=== PATIENT | male | born 1935 | race Caucasian/White ===

== ENCOUNTER → 2018-03-22 09:49 | Outpatient (CLI) | payer MEDICARE, OTHER, SELFPAY ==
[2018-03-22 10:45] LABS: BUN Creatinine Ratio 17.1 (6-22); Blood Urea Nitrogen 12 mg/dL (9-20); Calcium 9.2 mg/dL (8.4-10.2); Carbon Dioxide 32 mmol/L (22-32); Chloride 97 mmol/L (98-107); Estimated Glomerular Filt Rate > 60.0 mL/min (>60); Glucose 99 mg/dL (80-110); HEMOLYSIS < 15 (0-50); Potassium 4.1 mmol/L (3.4-5.1); Sodium 140 mmol/L (137-145)
== END ==
PROVIDERS: PCP Internal Medicine; Visit Provider Internal Medicine
DX: I10 Essential (primary) hypertension (principal)
CPT/HCPCS: 36415; 80048

== ENCOUNTER → 2018-06-13 07:24 | Outpatient (CLI) | payer MEDICARE, OTHER, SELFPAY ==
[2018-06-13 08:37] LABS: Alanine Aminotransferase 27 IU/L (21-72); Albumin 4.3 g/dL (3.5-5.0); Albumin Globulin Ratio 1.6 (1.0-2.8); Alkaline Phosphatase 49 U/L (38-126); Aspartate Aminotransferase 26 IU/L (17-59); BUN Creatinine Ratio 17.1 (6-22); Bilirubin Total 0.8 mg/dL (0.2-1.3); Blood Urea Nitrogen 12 mg/dL (9-20); Calcium 8.9 mg/dL (8.4-10.2); Carbon Dioxide 29 mmol/L (22-32); Chloride 102 mmol/L (98-107); Estimated Glomerular Filt Rate > 60.0 mL/min (>60); Globulin 2.7 g/dL (1.7-4.1); Glucose 95 mg/dL (80-110); HEMOLYSIS < 15 (0-50); Potassium 4.1 mmol/L (3.4-5.1); Sodium 142 mmol/L (137-145)
[2018-06-16 10:39] LABS: Lipoprofile NMR SEE SEPARATE REPORTS
== END ==
PROVIDERS: Family Provider Internal Medicine; PCP Internal Medicine; Visit Provider Specialist
DX: I10 Essential (primary) hypertension (principal); E78.2 Mixed hyperlipidemia
CPT/HCPCS: 36415; 80053; 83704

== ENCOUNTER → 2019-05-24 07:59 | Outpatient (CLI) | payer MEDICARE, OTHER, SELFPAY ==
[2019-05-24 09:17] LABS: Alanine Aminotransferase 19 IU/L (21-72); Albumin 4.5 g/dL (3.5-5.0); Albumin Globulin Ratio 1.5 (1.0-2.8); Alkaline Phosphatase 47 U/L (38-126); Aspartate Aminotransferase 27 IU/L (17-59); BUN Creatinine Ratio 17.5 (6-22); Bilirubin Total 0.7 mg/dL (0.2-1.3); Blood Urea Nitrogen 14 mg/dL (9-20); Calcium 9.2 mg/dL (8.4-10.2); Carbon Dioxide 31 mmol/L (22-32); Chloride 102 mmol/L (98-107); Estimated Glomerular Filt Rate > 60.0 mL/min (>60); Globulin 3.1 g/dL (1.7-4.1); Glucose 104 mg/dL (80-110); HEMOLYSIS 17 (0-50); Magnesium 2.3 mg/dL (1.6-2.3); Sodium 140 mmol/L (137-145); Total Protein 7.6 g/dL (6.3-8.2)
[2019-05-24 09:50] LABS: Thyroid Stimulating Hormone 1.63 uIU/mL (0.47-4.68)
[2019-05-28 08:29] LABS: Lipoprofile NMR SEE SEPARATE REPORTS
== END ==
PROVIDERS: PCP Internal Medicine; Visit Provider Specialist
DX: I10 Essential (primary) hypertension (principal); E78.2 Mixed hyperlipidemia
CPT/HCPCS: 36415; 80053; 83704; 83735; 84443

== ENCOUNTER → 2019-07-11 10:43 | Outpatient (CLI) | payer MEDICARE, OTHER, SELFPAY ==
--- NOTE | 2019-07-12 18:43 | DI.NM.S_ITS ---
DATE OF SERVICE: 07/11/2019 PROCEDURE PERFORMED: Exercise treadmill stress and rest myocardial perfusion imaging study with gating to assess ejection fraction and regional wall motion. ORDERING PROVIDER: Stan Boss MD INDICATIONS: The patient is a 84-year-old male status post LAD stenting in 2012 who now presents with increased exertional dyspnea and chest tightness. EXERCISE TREADMILL TESTING: The patient was able to exercise for 7 minutes 3 seconds on a standard Juan R protocol suggesting excellent exercise capacity with an LORELEI of -43% without any chest discomfort. He had a normal hemodynamic response achieving a maximum heart rate of 152 bpm (111% of his predicted maximum). He had a normal blood pressure response with a resting blood pressure of 120/60 increasing to a maximum of 180/62. His resting ECG shows probable LVH with mild ST-segment shifts abnormalities which become slightly accentuated with stress but remains nonspecific for ischemia. He had rare PVCs in recovery but no complex ectopy. At 6 minutes of exercise, at heart rate of 142 bpm, 26.0 mCi of technetium-99 Myoview was injected and the patient was imaged 15 minutes later using a gated SPECT acquisition protocol. He returned the following day and was reinjected with an additional 26.2 mCi of technetium-99 Myoview and was imaged 30 minutes later, again using a gated SPECT acquisition protocol. FINDINGS: 1. Raw Data: There is fairly good myocardial tracer uptak although there is clearly diaphragmatic and splenic attenuation of the inferior and inferolateral wall on both stress and rest images. The lung/heart ratio is normal at 0.31 with a normal TID ratio of 0.77. 2. Quantitative Gated SPECT: Post stress ejection fraction is 73% without any focal wall motion abnormality and specifically, the inferior wall appears to have fairly normal contractility. The resting ejection fraction is 67% with a similar contraction pattern. Resting end-diastolic volume is borderline increased at 121 mL. 3. Myocardial Perfusion Imaging: Post stress supine images shows a fairly prominent perfusion defect in the majority of the inferior wall from the apex to base but this defect nearly completely resolves on the prone images with a very subtle defect in the eyd-nt-onayla inferior wall with the remaining segment showing normal perfusion. There are no other perfusion defects. The resting images show a similar perfusion pattern with a more profound defect in the inferior wall and no areas of improvement. CONCLUSION: 1. Probable normal myocardial perfusion study. 2. Moderate-sized moderate fixed perfusion defect that nearly completely resolves on the prone images with raw data evidence of significant diaphragmatic attenuation. This most likely reflects diaphragmatic attenuation artifact. While a previous inferior infarction cannot be entirely excluded, the absence of any wall motion abnormality in this area mitigates against this. There is no evidence for any significant myocardial ischemia. 3. Normal left ventricular systolic function without focal wall motion abnormality and volumes at the upper limits of normal. 4. Excellent exercise capacity without angina or ECG evidence of ischemia. There were rare PVCs in recovery. Ar Ross - TRUONG/susan/ doc#: [id number]/job#: [id number] dd: 07/12/2019 17:43:00 dt: 07/12/2019 18:18:00 DICTATING /COPIES TO: Stan Boss MD COPIES MNE: LUC
== END ==
PROVIDERS: PCP Internal Medicine; Visit Provider Specialist
DX: R07.2 Precordial pain (principal); R06.09 Other forms of dyspnea; R07.89 Other chest pain; Z95.5 Presence of coronary angioplasty implant and graft
CPT/HCPCS: 78452; 93016; 93017; 93018; A9502

== ENCOUNTER → 2020-01-12 08:03 | Outpatient (CLI) | payer MEDICARE, OTHER, SELFPAY ==
[2020-01-12 09:17] LABS: Alanine Aminotransferase 20 IU/L (<50); Albumin 4.4 g/dL (3.5-5.0); Albumin Globulin Ratio 1.4 (1.0-2.8); Alkaline Phosphatase 48 U/L (38-126); Aspartate Aminotransferase 29 IU/L (17-59); BUN Creatinine Ratio 19.7 (6-22); Bilirubin Total 0.7 mg/dL (0.2-1.3); Blood Urea Nitrogen 13 mg/dL (9-20); Calcium 8.9 mg/dL (8.4-10.2); Carbon Dioxide 28 mmol/L (22-32); Chloride 104 mmol/L (98-107); Estimated Glomerular Filt Rate > 60.0 mL/min (>60); Globulin 3.2 g/dL (1.7-4.1); Glucose 104 mg/dL (80-110); HEMOLYSIS < 15 (0-50); Magnesium 2.2 mg/dL (1.6-2.3); Potassium 3.8 mmol/L (3.4-5.1); Sodium 139 mmol/L (137-145); Total Protein 7.6 g/dL (6.3-8.2)
[2020-01-15 07:45] LABS: Cholesterol, Total 120 mg/dL (100-199); HDL-Cholesterol 51 mg/dL (>39); HDL-Particle (Total) 34.8 umol/L (>=30.5); Historical Reading Comment: (.); LDL Particle 632 nmol/L (<1000); LDL Size 20.6 nm (>20.5); LDL-Cholsterol 55 mg/dL (0-99); LP-IR Score 37 (<=45); Small LDL- Particle 240 nmol/L (<=527); Triglycerides 71 mg/dL (0-149)
== END ==
PROVIDERS: PCP Internal Medicine; Referring Provider Specialist; Visit Provider Specialist
DX: I25.10 Atherosclerotic heart disease of native coronary artery without angina pectoris (principal); I10 Essential (primary) hypertension; E78.2 Mixed hyperlipidemia; E78.1 Pure hyperglyceridemia
CPT/HCPCS: 36415; 80053; 80061; 83704; 83735

== ENCOUNTER 2020-02-18 09:10 | Emergency (ER) | payer MEDICARE, OTHER, SELFPAY ==
[2020-02-18] VITALS (11 sets, daily range): BP systolic 136–162; BP diastolic 64–78; PULSE 62–78; RESP 12–18; TEMP 36.7; O2SAT 98–99; BMI 24.6
--- NOTE | 2020-02-18 10:02 | DI.CT.S_ITS ---
PROCEDURE: CT HEAD/BRAIN WO CON INDICATIONS: frontal headache for 4 days TECHNIQUE: Noncontrast 4.5 mm thick angled axial sections acquired from the foramen magnum to the vertex, with coronal and sagittal reformats. For radiation dose reduction, the following was used: automated exposure control, adjustment of mA and/or kV according to patient size. COMPARISON: [facility], CT, SINUS SCREEN WO CONTRAST, 09/27/2017, 11:19. FINDINGS: Image quality: Excellent. CSF spaces: Basal cisterns are patent. No extra-axial fluid collections. The ventricles are symmetric in size and shape. Brain: There bilateral nearly holo-hemispheric subdural fluid collections identified. The larger is identified on the lateral with greatest transverse dimension measuring 12 millimeters compared to 8 mm on the right. There is an approximate 6 mm left to right midline shift. While portions of the subdural fluid collection are isodense, there are intermixed areas of hyperdensity particularly notable within the temporoparietal lobes bilaterally. There is cerebral volume loss for age, with resultant ventricular and sulcal prominence. There are periventricular and deep white matter chronic small vessel ischemic changes. There is intracranial internal carotid artery atherosclerosis. Skull and face: Calvarium and visualized facial bones appear intact, without suspicious lesions. Sinuses: Visualized sinuses and mastoids are clear. IMPRESSION: Blateral acute on subacute subdura hematomas with midline shift. Above was discussed with Dr. Milner on 02/18/20 at 10:32am. Dictated by: Andree Kidd M.D. on 02/18/2020 at 10:32 Approved by: Andree Kidd M.D. on 02/18/2020 at 10:41
[2020-02-18 10:10] LABS: Add Manual Diff / Slide Review NO; Basophils Absolute Auto 100 /uL (0-100); Basophils Percent Auto 0.9 % (0-2); Eosinophils Absolute Auto 200 /uL (0-450); Eosinophils Percent Auto 2.3 % (2-4); Hematocrit 40.1 % (41-53); Hemoglobin 13.7 g/dL (13.5-17.5); Lymphocytes Absolute Auto 2000 /uL (1100-4500); Lymphocytes Percent Auto 27.9 % (25-40); Mean Corpuscular HGB Conc 34.2 % (30-36); Mean Corpuscular Hemoglobin 32.2 PG (26-34); Mean Corpuscular Volume 94.1 fL (80-100); Monocytes Absolute Auto 1000 /uL (0-900); Neutrophils Absolute Auto 3800 /uL (1500-7000); Neutrophils Percent Auto 54.9 % (50-75); Platelet Count 162 X10^3/uL (150-400); Red Blood Cell Count 4.26 X10^6/uL (4.5-5.9); Red Cell Distribution Width 13.1 % (11.6-14.8)
[2020-02-18 10:17] LABS: Alanine Aminotransferase 16 IU/L (<50); Albumin 4.3 g/dL (3.5-5.0); Albumin Globulin Ratio 1.5 (1.0-2.8); Alkaline Phosphatase 41 U/L (38-126); Aspartate Aminotransferase 27 IU/L (17-59); Bilirubin Total 0.5 mg/dL (0.2-1.3); Blood Urea Nitrogen 11 mg/dL (9-20); Calcium 9.2 mg/dL (8.4-10.2); Carbon Dioxide 24 mmol/L (22-32); Chloride 106 mmol/L (98-107); Estimated Glomerular Filt Rate > 60.0 mL/min (>60); Globulin 2.8 g/dL (1.7-4.1); Glucose 104 mg/dL (80-110); HEMOLYSIS 23 (0-50); Sodium 138 mmol/L (137-145); Total Protein 7.1 g/dL (6.3-8.2)
--- NOTE | 2020-02-18 10:19 | ED.HA ---
HPI - Headache General Chief Complaint: Headache Stated Complaint: headaches Time Seen by Provider: 02/18/20 09:49 Source: patient and old records reviewed Mode of arrival: Ambulatory Limitations: no limitations History of Present Illness HPI Narrative: Patient is a 84-year-old male who presents with a headache ongoing for the last 4 days. He says it is in the frontal region worse when he leans forward or coughs. He is actually quite tender on both his temples he says. He denies any fever no numbness tingling or weakness. He says in the last 30 minutes he got a little bit nauseous but typically is not nauseous. He states that he is not sensitive to light or noise movement is what makes it worse. His he says he does not typically get headaches however our records indicate that he was seen at the pain clinic for a headache very similar to this in 2018. He was seen by ENT it was recommended that he have an MRI however the patient was not having symptoms at the time of evaluation so MRI was never done. MD Complaint: headache Onset (ago): day(s) Related Data Home Medications Medication Instructions Recorded Confirmed ASCORBIC ACID (VITAMIN C) 1,000 mg PO QDAY #0 01/10/13 09/14/18 CA PANTOTHENATE/FOLIC ACID/VIT 1 tab PO QDAY #0 01/10/13 09/14/18 (MULTIVITAMIN) Fish Oil (FISH OIL~) 1,200 mg PO BID #0 01/10/13 09/14/18 VITAMIN D (Vitamin D3) 1,000 unit PO QDAY #0 01/10/13 09/14/18 ASPIRIN (Aspir-Low) 81 mg PO QDAY #0 03/12/13 09/14/18 losartan 50 mg PO BID #0 03/12/13 09/14/18 amlodipine 10 mg tablet 10 mg PO DAILY 09/14/18 09/14/18 ascorbic acid (vitamin C) 1,000 mg 1,000 mg PO Q12H 09/14/18 09/14/18 tablet,extended release cholecalciferol (vitamin D3) unit PO ml 09/14/18 09/14/18 diphenhydramine 25 1 tab PO BEDTIME PRN 09/14/18 09/14/18 mg-acetaminophen 500 mg tablet fluticasone propionate 50 2 spray NASAL DAILY 09/14/18 09/14/18 mcg/actuation nasal spray,suspension hydrochlorothiazide 25 mg tablet 25 mg PO DAILY 09/14/18 09/14/18 ipratropium bromide 0.03 % nasal 2 spray NASAL BID-TID PRN 09/14/18 09/14/18 spray meclizine 25 mg tablet 25 mg PO BID PRN 09/14/18 09/14/18 metoprolol tartrate 25 mg tablet 25 mg PO ONCE tab 09/14/18 09/14/18 multivitamin 1 tab PO DAILY 09/14/18 09/14/18 omega 4-evv-mbi-fish oil 100 cap PO cap 09/14/18 09/14/18 mg-160 mg-1,000 mg capsule ondansetron 4 mg disintegrating 4 mg PO TID PRN 09/14/18 09/14/18 tablet Previous Rx's Medication Instructions Recorded atorvastatin [Lipitor] 40 mg PO HS #30 02/02/13 Allergies Allergy/AdvReac Type Severity Reaction Status Date / Time No Known Drug Allergies Allergy Verified 09/14/18 13:20 Review of Systems Review of Systems Narrative: GENERAL: Denies chills, fatigue, malaise, fever, sweats, travel HEENT: Denies sinus pain, ear pain, sore throat, difficulty swallowing, neck pain RESPIRATORY: Denies dyspnea, cough, wheezing, hemoptysis, sputum. CARDIOVASCULAR: Denies chest pain, palpitations, orthopnea, edema GASTROINTESTINAL: Denies nausea, vomiting, abdominal pain, diarrhea, constipation, melena. : Denies dysuria, frequency, incontinence, hematuria, urinary retention, flank pain. MUSCULOSKELETAL: Denies weakness, joint pain, or bony pain SKIN: No rash, no erythema, no pruritus NEUROLOGIC: See HPI PSYCHIATRIC: No concerning psychosocial issues. 12 point review of systems is negative except for those stated above and HPI Patient History Medical History (Updated 02/18/20 @ 11:29 by Basilia Milner DO) Hypertension (Acute) Menieres disease (Acute) Social History Smoking Status: Never smoker Smoking Status: Never smoker alcohol intake frequency: 0-2 drinks per day Substance Use Type: marijuana Exam Initial Vital Signs Initial Vital Signs: Vital Signs Blood Pressure 162/78 H 02/18/20 09:14 GENERAL: Alert well-appearing elderly gentleman HEENT: Head atraumatic, a tender on bilateral temporal EOMI, pupils reactive, face symmetric, moist mucous membranes CARDIOVASCULAR: Regular rate and rhythm without murmurs, rubs or gallops. RESPIRATORY: Breath sounds equal bilaterally, no wheezes rales or rhonchi. ABDOMEN: Soft, nontender. Normoactive bowel sounds all 4 quadrants. No guarding or rebound. EXTREMITIES: Normal range of motion, no clubbing or edema. Neurovascularly intact NEUROLOGICAL: Alert and oriented x4.Normal gait and speech. Cranial nerves II through XII grossly intact. Good oyqadi-sq-nvoj, good pokm-ys-fegt, strength equal bilaterally, no dysarthria or aphasia, sensation in tact to soft touch bilaterally, no visual changes, no facial droop SKIN: Warm, dry, no laceration, no petechiae, no rashes or lesions. Scores NIH Stroke Scale Level of Conciousness: Alert, keenly responsive Ask month/age: Answers both questions correctly. Open/close eyes, close hand: Performs both tasks correctly Best gaze horizontal: Normal Visual garcia: No visual loss Facial palsy: Normal symetrical movement Left arm drift: No drift for full 10 sec Right arm drift: No drift for full 10 sec Left leg drift: No drift for full 10 sec Right leg drift: No drift for full 10 sec Limb ataxia: Absent Sensory on face/arms/legs: Normal, no sensory loss Best language: No aphasia, normal Dysarthria: Normal Extinction or inattention: No abnormality Total NIH Stroke scale score: 0 Course Orders Ordered: ED Orders 02/18/20 09:35 Prothrombin Time INR Stat 02/18/20 09:55 C-Reactive Protein Quant Stat Complete Blood Count AUTO DIFF Stat Comprehensive Metabolic Panel Stat Erythrocyte Sedimentation Rate Stat 02/18/20 10:02 CT head/brain wo con Stat Discontinued Medications Sodium Chloride (Normal Saline 0.9%) 1,000 mls @ 150 mls/hr IV CONT MENDY Last Infusion: 02/18/20 12:08 Dose: 150 mls/hr Documented by: Admin: 02/18/20 10:25 Dose: 150 mls/hr Documented by: ANOOP Ketorolac Tromethamine (Toradol) 15 mg IV NOW ONE Stop: 02/18/20 10:03 Last Admin: 02/18/20 10:24 Dose: 15 mg Documented by: ANOOP Morphine Sulfate (Morphine) 2 mg IV NOW ONE Stop: 02/18/20 11:21 Last Admin: 02/18/20 11:29 Dose: 2 mg Documented by: ANOOP Ondansetron HCl (Zofran) 4 mg IV NOW ONE Stop: 02/18/20 10:03 Last Admin: 02/18/20 10:24 Dose: 4 mg Documented by: ANOOP Vital Signs Vital signs: Vital Signs - 8 hr 02/18/20 10:30 02/18/20 11:00 02/18/20 11:30 Pulse Rate 62 68 70 Respiratory Rate 12 17 18 Blood Pressure 136/64 151/71 H 152/69 H Pulse Oximetry 99 99 99 MDM - Headache Lab Data Attestation: I reviewed the patient's lab results. Result diagrams: 02/18/20 09:55 02/18/20 09:55 Labs: Lab Results 02/18/20 02/18/20 02/18/20 Range/Units 09:35 09:55 09:55 WBC 7.0 (4.5-11.0) X10^3/uL RBC 4.26 L (4.5-5.9) X10^6/uL Hgb 13.7 (13.5-17.5) g/dL Hct 40.1 L (41-53) % MCV 94.1 (80-100) fL MCH 32.2 (26-34) PG MCHC 34.2 (30-36) % RDW 13.1 (11.6-14.8) % Plt Count 162 (150-400) X10^3/uL Neut % (Auto) 54.9 (50-75) % Lymph % (Auto) 27.9 (25-40) % Atkinson % (Auto) 14.0 (3-14) % Eos % (Auto) 2.3 (2-4) % Baso % (Auto) 0.9 (0-2) % Neut # (Auto) 3800 (5706-0586) /uL Lymph # (Auto) 2000 (6804-1845) /uL Atkinson # (Auto) 1000 H (0-900) /uL Eos # (Auto) 200 (0-450) /uL Baso # (Auto) 100 (0-100) /uL ESR 4 (0-15) MM/HR PT 12.0 (10.1-12.7) SECONDS INR 1.0 (0.9-1.3) Sodium 138 (137-145) mmol/L Potassium 4.0 (3.4-5.1) mmol/L Chloride 106 (98-107) mmol/L Carbon Dioxide 24 (22-32) mmol/L BUN 11 (9-20) mg/dL Creatinine 0.61 L (0.66-1.25) mg/dL Estimated GFR > 60.0 (>60) mL/min BUN/Creatinine Ratio 18.0 (6-22) Glucose 104 (80-110) mg/dL Calcium 9.2 (8.4-10.2) mg/dL Total Bilirubin 0.5 (0.2-1.3) mg/dL AST 27 (17-59) IU/L ALT 16 (<50) IU/L Alkaline Phosphatase 41 (38-126) U/L C-Reactive Protein < 0.5 (<1.0) mg/dL Total Protein 7.1 (6.3-8.2) g/dL Albumin 4.3 (3.5-5.0) g/dL Globulin 2.8 (1.7-4.1) g/dL Albumin/Globulin Ratio 1.5 (1.0-2.8) Imaging Data CT scan - head: Radiologist's Impression: PROCEDURE: CT HEAD/BRAIN WO CON INDICATIONS: frontal headache for 4 days TECHNIQUE: Noncontrast 4.5 mm thick angled axial sections acquired from the foramen magnum to the vertex, with coronal and sagittal reformats. For radiation dose reduction, the following was used: automated exposure control, adjustment of mA and/or kV according to patient size. COMPARISON: [facility], CT, SINUS SCREEN WO CONTRAST, 09/27/2017, 11:19. FINDINGS: Image quality: Excellent. CSF spaces: Basal cisterns are patent. No extra-axial fluid collections. The ventricles are symmetric in size and shape. Brain: There bilateral nearly holo-hemispheric subdural fluid collections identified. The larger is identified on the lateral with greatest transverse dimension measuring 12 millimeters compared to 8 mm on the right. There is an approximate 6 mm left to right midline shift. While portions of the subdural fluid collection are isodense, there are intermixed areas of hyperdensity particularly notable within the temporoparietal lobes bilaterally. There is cerebral volume loss for age, with resultant ventricular and sulcal prominence. There are periventricular and deep white matter chronic small vessel ischemic changes. There is intracranial internal carotid artery atherosclerosis. Skull and face: Calvarium and visualized facial bones appear intact, without suspicious lesions. Sinuses: Visualized sinuses and mastoids are clear. IMPRESSION: Blateral acute on subacute subdura hematomas with midline shift. Above was discussed with Dr. Milner on 02/18/20 at 10:32am. Dictated by: Andree Kidd M.D. on 02/18/2020 at 10:32 MDM Narrative Medical decision making narrative: Radiology called with positive head CT. Unfortunately patient did get 15 mg of Toradol he also takes aspirin 81 mg daily. He remains neurologically intact. Dr. Wilkins, ED physician at [facility] have been updated on patient's symptoms test results agrees with transfer images have been pushed. Requests that patient be air lifted to [facility] with midline shift. I have discussed mode of transport with patient and spouse he agrees. Stat COVID 19 test is pending I discussed all findings with the patient and , Education has been performed regarding treatment plan, diagnosis, warning signs and symptoms and all concerns have been addressed. Verbally agree with and understood all of the above. Critical Care Time Critical Care Time Critical Care Time: Yes Total Critical Care Time: 30 Attestation: The high probability of a clinically significant, sudden or life threatening deterioration of the neurovascular system(s) required my full and direct attention, intervention and personal management. The aggregate critical care time was 30 minutes. This time is in addition to time spent performing reported procedures but includes the following: [x] Data Review and interpretation [x] Patient assessment and monitoring of vital signs [x] Documentation [x] Medication orders and management Discharge Plan Departure [facility] Impression: Subdural hematoma Discharge Date/Time: 02/18/20 12:07 Prescriptions: No Action ASCORBIC ACID (VITAMIN C) 1,000 mg PO QDAY Qty: 0 RF: 0 CA PANTOTHENATE/FOLIC ACID/VIT (MULTIVITAMIN) 1 tab PO QDAY Qty: 0 RF: 0 VITAMIN D (Vitamin D3) 1,000 unit PO QDAY Qty: 0 RF: 0 Fish Oil (FISH OIL~) 1,200 mg PO BID Qty: 0 RF: 0 atorvastatin [Lipitor] 40 MG tablet 40 mg PO HS Qty: 30 RF: 2 ASPIRIN (Aspir-Low) 81 mg PO QDAY Qty: 0 RF: 0 losartan 50 MG tablet 50 mg PO BID Qty: 0 RF: 0 metoprolol tartrate 25 mg tablet 25 mg PO ONCE RF: 0 amlodipine 10 mg tablet 10 mg PO DAILY RF: 0 hydrochlorothiazide 25 mg tablet 25 mg PO DAILY RF: 0 fluticasone propionate 50 mcg/actuation spray,suspension 2 spray NASAL DAILY RF: 0 ipratropium bromide 0.03 % spray,non-aerosol 2 spray NASAL BID-TID PRNRF: 0 meclizine 25 mg tablet 25 mg PO BID PRNRF: 0 ondansetron 4 mg tablet,disintegrating 4 mg PO TID PRNRF: 0 multivitamin tablet 1 tab PO DAILY RF: 0 cholecalciferol (vitamin D3) 1,000 unit/drop drops PO RF: 0 ascorbic acid (vitamin C) 1,000 mg tablet extended release 1,000 mg PO Q12H RF: 0 Fish Oil 100-160-1,000 mg capsule PO RF: 0 diphenhydramine-acetaminophen [Tylenol PM Extra Strength] 25-500 mg tablet 1 tab PO BEDTIME PRNRF: 0 Referrals: Titi Segal MD [Primary Care Provider] -
[2020-02-18] MEDS: KETOROLAC 60 MG/2 ML VIAL 15 MG IV (10:24)
[2020-02-18] MEDS: ONDANSETRON 4 MG/2 ML INJ IV (10:24)
[2020-02-18] MEDS: SODIUM CHLORIDE 0.9% 1,000 ML 150 ML IV (10:25)
[2020-02-18 10:29] LABS: C-Reactive Protein Quant < 0.5 mg/dL (<1.0)
[2020-02-18 10:49] LABS: Erythrocyte Sedimentation Rate 4 MM/HR (0-15)
[2020-02-18] MEDS: MORPHINE 2 MG/ML INJ IV (11:29)
[2020-02-21 11:09] LABS: COVID19 Sendout Not Detected (Not Detected)
== END 2020-02-18 12:07 | disposition short-term general hospital (02) ==
PROVIDERS: Emergency Provider Emergency Medicine; PCP Internal Medicine
DX: I62.02 Nontraumatic subacute subdural hemorrhage (principal); R11.0 Nausea; I10 Essential (primary) hypertension; Z11.59 Encounter for screening for other viral diseases
CPT/HCPCS: 36415; 70450; 80053; 85025; 85610; 85651; 86140; 87635; 96361; 96374; 96375; 99284; 99291; J1885; J2270; J2405

== ENCOUNTER → 2020-03-22 09:25 | Outpatient (CLI) | payer MEDICARE, OTHER, SELFPAY ==
[2020-03-23 21:08] LABS: COVID19 Sendout Not Detected (Not Detect)
== END ==
PROVIDERS: PCP Internal Medicine; Visit Provider Physician Assistant
DX: Z11.59 Encounter for screening for other viral diseases (principal)
CPT/HCPCS: 87635

== ENCOUNTER 2020-03-25 08:02 | Day surgery (SDC) | payer MEDICARE, OTHER, SELFPAY ==
[2020-03-25] MEDS: PROPARACAINE 0.5% OPHTH SOL 2 DROPS EYE-OP (08:42)
[2020-03-25] MEDS: CATARACT EYE COMPOUND (10 DROPS/SYRINGE) 3 DROPS EYE-OP (08:43)
[2020-03-25 08:45] VITALS: BP 113/69; PULSE 84; RESP 16; TEMP 36.1; O2SAT 98
[2020-03-25 08:48] VITALS: BMI 26.2
--- NOTE | 2020-03-25 09:36 | P.OP_ITS ---
Operative Date/Time/Diagnoses Pre-op diagnosis: Nuclear Cataract Left eye Post-op diagnosis: same Procedure & Clinicians Same procedure as scheduled: Yes Surgeon: Marciano Bower Anesthesia Type: MAC +/- and Sedation Operative Notes Procedure in detail: Patient brought to the operating suite. Tetracaine drops placed in the left eye. Patient was prepped and draped in sterile manner. Wire lid speculum was placed in the eye. Betadine drops were placed on the eye. This was irrigated. Lidocaine jelly was placed on the eye. A paracentesis port was created with a side-port blade. 0.1 mL 1% preservative free lidocaine was injected into the anterior chamber. The anterior chamber was deepened with viscoelastic. 2.6 mm keratome was used to create a temporal clear corneal incision. Cystotome and Utrata forceps were used to create continuous tear capsulorrhexis. Balanced salt solution was used to hydro dissect the nucleus. The phacoemulsification handpiece was inserted and the nucleus was removed using the stop and chop technique. The irrigation aspiration handpiece was inserted and the remaining cortex was removed. Anterior chamber was deepened with viscoe lastic. An Choi ZCB00 intraocular lens with a power of ??? was injected into the capsular bag. Irrigation aspiration handpiece was inserted and the remaining viscoelastic was removed. Incision was hydrated with balanced salt solution and found to be leak free with pressure with Weck-Gissel sponges. 0.1 mL Vigamox injected anterior chamber. 0.3 mL Kenalog 10 mg was injected subconjunctivally. Lid speculum was removed. The patient left the operating room in excellent condition. Complications: none Post-operative Condition: stable Disposition: same day surgery
--- NOTE | 2020-03-25 09:36 | PM.PREOP ---
Pre-operative Note Interval Note History & Physical reviewed/Exam performed by Physician: Yes Changes to H&P: No
--- NOTE | 2020-03-25 09:57 | SUR.OPER ---
Supine on eye stretcher, head on extension cradle secured with tape. Arms tucked at sides with blanket. Pillow under knees.
[2020-03-25] MEDS: CHONDROIDTIN/SOD HYALURONATE 1.05 ML SYRINGE INTRAOCULA (10:01)
[2020-03-25] MEDS: LIDOCAINE JELLY 2% 5 ML 1 APPLIC TOP (10:02)
[2020-03-25] MEDS: PHENYLEPHRINE/LIDOCAINE VIAL (OR) 0.2 ML EYE-OP (10:02)
[2020-03-25] MEDS: MOXIFLOXACIN INJ 5 MG/ML VIAL EYE-OP (10:02)
[2020-03-25] MEDS: TETRACAINE 0.5% OPHTH DROPS 4 ML 2 DROPS EYE-OP (10:03)
[2020-03-25] MEDS: TRIAMCINOLONE 50 MG/5 ML VIAL INJ (10:03)
[2020-03-25] MEDS: BALANCED SALT IRRIG SOLN NO.2 500 ML, EPINEPHrine 1 MG IRR (10:03)
[2020-03-25 10:12] VITALS: BP 93/63; PULSE 86; RESP 15; TEMP 36.2; O2SAT 97
[2020-03-25 11:26] VITALS: BP 102/61; PULSE 87; O2SAT 95
== END 2020-03-25 10:22 | disposition home or self-care (01) ==
PROVIDERS: PCP Internal Medicine; Referring Provider Ophthalmology; Visit Provider Ophthalmology
PROC: (CPT 66984; principal; 2020-03-25 09:45)
DX: H25.12 Age-related nuclear cataract, left eye (principal); I10 Essential (primary) hypertension; I25.2 Old myocardial infarction
CPT/HCPCS: 66984; J0171; J2250; J3301

== ENCOUNTER → 2020-03-28 11:24 | Outpatient (CLI) | payer MEDICARE, OTHER, SELFPAY ==
--- NOTE | 2020-03-28 | DI.CT.S_ITS ---
PROCEDURE: CT HEAD/BRAIN WO CON INDICATIONS: Traumatic subdural hemorrhage with loss of conscio TECHNIQUE: Noncontrast 4.5 mm thick angled axial sections acquired from the foramen magnum to the vertex, with coronal and sagittal reformats. For radiation dose reduction, the following was used: automated exposure control, adjustment of mA and/or kV according to patient size. COMPARISON: None. FINDINGS: Image quality: Excellent. CSF spaces: Basal cisterns are patent. The ventricles are symmetric in size and shape. Brain: There is a small amount of left-sided subdural hemorrhage seen, with a maximal thickness of 3 mm. This is nearly completely resolved compared to the prior examination. The previously seen right-sided subdural hemorrhage is considered to have resolved. No new hemorrhage is seen. No intracranial bleeds or masses. There is cerebral volume loss for age, with resultant ventricular and sulcal prominence. There are periventricular and deep white matter chronic small vessel ischemic changes. There is intracranial internal carotid artery atherosclerosis. Skull and face: Bilateral crystal holes can be seen. Calvarium and visualized facial bones appear intact, without suspicious lesions. Sinuses: Visualized sinuses and mastoids are clear. IMPRESSION: Interval bilateral crystal holes, with near complete resolution of the left-sided subdural hemorrhage, with no hemorrhage now seen on the right. No new areas of hemorrhage can be seen. Dictated by: Kilo Enciso M.D. on 03/28/2020 at 11:03 Approved by: Kilo Enciso M.D. on 03/28/2020 at 11:05
== END ==
PROVIDERS: PCP Internal Medicine; Referring Provider Internal Medicine; Visit Provider Internal Medicine
DX: S06.5X9D Traumatic subdural hemorrhage with loss of consciousness of unspecified duration, subsequent encounter (principal)
CPT/HCPCS: 70450

== ENCOUNTER → 2020-04-05 11:14 | Outpatient (CLI) | payer MEDICARE, OTHER, SELFPAY ==
[2020-04-06 09:33] LABS: COVID19 Sendout Not Detected (Not Detect)
== END ==
PROVIDERS: PCP Internal Medicine; Visit Provider Physician Assistant
DX: Z11.59 Encounter for screening for other viral diseases (principal)
CPT/HCPCS: 87635

== ENCOUNTER 2020-04-08 08:24 | Day surgery (SDC) | payer MEDICARE, OTHER, SELFPAY ==
[2020-04-08] MEDS: PROPARACAINE 0.5% OPHTH SOL 2 DROPS EYE-OP (09:05)
[2020-04-08 09:06] VITALS: BP 112/70; PULSE 90; RESP 16; TEMP 36.2; O2SAT 97
[2020-04-08] MEDS: CATARACT EYE COMPOUND (10 DROPS/SYRINGE) 3 DROPS EYE-OP (09:09)
[2020-04-08 09:11] VITALS: BMI 25.1
--- NOTE | 2020-04-08 09:48 | PM.PREOP ---
Pre-operative Note Interval Note History & Physical reviewed/Exam performed by Physician: Yes Changes to H&P: No
--- NOTE | 2020-04-08 09:48 | PM.OP.1 ---
Operative Date/Time/Diagnoses Pre-op diagnosis: Nuclear cataract right eye Procedure & Clinicians Procedure: Cataract Surgery Same procedure as scheduled: Yes Surgeon: Marciano Bower Anesthesia Type: MAC +/- and Sedation Operative Notes Procedure in detail: Patient brought to the operating suite. Tetracaine drops placed in the right eye. Patient was prepped and draped in sterile manner. Wire lid speculum was placed in the eye. Betadine drops were placed on the eye. This was irrigated. Lidocaine jelly was placed on the eye. A paracentesis port was created with a side-port blade. 0.1 mL 1% preservative free lidocaine was injected into the anterior chamber. The anterior chamber was deepened with viscoelastic. 2.6 mm keratome was used to create a temporal clear corneal incision. Cystotome and Utrata forceps were used to create continuous tear capsulorrhexis. Balanced salt solution was used to hydro dissect the nucleus. The phacoemulsification handpiece was inserted and the nucleus was removed using the stop and chop technique. The irrigation aspiration handpiece was inserted and the remaining cortex was removed. Anterior chamber was deepened with viscoelastic. An Choi ZCB00 intraocular lens with a power of 20.5 was injected into the capsular bag. Irrigation aspiration handpiece was inserted and the remaining viscoelastic was removed. Incision was hydrated with balanced salt solution and found to be leak free with pressure with Weck-Gissel sponges. 0.1 mL Vigamox injected anterior chamber. 0.3 mL Kenalog 10 mg was injected subconjunctivally. Lid speculum was removed. The patient left the operating room in excellent condition. Complications: none Post-operative Condition: stable Disposition: same day surgery
[2020-04-08] MEDS: LIDOCAINE JELLY 2% 5 ML 1 APPLIC TOP (10:05)
[2020-04-08] MEDS: MOXIFLOXACIN INJ 5 MG/ML VIAL EYE-OP (10:06)
[2020-04-08] MEDS: CHONDROIDTIN/SOD HYALURONATE 1.05 ML SYRINGE INTRAOCULA (10:06)
[2020-04-08] MEDS: TRIAMCINOLONE 50 MG/5 ML VIAL INJ (10:06)
[2020-04-08] MEDS: PHENYLEPHRINE/LIDOCAINE VIAL (OR) 0.2 ML EYE-OP (10:06)
[2020-04-08] MEDS: BALANCED SALT IRRIG SOLN NO.2 500 ML, EPINEPHrine 1 MG IRR (10:07)
[2020-04-08] MEDS: TETRACAINE 0.5% OPHTH DROPS 4 ML 2 DROPS EYE-OP (10:07)
[2020-04-08 10:15] VITALS: BP 107/70; PULSE 87; RESP 16; TEMP 36.1; O2SAT 100
== END 2020-04-08 10:24 | disposition home or self-care (01) ==
PROVIDERS: PCP Internal Medicine; Referring Provider Internal Medicine; Visit Provider Ophthalmology
PROC: (CPT 66984; principal; 2020-04-08 10:15)
DX: H25.11 Age-related nuclear cataract, right eye (principal)
CPT/HCPCS: 66984; J0171; J2250; J3301

== ENCOUNTER → 2020-10-10 07:33 | Outpatient (CLI) | payer MEDICARE, OTHER, SELFPAY ==
[2020-10-10 08:49] LABS: Alanine Aminotransferase 19 IU/L (<50); Albumin 4.2 g/dL (3.5-5.0); Albumin Globulin Ratio 1.4 (1.0-2.8); Alkaline Phosphatase 51 U/L (38-126); Aspartate Aminotransferase 26 IU/L (17-59); Bilirubin Total 0.4 mg/dL (0.2-1.3); Blood Urea Nitrogen 14 mg/dL (9-20); Calcium 8.7 mg/dL (8.4-10.2); Carbon Dioxide 28 mmol/L (22-32); Chloride 107 mmol/L (98-107); Estimated Glomerular Filt Rate > 60.0 mL/min (>60); Globulin 2.9 g/dL (1.7-4.1); Glucose 100 mg/dL (80-110); HEMOLYSIS 16 (0-50); Magnesium 2.3 mg/dL (1.6-2.3); Potassium 3.9 mmol/L (3.4-5.1); Sodium 138 mmol/L (137-145); Total Protein 7.1 g/dL (6.3-8.2)
[2020-10-23 13:30] LABS: LDL Particle SEE SEPARATE REPORTS
== END ==
PROVIDERS: PCP Internal Medicine; Referring Provider Specialist; Visit Provider Specialist
DX: E78.00 Pure hypercholesterolemia, unspecified (principal); I10 Essential (primary) hypertension
CPT/HCPCS: 36415; 80053; 80061; 83704; 83735

== ENCOUNTER → 2020-11-13 11:06 | Outpatient (CLI) | payer MEDICARE, OTHER, SELFPAY ==
[2020-11-13 13:08] LABS: Thyroid Stimulating Hormone 0.864 uIU/mL (0.47-4.68)
== END ==
PROVIDERS: PCP Internal Medicine; Referring Provider Specialist; Visit Provider Specialist
DX: R00.0 Tachycardia, unspecified (principal)
CPT/HCPCS: 36415; 84443

== ENCOUNTER → 2020-11-22 09:00 | Outpatient (CLI) | payer MEDICARE, OTHER, SELFPAY ==
[2020-11-22 10:54] LABS: COVID19 -Nasal RAPID Negative (Negative)
== END ==
PROVIDERS: PCP Internal Medicine; Visit Provider Physician Assistant
DX: Z20.822 Contact with and (suspected) exposure to COVID-19 (principal)
CPT/HCPCS: 87635; C9803

== ENCOUNTER → 2020-11-24 10:14 | Outpatient (CLI) | payer MEDICARE, OTHER, SELFPAY ==
--- NOTE | 2020-11-24 10:16 | DI.NM.S_ITS ---
PROCEDURE: NM BRIDGETT PERF SPECT REST & STR Rest and exercise myocardial perfusion SPECT with gated imaging and ejection fraction RADIOPHARMACEUTICAL: 10.1 mCi Tc-99m sestamibi IV at rest and 26.2 mCi Tc-99m sestamibi IV at peak exercise. A one day-protocol was performed. INDICATIONS: Atherosclerotic heart disease TECHNIQUE: Radiopharmaceutical was injected at peak stress test, and also at rest. SPECT images were obtained. SPECT myocardial perfusion images were displayed in short axis, horizontal long axis, and vertical long axis views. Gated images were reviewed using Echo it software. COMPARISON: None. CARDIAC STRESS: A standard Juan R treadmill exercise tolerance test was performed by the patient under the supervision of an attending staff. The patient exercised for 7 minutes and 30 seconds; functional aerobic impairment (LORELEI) is -42%. Hemodynamic data: There is normal blood pressure and heart rate response to exercise stress. Patient achieved 104% of maximum predicted heart rate at peak exercise. Symptoms: Patient denied chest pain during exercise. EKG: Resting ECG shows sinus rhythm with minimal ST depressions in the inferior and anterolateral leads that become mild to moderate with exercise; occasional PVCs present. FINDINGS: Raw data: There is good myocardial labeling by radiotracer. No significant motion artifacts. Sseu-wu-evqpr ratio is 0.26 (normal is less than 0.38 for sestamibi tracer, and less than 0.50 for thallium tracer). Left ventricle function: Gated images demonstrate normal left ventricle wall thickening. No segmental wall motion abnormality. No transient ischemic dilation; TID is 0.88 (normal less than 1.3). The left ventricle resting end-diastolic volume is 123 mL. Left ventricle stress ejection fraction is 72%; normal values are above 45%. Myocardial perfusion: There is a mildly to moderately intense fixed inferior wall defect that resolves with prone imaging suggesting diaphragmatic attenuation artifact. No ischemia or infarction. IMPRESSION: Low risk, normal treadmill nuclear stress test. 1) No perfusion evidence of ischemia or infarction. 2) Normal left ventricular size, wall motion, and systolic function (EF post stress 72%). 3) ECG non-diagnostic due to baseline ST depressions that worsen with exercise. 4) No angina during the study. 5) Excellent exercise capacity (10.1 METs, LORELEI -42%). Target heart rate achieved. Appropriate BP response to exercise. 6) Compared to the nuclear stress test done 07/11/2019, no significant change. Dictated by: Jonnathan Barton MD on 11/24/2020 at 16:55 Approved by: Jonnathan Barton MD on 11/24/2020 at 17:01
--- NOTE | 2020-11-24 15:20 | PM.TREADMILL ---
Cardiac Stress Test Report Referral & Results Date Patient Seen: 11/24/20 Time Patient Seen: 15:20 Requesting provider: Stan Boss Indication: Atherosclerotic heart disease Rest ECG: sinus tachycardia with nonspecific ST changes and early repolarization Procedure Note: Standard Juan R protocol, 7:30, 8.3 METS Very good exercise capacity, LORELEI -42% Normal hemodynamic response to exercise No chest pain or anginal symptoms No significant ST changes at peak exercise Occasional multifocal PVCs and bigeminy in recovery Impression: Normal exercise stress test MIBI images pending Please note: Actual ECG tracings can be found in the PACS system.
== END ==
PROVIDERS: PCP Internal Medicine; Visit Provider Specialist
DX: R07.89 Other chest pain (principal); I25.10 Atherosclerotic heart disease of native coronary artery without angina pectoris
CPT/HCPCS: 78452; 93017; A9502

== ENCOUNTER → 2021-03-23 07:42 | Outpatient (CLI) | payer MEDICARE, OTHER, SELFPAY ==
[2021-03-23 09:00] LABS: Thyroid Stimulating Hormone 0.699 uIU/mL (0.47-4.68)
[2021-03-23 09:02] LABS: Alanine Aminotransferase 18 IU/L (<50); Albumin Globulin Ratio 1.3 (1.0-2.8); Alkaline Phosphatase 48 U/L (38-126); Aspartate Aminotransferase 28 IU/L (17-59); BUN Creatinine Ratio 18.6 (6-22); Bilirubin Total 0.6 mg/dL (0.2-1.3); Blood Urea Nitrogen 11 mg/dL (9-20); Calcium 8.9 mg/dL (8.4-10.2); Carbon Dioxide 23 mmol/L (22-32); Chloride 108 mmol/L (98-107); Cholesterol 100 mg/dL (140-199); Estimated Glomerular Filt Rate > 60.0 mL/min (>60); Glucose 103 mg/dL (80-110); HDL Cholesterol 39 mg/dL (40-60); HEMOLYSIS 22 (0-50); LDL Cholesterol Calculated 47 mg/dL (<100); Potassium 4.1 mmol/L (3.4-5.1); Sodium 139 mmol/L (137-145); Triglycerides 71 mg/dL (35-150)
== END ==
PROVIDERS: PCP Internal Medicine; Referring Provider Specialist; Visit Provider Specialist
DX: E78.00 Pure hypercholesterolemia, unspecified (principal)
CPT/HCPCS: 36415; 80053; 80061; 84443

== ENCOUNTER → 2021-04-10 09:12 | Outpatient (CLI) | payer MEDICARE, OTHER, SELFPAY ==
--- NOTE | 2021-04-10 | DI.CT.S_ITS ---
PROCEDURE: CT HEAD/BRAIN WO CON INDICATIONS: Headache, unspecified TECHNIQUE: Noncontrast 4.5 mm thick angled axial sections acquired from the foramen magnum to the vertex, with coronal and sagittal reformats. For radiation dose reduction, the following was used: automated exposure control, adjustment of mA and/or kV according to patient size. COMPARISON: [facility], CT, CT HEAD/BRAIN WO CON, 02/18/2020, 10:08. [facility], CT, CT HEAD/BRAIN WO CON, 03/28/2020, 11:39. FINDINGS: Image quality: Excellent. CSF spaces: Basal cisterns are patent. No extra-axial fluid collections. The ventricles are symmetric in size and shape. Brain: No intracranial bleeds or masses. There is cerebral volume loss for age, with resultant ventricular and sulcal prominence. There are periventricular and deep white matter chronic small vessel ischemic changes. There is intracranial internal carotid artery atherosclerosis. Skull and face: Bilateral crystal holes can be seen. Calvarium and visualized facial bones appear intact, without suspicious lesions. Sinuses: Visualized sinuses and mastoids are clear. IMPRESSION: No acute intracranial hemorrhage is seen. No acute intracranial process is seen. 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 Dictated by: Kilo Enciso M.D. on 04/10/2021 at 8:35 Approved by: Kilo Enciso M.D. on 04/10/2021 at 8:36
== END ==
PROVIDERS: PCP Internal Medicine; Referring Provider Internal Medicine; Visit Provider Internal Medicine
DX: R51.9 Headache, unspecified (principal); I65.29 Occlusion and stenosis of unspecified carotid artery
CPT/HCPCS: 70450

== ENCOUNTER → 2021-11-03 07:52 | Outpatient (CLI) | payer MEDICARE, OTHER, SELFPAY ==
--- NOTE | 2021-11-03 | DI.ECHO.S_ITS ---
[facility]---------+ [facility] +---------+ : : [address] : : : : [id number] : : : : Phone: [phone]+ Echocardiogram Report + + :Name: DARIAN LERNER Study Date: 11/03/2021 Height: 74 in : :[facility] ReadingLocation: Weight: 208 lb : : Gender: Male BSA: 2.2 m2 : :: 1935 Age: 86 yrs BP: 130/80 mmHg: :Reason For Study: SYNCOPE AND COLLAPSE : :Ordering Physician: ANKITA, : :MILAGROS Performed By: Savana Valenzuela : :Referring: MILAGROS LUCIANO : + + Interpretation Summary Left ventricular systolic function appears normal with an estimated ejection fraction of 55 to 60% although with possible mild hypokinesis in the proximal and mid posterior wall, extending into the proximal inferior wall, although this finding is nonspecific because of the subtlety. There are no other focal wall motion abnormalities. Left ventricular size is normal with borderline concentric LVH. Diastolic function is somewhat challenging to assess because of summation of the E and A waves but there is no evidence for any significant diastolic dysfunction or elevated filling pressures. The right ventricle appears normal in size and systolic function. Right ventricular systolic pressure cannot be estimated but the CVP is likely around 3 mmHg. The left atrium is mildly enlarged while right atrial size is normal. The cardiac valves appear anatomically normal without any significant functional valvular abnormality. Procedure: A two-dimensional transthoracic echocardiogram with color flow and Doppler was performed. The study quality was technically adequate. There is no prior echocardiogram noted for this patient. The heart rate ranged between 68-86 bpm during the study. Left Ventricle: The left ventricle is normal in size. There is borderline concentric left ventricular hypertrophy. There is mild proximal septal thickening noted. Overall left ventricular systolic function is preserved. The ejection fraction is estimated to be 55-60%. There is possible mild hypokinesis in the proximal and mid posterior wall, extending into the proximal inferior wall but this finding is somewhat nonspecific given the subtly. There are no other focal wall motion abnormalities. Diastolic parameters suggest probable normal left ventricular diastolic function and normal filling pressures. Right Ventricle: The right ventricle is normal in size and function. Atria: The left atrium is mildly dilated. Right atrial size is normal. The interatrial septum grossly appears intact with no obvious evidence for an atrial septal defect. There is no Doppler evidence for an interatrial shunt. Mitral Valve: The mitral valve is normal in structure and function. There is no mitral regurgitation noted. Aortic Valve: The aortic valve is trileaflet. The aortic valve opens well. There is no aortic valve stenosis. No aortic regurgitation is present. Tricuspid Valve: The tricuspid valve is normal in structure and function. There is trace tricuspid regurgitation. Pulmonary artery pressures cannot be estimated because of the lack of a measurable TR jet velocity but the IVC suggests a CVP of around 3 mmHg. Pulmonic Valve: The pulmonic valve leaflets are thin and pliable; valve motion is normal. There is trace pulmonic regurgitation. There is no significant valvular heart disease. Great Vessels: The aortic root is normal size. The ascending aorta is normal in size. The IVC is of normal diameter and collapses greater than 50% with a sniff. This suggests a low right atrial pressure of 3 mm Hg. Pericardium/ Pleura There is no pericardial effusion. There is no pleural effusion. MMode/2D Measurements & Calculations LVIDd: 4.7 cm LVOT diam: 2.2 cm LVIDs: 3.5 cm Ao root diam: 3.2 cm FS: 25.5 % asc Aorta Diam: 3.4 cm IVSd: 1.0 cm Ao Arch Diam (Prox Trans): 2.8 cm LVPWd: 1.1 cm LV tamayo. diameter/BSA (cm/m^2): 2.1 LV sys. diameter/BSA (cm/m^2): 1.6 LA A2 area: 23.7 cm2 RA long axis: 5.7 cm LA A4 area: 18.4 cm2 RA area: 17.2 cm2 LA length (vol): 4.7 cm RA vol: 44.2 ml LA vol: 78.1 ml RA : 20.0 ml/m2 LA vol index: 35.4 ml/m2 IVC diam: 1.3 cm RVD1 (basal): 3.3 cm RVD2 (mid): 3.0 cm TAPSE: 2.5 cm Doppler Measurements & Calculations Ao V2 max: 132.3 cm/sec LVOT Max Joey: 75.6 cm/sec Ao V2 mean: 94.8 cm/sec LV V1 max P.3 mmHg Ao max P.0 mmHg LV V1 VTI: 14.3 cm Ao mean P.0 mmHg OSCAR(I,D): 2.0 cm2 Ao V2 VTI: 26.9 cm OSCAR(V,D): 2.2 cm2 sev ratio: 0.53 OSCAR indexed to BSA (cm^2/m^2): 0.91 MV E max joey: 92.0 cm/sec TR max joey: 224.8 cm/sec Med Peak E' Joey: 13.3 cm/sec TR max P.2 mmHg E/E' med: 6.9 PA V2 max: 126.3 cm/sec Lat Peak E' Joey: 11.8 cm/sec PA V2 mean: 83.0 cm/sec E/E' lat: 7.8 PA mean P.2 mmHg E/e' average: 7.4 PA pr(Accel): 41.3 mmHg MV dec time: 0.09 sec SV(LVOT): 54.0 ml Reading Physician:09:47 AM
[2021-11-03 10:14] LABS: Alanine Aminotransferase 20 IU/L (<50); Albumin 4.2 g/dL (3.5-5.0); Albumin Globulin Ratio 1.4 (1.0-2.8); Alkaline Phosphatase 52 U/L (38-126); Aspartate Aminotransferase 27 IU/L (17-59); BUN Creatinine Ratio 19.4 (6-22); Bilirubin Total 0.4 mg/dL (0.2-1.3); Blood Urea Nitrogen 14 mg/dL (9-20); Calcium 8.6 mg/dL (8.4-10.2); Carbon Dioxide 26 mmol/L (22-32); Chloride 105 mmol/L (98-107); Estimated Glomerular Filt Rate > 60.0 mL/min (>60); Globulin 2.9 g/dL (1.7-4.1); Glucose 94 mg/dL (80-110); HEMOLYSIS < 15 (0-50); Potassium 4.2 mmol/L (3.4-5.1); Sodium 139 mmol/L (137-145); Total Protein 7.1 g/dL (6.3-8.2)
[2021-11-05 07:19] LABS: Cholesterol, Total 119 mg/dL (100-199); HDL-Cholesterol 44 mg/dL (>39); HDL-Particle (Total) 34.2 umol/L (>=30.5); LDL Particle 501 nmol/L (<1000); LDL Size 20.3 nm (>20.5); LDL-Cholsterol 57 mg/dL (0-99); LP-IR Score 44 (<=45); Small LDL- Particle 302 nmol/L (<=527); Triglycerides 95 mg/dL (0-149)
== END ==
PROVIDERS: PCP Internal Medicine; Referring Provider Physician Assistant Medical; Visit Provider Physician Assistant Medical
DX: I25.10 Atherosclerotic heart disease of native coronary artery without angina pectoris (principal); R07.89 Other chest pain; R53.82 Chronic fatigue, unspecified; R55 Syncope and collapse; R42 Dizziness and giddiness; E78.00 Pure hypercholesterolemia, unspecified
CPT/HCPCS: 36415; 80053; 80061; 83704; 93306

== ENCOUNTER → 2021-12-02 12:50 | Outpatient (CLI) | payer MEDICARE, OTHER, SELFPAY ==
[2021-12-02 13:53] LABS: Hematocrit 43.6 % (41-53); Hemoglobin 14.6 g/dL (13.5-17.5); Mean Corpuscular HGB Conc 33.6 % (30-36); Mean Corpuscular Hemoglobin 31.1 PG (26-34); Mean Corpuscular Volume 92.7 fL (80-100); Platelet Count 149 X10^3/uL (150-400); White Blood Cell Count 6.1 X10^3/uL (4.5-11.0)
[2021-12-02 14:52] LABS: TSH w/ Reflex to FT4 0.64 uIU/mL (0.47-4.68)
[2021-12-02 15:09] LABS: Vitamin B12 900 pg/mL (239-931)
[2021-12-04 12:07] LABS: Albumin 4.3 g/dL (2.9-4.4); Alpha-1-Globulin 0.3 g/dL (0.0-0.4); Alpha-2-Globulin 0.7 g/dL (0.4-1.0); Gamma Globulin 1.2 g/dL (0.4-1.8); Globulin Total 3.2 g/dL (2.2-3.9); Protein, Total 7.5 g/dL (6.0-8.5)
== END ==
PROVIDERS: PCP Internal Medicine; Referring Provider Internal Medicine; Visit Provider Internal Medicine
DX: E78.2 Mixed hyperlipidemia (principal); G60.9 Hereditary and idiopathic neuropathy, unspecified; G89.29 Other chronic pain; I10 Essential (primary) hypertension; I73.9 Peripheral vascular disease, unspecified; R51.9 Headache, unspecified; E53.8 Deficiency of other specified B group vitamins; R79.1 Abnormal coagulation profile; R94.6 Abnormal results of thyroid function studies
CPT/HCPCS: 36415; 82607; 84155; 84165; 84443; 85027

== ENCOUNTER 2022-01-07 10:35 | Outpatient (CLI) | payer MEDICARE, OTHER, SELFPAY ==
--- NOTE | 2022-01-07 10:38 | DI.RAD.S_ITS ---
PROCEDURE: XR LUMBAR SPINE MIN 4V INDICATIONS: BACK AND FEET PAIN TECHNIQUE: Five views of the lumbar spine were obtained COMPARISON: None. FINDINGS: Bones: 5 nonrib-bearing vertebrae are present. There is normal bony alignment. No vertebral body compression fractures. No suspicious bony lesions. Disc space narrowing and hypertrophic facet joints noted throughout the exam, particularly in the lower lumbar spine. Oblique images unremarkable. Soft tissues: Overlying bowel gas pattern is normal. Aortic atherosclerotic calcification noted. Moderate fecal debris in the right colon. IMPRESSION: Multilevel degenerative disc disease and arthropathy, particularly in the lower lumbar spine. Moderate fecal debris in the right colon. Approved by: Candido Cam M.D. on 01/07/2022 at 14:09
[2022-02-02] VITALS (8 sets, daily range): BP systolic 133–169; BP diastolic 64–85; PULSE 77–81; RESP 15–18; TEMP 35.6; O2SAT 97–100
== END 2022-02-02 15:20 | disposition home or self-care (01) ==
LOC: RAD 10:37
PROVIDERS: PCP Internal Medicine; Referring Provider Physical Medicine & Rehabilitation; Visit Provider Physical Medicine & Rehabilitation
DX: M51.36 Other intervertebral disc degeneration, lumbar region (principal); M47.816 Spondylosis without myelopathy or radiculopathy, lumbar region; M54.9 Dorsalgia, unspecified; M79.671 Pain in right foot; M79.672 Pain in left foot
CPT/HCPCS: 72110

== ENCOUNTER → 2022-01-18 09:01 | Outpatient (CLI) | payer MEDICARE, OTHER, SELFPAY ==
--- NOTE | 2022-01-18 09:04 | DI.MRI.S_ITS ---
PROCEDURE: MR LUMBAR SPINE WO CON INDICATIONS: Low back pain left greater than right lower extremity sympto TECHNIQUE: Noncontrast sagittal T1 spin echo and T2 fast echo, sagittal STIR, and T2 fast spin echo through the lumbar spine. In cases with scoliosis, additional coronal T2 fast spin echo may be performed. COMPARISON: [facility], , L-SPINE WITHOUT CONTRAST, 04/24/2010, 17:19. FINDINGS: Image quality: Excellent. Alignment and Curvature: There is 1-2 mm retrolisthesis of L2 on L3, L3 on L4, L5 on S1, 2 mm retrolisthesis of L4 on L5. Bone Marrow: Marrow is of normal overall signal. Mild reactive endplate changes are present at L1-2, L2-3, L3-4, L4-5 and L5-S1. Schmorl's nodes are noted along the inferior endplate of L1. No acute vertebral body compression fractures. Spinal Cord: Conus medullaris terminates at the L1 level. Visualized cord demonstrates normal signal and size. Paraspinous Soft Tissues: No paravertebral masses. Partially visualized T2 hyperintensity is noted in the inferior pole the left kidney likely cyst and unchanged. Discs: Lvbx-ev-qnrjipqg desiccation is present throughout the lumbar spine, moderate to severe at L4-5. L1-L2: Minimal disc bulge without spinal stenosis or foraminal narrowing. Facet and ligamentum flavum hypertrophy are present. Minimal interval progression. L2-L3: Mild disc bulge with mild spinal stenosis. No foraminal narrowing. Facet and ligamentum flavum hypertrophy are present, slightly progressive compared to prior exam. L3-L4: Mild disc bulge with moderate to severe spinal stenosis, progressive compared to prior exam. Epidural lipomatosis is present. Tnrk-vi-wwqgxgoh bilateral foraminal narrowing, slightly progressive. L4-L5: Right L4 hemilaminectomy. No disc bulge. No spinal stenosis. Jlax-jv-afvuldrq bilateral foraminal narrowing, stable compared to prior exam. Facet hypertrophy is present. L5-S1: Mild disc bulge including a right lateral/foraminal component. Posterior central protrusion is present, overall unchanged. Severe bilateral foraminal narrowing with flattening of the exiting nerve roots most notable on the right relatively unchanged. Facet hypertrophy is present. IMPRESSION: Multilevel degenerative changes with areas of interval progression as above. Spinal stenosis is most severe at L3-4 secondary to disc bulge with contributing effect of facet/ligamentum flavum arthropathy as well as epidural lipomatosis. Multilevel foraminal narrowing most severe at L5-S1 with slight compression of the exiting L5 nerve roots most notably on the right. Dictated by: Andree Kidd M.D. on 01/18/2022 at 14:16 Approved by: Andree Kidd M.D. on 01/18/2022 at 15:02
== END ==
PROVIDERS: PCP Internal Medicine; Referring Provider Physical Medicine & Rehabilitation; Visit Provider Physical Medicine & Rehabilitation
DX: M48.061 Spinal stenosis, lumbar region without neurogenic claudication (principal); M48.07 Spinal stenosis, lumbosacral region; M47.816 Spondylosis without myelopathy or radiculopathy, lumbar region; M47.817 Spondylosis without myelopathy or radiculopathy, lumbosacral region; M51.26 Other intervertebral disc displacement, lumbar region; Z98.890 Other specified postprocedural states
CPT/HCPCS: 72148

== ENCOUNTER → 2022-02-01 10:40 | Outpatient (CLI) | payer MEDICARE, OTHER, SELFPAY ==
[2022-02-01 13:51] LABS: COVID19 -Nasal RAPID Negative (Negative)
== END ==
PROVIDERS: PCP Internal Medicine; Visit Provider Physical Medicine & Rehabilitation
DX: Z20.822 Contact with and (suspected) exposure to COVID-19 (principal)
CPT/HCPCS: 87635; C9803

== ENCOUNTER 2022-02-02 13:00 | Outpatient (CLI) | payer MEDICARE, OTHER, SELFPAY ==
[2022-02-02] VITALS (9 sets, daily range): BP systolic 133–169; BP diastolic 64–88; PULSE 77–82; RESP 14–18; TEMP 35.6; O2SAT 96–100
--- NOTE | 2022-02-02 13:01 | DI.RAD.S_ITS ---
PROCEDURE: PAIN L/S TRANSFORAMINAL INJECT INDICATIONS: SPONDYLOSIS COMPARISON: None. FINDINGS: Fluoroscopic spot filming was performed to verify placement of spinal needles at the left L5-S1 neural foramen level(s), as labeled on the films. Appropriate location(s) of the needle tip(s) was confirmed by injection of iodinated contrast. IMPRESSION: Access needle at the left L5-S1 neural foramen for transforaminal epidural steroid injection. Dictated by: Nkechi Frey MD, PhD on 02/02/2022 at 16:35 Approved by: Nkechi Frey MD, PhD on 02/02/2022 at 16:36
[2022-02-02] MEDS: MIDAZOLAM 2 MG/2 ML VIAL IV (14:26)
[2022-02-02] MEDS: BETAMETHASONE 30 MG/5 ML MDV 6 MG INJ (14:30)
[2022-02-02] MEDS: IOPAMIDOL 15 ML VIAL 3 ML INJ (14:30)
[2022-02-02] MEDS: DEXAMETHASONE 10 MG/ML VIAL 20 MG INJ (14:30)
[2022-02-02] MEDS: BUPIVACAINE 0.25% (PF) VIAL 2 ML INJ (14:30)
--- NOTE | 2022-02-02 14:57 | P.PCN_ITS ---
Date/Time/Diagnoses Date of procedure: 02/02/22 Time of procedure: 14:57 Pre-procedure diagnosis: 1. FORAMINAL STENOSIS WITH LE SYMPTOMS Post-procedure diagnosis: same Procedure Notes Procedure: 1. FLUOROSCOPICALLY GUIDED CONTRAST CONTROLLED TRANSFORAMINAL EPIDURAL STEROID INJECTION - Left L5/S1 Indications: Ar is referred by Dr. Segal for treatment of Foraminal Stenosis with Left LE Symptoms Physician: Stan Renteria Total Fluoroscopy time (seconds): 21 Total sedation minutes: 21 Complications: none Procedure in detail & Post-procedure care: FINDINGS Foraminal Nerve Root Compression secondary to disc disease and facet hypertrophy DESCRIPTION OF PROCEDURE Following review of allergy and review of potential side effects and complications, including, but not necessarily limited to, infection, allergic reaction, local tissue breakdown, stroke, temporary or permanent nerve injury, paralysis, and possible , the patient indicated that the patient understood and agreed to proceed. An informed consent document was signed by the patient, witnessed by a nurse, and placed in the patient's chart. Additionally, other treatment options including medications, modalities, and physical therapy were reviewed with the patient. After review of previous anaesthesic history and IV conscious sedation the patient was deemed safe to proceed with today?s procedure with IV conscious sedation as ASA class II designation. Safety time-out was performed to confirm patient ID, procedure to be performed and site of procedure. IV sedation was accomplished with a combination of 2mg of Versed was administered by the RN after DO order, titrated to patient comfort during the course of the procedure while the patient remained responsive to all verbal commands In the prone position following sterile prep and drape of the lumbar region, the Left L5/S1 posterior neuroforamen was identified fluoroscopically. The skin was anesthetized via a 25-gauge 1.5-inch needle with 1% lidocaine solution. At this point, a 25-gauge 3.5-inch spinal needle was atraumatically introduced and advanced under fluoroscopic guidance through the posterior Left L5/S1 neuroforamen to approximately the anterior aspect of the canal. Depth was confirmed on lateral view. Following negative aspiration, injection of approximately 1.5 cc of Isovue 200 under live fluoroscopy in the AP view confirmed excellent flow along the nerve root, into the epidural space without vascular or intrathecal uptake observed Radiological data, including multiple fluoroscopic views of the lumbosacral spine, reveal a spinal needle at the Left L5/S1 posterior neuroforamen. Subsequent views show flow of contrast material flowing superiorly and inferiorly along the nerve root confirming epidural flow. Subsequently, a test dose of 1.5 cc of 1% lidocaine solution was administered and patient was observed for two minutes for signs or symptoms of complications, including abdominal pain, shortness of breath, bilateral upper or lower extremity weakness, nausea and vomiting, prior to steroid injection. At this point, a total of 3cc or 20mg of dexamethasone and 6mg of betamethasone was injected without incident. The procedure tolerated the procedure well without signs or symptoms of complications prior to transfer to the recovery area continued monitoring without incident. The patient was then transferred to the recovery area where they were observed for an appropriate time after the injection. The patient reported a VAS score of 7 prior to the procedure and a post-procedure VAS of 0. POST OP INSTRUCTIONS The patient was provided a Pain Log to continue to record their response to the target-specific procedure prior to follow-up visit with their referring physici an. Additionally, specific post-injection care instructions and a contact number to our office were provided if concerns arise regarding possible complications associated with the procedure are suspected.
== END 2022-02-02 15:06 | disposition home or self-care (01) ==
LOC: RAD 13:00
PROVIDERS: PCP Internal Medicine; Referring Provider Physical Medicine & Rehabilitation; Visit Provider Physical Medicine & Rehabilitation
DX: M48.07 Spinal stenosis, lumbosacral region (principal); M51.17 Intervertebral disc disorders with radiculopathy, lumbosacral region
CPT/HCPCS: 64483; 99152; J0702; J1100; J2250

== ENCOUNTER → 2022-05-04 08:13 | Outpatient (CLI) | payer MEDICARE, OTHER, SELFPAY ==
[2022-05-04 09:48] LABS: Alanine Aminotransferase 17 IU/L (<50); Albumin 4.2 g/dL (3.5-5.0); Albumin Globulin Ratio 1.4 (1.0-2.8); Alkaline Phosphatase 53 U/L (38-126); Aspartate Aminotransferase 25 IU/L (17-59); BUN Creatinine Ratio 14.1 (6-22); Bilirubin Total 0.7 mg/dL (0.2-1.3); Blood Urea Nitrogen 10 mg/dL (9-20); Calcium 8.6 mg/dL (8.4-10.2); Carbon Dioxide 30 mmol/L (22-32); Chloride 103 mmol/L (98-107); Cholesterol 113 mg/dL (140-199); Estimated Glomerular Filt Rate > 60 mL/min (>60); Glucose 95 mg/dL (80-110); HDL Cholesterol 37 mg/dL (40-60); HEMOLYSIS < 15 (0-50); LDL Cholesterol Calculated 56 mg/dL (<100); Sodium 140 mmol/L (137-145); Total Protein 7.2 g/dL (6.3-8.2); Triglycerides 99 mg/dL (35-150)
== END ==
PROVIDERS: PCP Internal Medicine; Referring Provider Specialist; Visit Provider Specialist
DX: E78.2 Mixed hyperlipidemia (principal)
CPT/HCPCS: 36415; 80053; 80061

== ENCOUNTER → 2022-07-05 15:32 | Outpatient (CLI) | payer MEDICARE, OTHER, SELFPAY ==
[2022-07-05 15:57] LABS: Appearance Urine UA CLEAR; Bilirubin Urine UA NEGATIVE (NEGATIVE); Color Urine UA YELLOW; Glucose Urine UA NEGATIVE (Negative); Ketones Urine UA NEGATIVE (NEGATIVE); Leukocyte Esterase Urine UA NEGATIVE (NEGATIVE); Nitrite Urine UA NEGATIVE (Negative); Occult Blood Urine UA NEGATIVE (Negative); Protein Urine UA NEGATIVE (Negative); Urobilinogen Urine UA 0.2 E.U./dL (0.2)
[2022-07-05 16:13] LABS: Bacteria Urine None Seen; Culture Indicated Urine Cult Not Indicated; RBC Urine 0-1/HPF (0-5/HPF); Squamous Epithelial Cell Urine 0-1 /HPF (0-5/HPF); WBC Urine 0-1/HPF (0-5/HPF)
== END ==
PROVIDERS: PCP Internal Medicine; Referring Provider Internal Medicine; Visit Provider Internal Medicine
DX: R30.0 Dysuria (principal)
CPT/HCPCS: 81001

== ENCOUNTER 2022-07-26 13:37 | Observation (INO) | payer MEDICARE, OTHER, SELFPAY ==
[2022-07-26] VITALS (54 sets, daily range): BP systolic 98–171; BP diastolic 54–114; PULSE 105–139; RESP 16–45; TEMP 37.8; O2SAT 94–99; BMI 26.3
--- NOTE | 2022-07-26 13:53 | DI.RAD.S_ITS ---
PROCEDURE: XR CHEST 1V INDICATIONS: suspected sepsis TECHNIQUE: One view of the chest was acquired. COMPARISON: [facility], , CHEST 1 VIEW, 01/02/2013, 12:53. FINDINGS: Surgical changes and devices: None. Lungs and pleura: Lungs are mildly hyperexpanded and clear. No pleural effusions or pneumothorax. Calcified granuloma is seen in the left lung. Mediastinum: Mediastinal contours appear normal. Heart size is normal. Calcified mediastinal and left hilar lymph nodes are noted, which appear stable and are most likely related to prior granulomatous disease. Bones and chest wall: No suspicious bony lesions. Overlying soft tissues appear unremarkable. IMPRESSION: No acute cardiopulmonary abnormality. Approved by: Zac Rice M.D. on 07/26/2022 at 14:49
[2022-07-26 14:41] LABS: INR 1.2 (0.9-1.3); Prothrombin Time 14.2 SECONDS (10.1-12.7)
[2022-07-26 14:42] LABS: Lactate (Lactic Acid) 2.4 mmol/L (0.7-2.1)
[2022-07-26 14:43] LABS: Alanine Aminotransferase 26 IU/L (<50); Albumin 4.3 g/dL (3.5-5.0); Albumin Globulin Ratio 1.2 (1.0-2.8); Alkaline Phosphatase 69 U/L (38-126); Aspartate Aminotransferase 43 IU/L (17-59); BUN Creatinine Ratio 13.7 (6-22); Bilirubin Total 0.8 mg/dL (0.2-1.3); Blood Urea Nitrogen 13 mg/dL (9-20); Calcium 8.1 mg/dL (8.4-10.2); Carbon Dioxide 22 mmol/L (22-32); Chloride 98 mmol/L (98-107); Estimated Glomerular Filt Rate > 60 mL/min (>60); Globulin 3.6 g/dL (1.7-4.1); Glucose 122 mg/dL (80-110); HEMOLYSIS < 15 (0-50); Lipase 104 U/L (23-300); PTT Partial Thromboplastin Tim 30 SECONDS (26-36); Potassium 3.5 mmol/L (3.4-5.1); Sodium 134 mmol/L (137-145); Total Protein 7.9 g/dL (6.3-8.2)
[2022-07-26 14:45] LABS: Add Manual Diff / Slide Review NO; Basophils Absolute Auto 0 /uL (0-100); Basophils Percent Auto 0.6 % (0-2); Eosinophils Absolute Auto 0 /uL (0-450); Eosinophils Percent Auto 0.1 % (2-4); Hematocrit 41.9 % (41-53); Hemoglobin 13.9 g/dL (13.5-17.5); Lymphocytes Absolute Auto 600 /uL (1100-4500); Lymphocytes Percent Auto 14.6 % (25-40); Mean Corpuscular HGB Conc 33.2 % (30-36); Mean Corpuscular Volume 93.2 fL (80-100); Monocytes Absolute Auto 800 /uL (0-900); Monocytes Percent Auto 19.8 % (3-14); Neutrophils Absolute Auto 2700 /uL (1500-7000); Neutrophils Percent Auto 64.9 % (50-75); Platelet Count 113 X10^3/uL (150-400); Red Blood Cell Count 4.49 X10^6/uL (4.5-5.9); Red Cell Distribution Width 12.8 % (11.6-14.8); White Blood Cell Count 4.2 X10^3/uL (4.5-11.0)
[2022-07-26 14:50] LABS: COVID-19 CEPHEID 4-PLEX PCR Negative (Negative); Influenza A - CEPHEID Flu A POSITIVE (NEGATIVE); Influenza B - CEPHEID Flu B NEGATIVE (NEGATIVE); Respiratory Syncytial Virus Negative (Negative)
[2022-07-26 14:59] LABS: Procalcitonin 0.15 ng/mL (<0.5)
--- NOTE | 2022-07-26 15:43 | ED.ARRPALP ---
HPI - Arrhythmia/Palpitations General Chief Complaint: Arrhythmia/Palpitations Stated Complaint: SOB, Weak legs Time Seen by Provider: 07/26/22 14:09 Source: patient Mode of arrival: Ambulatory History of Present Illness HPI narrative: Patient is an 87-year-old male with history of coronary artery disease, hypertension, subdural hematoma, who presents here with his ,. Both of them have been ill he is low-grade temperature now. He actually started not feeling well his heart rate jumped into the 140s looked to be atrial fibrillation. He has no prior history of atrial fibrillation. He says he generally does not feel well body aches fever chills cough denies any really chest pain.Minimal headache. Related Data Home Medications Medication Instructions Recorded Confirmed ascorbic acid (vitamin C) 1,000 mg 1,000 mg PO DAILY ##0 01/10/13 07/05/22 tablet (Vitamin C) multivitamin 1 tab PO DAILY ##0 01/10/13 07/05/22 omega 0-iyi-yha-fish oil 1,200 mg 1 cap PO BID ##0 01/10/13 07/05/22 (144 mg-216 mg) capsule (Fish Oil) aspirin 81 mg tablet,delayed 81 mg PO DAILY ##0 03/12/13 07/05/22 release losartan 50 mg tablet 50 mg PO BID ##0 03/12/13 07/05/22 diphenhydramine 25 1 tab PO BEDTIME 09/14/18 07/05/22 mg-acetaminophen 500 mg tablet (Tylenol PM Extra Strength) ipratropium bromide 21 mcg (0.03 2 spray intranasal BID-TID PRN 09/14/18 07/05/22 %) nasal spray seasonal allergies cholecalciferol (vitamin D3) 25 25 mcg PO DAILY 03/25/20 07/05/22 mcg (1,000 unit) tablet (Vitamin D3) metoprolol tartrate 50 mg tablet 50 mg PO DAILY 12/02/21 07/05/22 alpha lipoic acid 300 mg capsule 600 mg PO DAILY 06/16/22 07/05/22 Previous Rx's Medication Instructions Recorded atorvastatin 40 mg tablet (Lipitor) 40 mg PO HS ##30 02/02/13 fluticasone propionate 50 2 spray intranasal DAILY PRN 01/12/22 mcg/actuation nasal Seasonal Allergies #16 grams spray,suspension nortriptyline 25 mg capsule 25 mg PO DAILY #90 caps 03/05/22 duloxetine 20 mg capsule,delayed 60 mg PO DAILY #270 caps 06/16/22 release sulfamethoxazole 800 1 tab PO BID #20 tabs 07/05/22 mg-trimethoprim 160 mg tablet Allergies Allergy/AdvReac Type Severity Reaction Status Date / Time No Known Drug Allergies Allergy Verified 07/26/22 13:43 Review of Systems Review of Systems Narrative: GENERAL: Denies chills, fatigue, malaise, fever, sweats, travel HEENT: Denies sinus pain, ear pain, sore throat, difficulty swallowing, neck pain RESPIRATORY: Denies dyspnea, cough, wheezing, hemoptysis, sputum. CARDIOVASCULAR: See HPI GASTROINTESTINAL: Denies nausea, vomiting, abdominal pain, diarrhea, constipation, melena. : Denies dysuria, frequency, incontinence, hematuria, urinary retention, flank pain. MUSCULOSKELETAL: Denies weakness, joint pain, or bony pain SKIN: No rash, no erythema, no pruritus NEUROLOGIC: Denies weakness, dizziness, headache, numbness, change in speech, confusion PSYCHIATRIC: No concerning psychosocial issues. 12 point review of systems is negative except for those stated above and HPI Patient History Medical History (Updated 07/26/22 @ 19:23 by Basilia Milner DO) Arthritis Chronic headache Coronary artery disease Do not resuscitate Essential hypertension Facet arthropathy, lumbar History of heart attack Idiopathic polyneuropathy Lumbar stenosis Medicare annual wellness visit, initial Menieres disease Mixed hyperlipidemia Subdural hematoma, acute (~02/19/20) Surgical History History of lumbar laminectomy Stented coronary artery (~2012) Family History Father Cancer Brother Cancer Hypertension Social History household members: spouse Smoking Status: Never smoker alcohol intake: former Smoking Status: Never smoker alcohol intake frequency: 0-2 drinks per day Substance Use Type: marijuana Exam Initial Vital Signs Initial Vital Signs: Vital Signs Temperature 100.1 F H 07/26/22 13:43 Pulse Rate 139 H 07/26/22 13:43 Respiratory Rate 19 07/26/22 13:43 Blood Pressure 111/63 07/26/22 13:43 Pulse Oximetry 98 07/26/22 13:43 Oxygen Delivery Method 07/26/22 13:43 GENERAL: Alert pleasant week 87-year-old HEENT: Head atraumatic,EOMI, pupils reactive, face symmetric, moist mucous membranes CARDIOVASCULAR: Irregularly irregular tachycardic no murmur RESPIRATORY: Breath sounds equal bilaterally, no wheezes rales or rhonchi. ABDOMEN: Soft, nontender. Normoactive bowel sounds all 4 quadrants. No guarding or rebound. EXTREMITIES: Normal range of motion, no clubbing or edema. Neurovascularly intact NEUROLOGICAL: Alert and oriented x4. 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 Course Orders Ordered: ED Orders 07/26/22 13:53 XR chest 1V Stat EKG-12 Lead Stat RT Consult Eval and Treat NOW 07/26/22 13:57 Covid-19 + FLU A/B + RSV - PCR Stat 07/26/22 14:10 Complete Blood Count AUTO DIFF Stat Comprehensive Metabolic Panel Stat Lactate (Lactic Acid) Stat Lipase Stat Partial Thromboplastin Time Stat Procalcitonin Stat Prothrombin Time INR Stat Troponin & CK Cardiac Panel Stat 07/26/22 14:39 Blood Culture Stat 07/26/22 17:05 Troponin & CK Cardiac Panel Stat Sodium Chloride (Normal Saline 0.9%) 1,000 mls @ 150 mls/hr IV CONT MENDY Last Admin: 07/26/22 17:17 Dose: 150 mls/hr Documented By: PREETI Discontinued Medications Diltiazem HCl (Diltiazem 5 Mg/Ml Sdv) 10 mg IV NOW ONE Stop: 07/26/22 15:45 Last Admin: 07/26/22 16:04 Dose: 10 mg Documented By: AT Sodium Chloride (Normal Saline 0.9%) 1,000 mls @ 1,000 mls/hr IV BOLUS ONE Stop: 07/26/22 16:26 Last Infusion: 07/26/22 17:06 Dose: 0 mls/hr Documented By: Admin: 07/26/22 16:04 Dose: 1,000 mls/hr Documented By: AT Metoprolol Tartrate (Metoprolol Tartrate 5 Mg/5 Ml Inj) 5 mg IV NOW ONE Stop: 07/26/22 17:01 Last Admin: 07/26/22 17:17 Dose: 5 mg Documented By: PREETI Metoprolol Tartrate (Metoprolol Ir 25 Mg Tablet) 25 mg PO NOW ONE Stop: 07/26/22 17:21 Last Admin: 07/26/22 17:44 Dose: 25 mg Documented By: AT Vital Signs Vital signs: Vital Signs - 8 hr 07/26/22 13:43 07/26/22 14:21 07/26/22 14:21 Temperature 100.1 F H Pulse Rate 139 H 134 H Respiratory Rate 19 20 Blood Pressure 111/63 121/58 L Pulse Oximetry 98 96 Oxygen Delivery Method Room Air Room Air 07/26/22 14:30 07/26/22 14:30 07/26/22 14:45 Temperature Pulse Rate 137 H Respiratory Rate 16 Blood Pressure 98/54 L 132/60 Pulse Oximetry 95 Oxygen Delivery Method Room Air 07/26/22 14:45 07/26/22 15:00 07/26/22 15:00 Temperature Pulse Rate 129 H 129 H Respiratory Rate 30 H 29 H Blood Pressure 135/62 Pulse Oximetry 95 95 Oxygen Delivery Method 07/26/22 15:15 07/26/22 15:15 07/26/22 15:30 Temperature Pulse Rate 132 H Respiratory Rate 20 Blood Pressure 124/62 114/63 Pulse Oximetry 95 Oxygen Delivery Method Room Air 07/26/22 15:30 07/26/22 15:45 07/26/22 15:45 Temperature Pulse Rate 132 H 129 H Respiratory Rate 26 H 25 H Blood Pressure 132/62 Pulse Oximetry 96 95 Oxygen Delivery Method Room Air Room Air 07/26/22 16:04 07/26/22 16:00 07/26/22 16:00 Temperature Pulse Rate 125 H 127 H Respiratory Rate 26 H Blood Pressure 121/65 121/65 Pulse Oximetry 98 Oxygen Delivery Method 07/26/22 16:10 07/26/22 16:10 07/26/22 16:15 Temperature Pulse Rate 124 H Respiratory Rate 28 H Blood Pressure 135/64 145/67 H Pulse Oximetry 97 Oxygen Delivery Method 07/26/22 16:15 07/26/22 16:20 07/26/22 16:20 Temperature Pulse Rate 123 H 122 H Respiratory Rate 28 H 26 H Blood Pressure 145/70 H Pulse Oximetry 98 97 Oxygen Delivery Method 07/26/22 16:25 07/26/22 16:25 07/26/22 16:30 Temperature Pulse Rate 119 H Respiratory Rate 24 Blood Pressure 141/67 H 141/65 H Pulse Oximetry 96 Oxygen Delivery Method 07/26/22 16:30 07/26/22 16:35 07/26/22 16:35 Temperature Pulse Rate 122 H 123 H Respiratory Rate 30 H 28 H Blood Pressure 127/67 Pulse Oximetry 97 97 Oxygen Delivery Method 07/26/22 16:40 07/26/22 16:40 07/26/22 16:45 Temperature Pulse Rate 124 H Respiratory Rate 24 Blood Pressure 139/63 145/67 H Pulse Oximetry 96 Oxygen Delivery Method 07/26/22 16:45 07/26/22 16:50 07/26/22 16:50 Temperature Pulse Rate 124 H 124 H Respiratory Rate 28 H 30 H Blood Pressure 146/63 H Pulse Oximetry 98 97 Oxygen Delivery Method 07/26/22 16:55 07/26/22 16:55 07/26/22 17:00 Temperature Pulse Rate 127 H Respiratory Rate 24 Blood Pressure 155/74 H 144/68 H Pulse Oximetry 99 Oxygen Delivery Method 07/26/22 17:00 07/26/22 17:05 07/26/22 17:05 Temperature Pulse Rate 126 H 126 H Respiratory Rate 31 H 23 Blood Pressure 145/63 H Pulse Oximetry 98 98 Oxygen Delivery Method 07/26/22 17:10 07/26/22 17:10 07/26/22 17:15 Temperature Pulse Rate 127 H Respiratory Rate 30 H Blood Pressure 154/65 H 142/58 H Pulse Oximetry 97 Oxygen Delivery Method 07/26/22 17:15 07/26/22 17:20 07/26/22 17:20 Temperature Pulse Rate 126 H 124 H Respiratory Rate 28 H 22 Blood Pressure 147/65 H Pulse Oximetry 99 97 Oxygen Delivery Method Room Air Room Air 07/26/22 17:25 07/26/22 17:25 07/26/22 17:30 Temperature Pulse Rate 119 H Respiratory Rate 24 Blood Pressure 136/62 144/69 H Pulse Oximetry 96 Oxygen Delivery Method Room Air 07/26/22 17:30 07/26/22 17:36 07/26/22 17:36 Temperature Pulse Rate 115 H 118 H Respiratory Rate 20 22 Blood Pressure 141/93 H Pulse Oximetry 98 98 Oxygen Delivery Method Room Air Room Air 07/26/22 17:40 07/26/22 17:40 07/26/22 17:45 Temperature Pulse Rate 118 H Respiratory Rate 20 Blood Pressure 140/74 114/62 Pulse Oximetry 95 Oxygen Delivery Method Room Air 07/26/22 17:45 Temperature Pulse Rate 118 H Respiratory Rate 20 Blood Pressure Pulse Oximetry 98 Oxygen Delivery Method Room Air MDM - Arrhythmia/Palpitations Lab Data Result diagrams: 07/26/22 14:10 07/26/22 14:10 Labs: Lab Results 07/26/22 07/26/22 07/26/22 Range/Units 13:57 14:10 14:10 WBC 4.2 L (4.5-11.0) X10^3/uL RBC 4.49 L (4.5-5.9) X10^6/uL Hgb 13.9 (13.5-17.5) g/dL Hct 41.9 (41-53) % MCV 93.2 (80-100) fL MCH 31.0 (26-34) PG MCHC 33.2 (30-36) % RDW 12.8 (11.6-14.8) % Plt Count 113 L (150-400) X10^3/uL Neut % (Auto) 64.9 (50-75) % Lymph % (Auto) 14.6 L (25-40) % Zapata % (Auto) 19.8 H (3-14) % Eos % (Auto) 0.1 L (2-4) % Baso % (Auto) 0.6 (0-2) % Neut # (Auto) 2700 (2914-9074) /uL Lymph # (Auto) 600 L (6219-4332) /uL [place] # (Auto) 800 (0-900) /uL Eos # (Auto) 0 (0-450) /uL Baso # (Auto) 0 (0-100) /uL PT 14.2 H (10.1-12.7) SECONDS INR 1.2 (0.9-1.3) APTT 30 (26-36) SECONDS Sodium (137-145) mmol/L Potassium (3.4-5.1) mmol/L Chloride (98-107) mmol/L Carbon Dioxide (22-32) mmol/L BUN (9-20) mg/dL Creatinine (0.66-1.25) mg/dL Estimated GFR (>60) mL/min BUN/Creatinine Ratio (6-22) Glucose (80-110) mg/dL Lactate (0.7-2.1) mmol/L Calcium (8.4-10.2) mg/dL Total Bilirubin (0.2-1.3) mg/dL AST (17-59) IU/L ALT (<50) IU/L Alkaline Phosphatase (38-126) U/L Total Creatine Kinase (55-170) U/L CK-MB (CK-2) (<2.37) ng/mL CK-MB (CK-2) Rel Index (1.5-5.0) % Troponin I (0.01-0.034) ng/mL Total Protein (6.3-8.2) g/dL Albumin (3.5-5.0) g/dL Globulin (1.7-4.1) g/dL Albumin/Globulin Ratio (1.0-2.8) Lipase (23-300) U/L Procalcitonin (<0.5) ng/mL SARS-CoV-2 (PCR) Negative (Negative) Influenza A (RT-PCR) Flu a positive H (NEGATIVE) Influenza B (RT-PCR) Flu b negative (NEGATIVE) RSV (PCR) Negative (Negative) 07/26/22 07/26/22 07/26/22 Range/Units 14:10 14:10 14:10 WBC (4.5-11.0) X10^3/uL RBC (4.5-5.9) X10^6/uL Hgb (13.5-17.5) g/dL Hct (41-53) % MCV (80-100) fL MCH (26-34) PG MCHC (30-36) % RDW (11.6-14.8) % Plt Count (150-400) X10^3/uL Neut % (Auto) (50-75) % Lymph % (Auto) (25-40) % Zapata % (Auto) (3-14) % Eos % (Auto) (2-4) % Baso % (Auto) (0-2) % Neut # (Auto) (6746-1990) /uL Lymph # (Auto) (1147-2850) /uL Zapata # (Auto) (0-900) /uL Eos # (Auto) (0-450) /uL Baso # (Auto) (0-100) /uL PT (10.1-12.7) SECONDS INR (0.9-1.3) APTT (26-36) SECONDS Sodium 134 L (137-145) mmol/L Potassium 3.5 (3.4-5.1) mmol/L Chloride 98 (98-107) mmol/L Carbon Dioxide 22 (22-32) mmol/L BUN 13 (9-20) mg/dL Creatinine 0.95 (0.66-1.25) mg/dL Estimated GFR > 60 (>60) mL/min BUN/Creatinine Ratio 13.7 (6-22) Glucose 122 H (80-110) mg/dL Lactate 2.4 H (0.7-2.1) mmol/L Calcium 8.1 L (8.4-10.2) mg/dL Total Bilirubin 0.8 (0.2-1.3) mg/dL AST 43 (17-59) IU/L ALT 26 (<50) IU/L Alkaline Phosphatase 69 (38-126) U/L Total Creatine Kinase 287 H (55-170) U/L CK-MB (CK-2) 3.44 H (<2.37) ng/mL CK-MB (CK-2) Rel Index 1.2 L (1.5-5.0) % Troponin I 0.058 H (0.01-0.034) ng/mL Total Protein 7.9 (6.3-8.2) g/dL Albumin 4.3 (3.5-5.0) g/dL Globulin 3.6 (1.7-4.1) g/dL Albumin/Globulin Ratio 1.2 (1.0-2.8) Lipase 104 (23-300) U/L Procalcitonin 0.15 (<0.5) ng/mL SARS-CoV-2 (PCR) (Negative) Influenza A (RT-PCR) (NEGATIVE) Influenza B (RT-PCR) (NEGATIVE) RSV (PCR) (Negative) 07/26/22 07/26/22 Range/Units 17:05 17:05 WBC (4.5-11.0) X10^3/uL RBC (4.5-5.9) X10^6/uL Hgb (13.5-17.5) g/dL Hct (41-53) % MCV (80-100) fL MCH (26-34) PG MCHC (30-36) % RDW (11.6-14.8) % Plt Count (150-400) X10^3/uL Neut % (Auto) (50-75) % Lymph % (Auto) (25-40) % [place] % (Auto) (3-14) % Eos % (Auto) (2-4) % Baso % (Auto) (0-2) % Neut # (Auto) (4971-5437) /uL Lymph # (Auto) (5893-6844) /uL [place] # (Auto) (0-900) /uL Eos # (Auto) (0-450) /uL Baso # (Auto) (0-100) /uL PT (10.1-12.7) SECONDS INR (0.9-1.3) APTT (26-36) SECONDS Sodium (137-145) mmol/L Potassium (3.4-5.1) mmol/L Chloride (98-107) mmol/L Carbon Dioxide (22-32) mmol/L BUN (9-20) mg/dL Creatinine (0.66-1.25) mg/dL Estimated GFR (>60) mL/min BUN/Creatinine Ratio (6-22) Glucose (80-110) mg/dL Lactate 1.0 (0.7-2.1) mmol/L Calcium (8.4-10.2) mg/dL Total Bilirubin (0.2-1.3) mg/dL AST (17-59) IU/L ALT (<50) IU/L Alkaline Phosphatase (38-126) U/L Total Creatine Kinase 266 H (55-170) U/L CK-MB (CK-2) 3.39 H (<2.37) ng/mL CK-MB (CK-2) Rel Index 1.3 L (1.5-5.0) % Troponin I 0.063 H (0.01-0.034) ng/mL Total Protein (6.3-8.2) g/dL Albumin (3.5-5.0) g/dL Globulin (1.7-4.1) g/dL Albumin/Globulin Ratio (1.0-2.8) Lipase (23-300) U/L Procalcitonin (<0.5) ng/mL SARS-CoV-2 (PCR) (Negative) Influenza A (RT-PCR) (NEGATIVE) Influenza B (RT-PCR) (NEGATIVE) RSV (PCR) (Negative) Imaging Data Chest x-ray: Radiologist's Impresson: t: Ar Ross MR#: [id number] : 1935 Acct:[id number] Age/Sex: 87 / M Date of Service: 07/26/22 Loc: ED Accession Number: [id number] ?? Procedure: XR chest 1V Ordering Provider: Basilia Milner D.O. PROCEDURE:? XR CHEST 1V ? INDICATIONS:? suspected sepsis ? TECHNIQUE:? One view of the chest was acquired.? ? COMPARISON:[facility], CHEST 1 VIEW, 01/02/2013, 12:53. ? FINDINGS:? ? Surgical changes and devices:? None.? ? Lungs and pleura:? Lungs are mildly hyperexpanded and clear.? No pleural effusions or pneumothorax.? Calcified granuloma is seen in the left lung. ? Mediastinum:? Mediastinal contours appear normal.? Heart size is normal.? Calcified mediastinal and left hilar lymph nodes are noted, which appear stable and are most likely related to prior granulomatous disease. ? Bones and chest wall:? No suspicious bony lesions.? Overlying soft tissues appear unremarkable.? ? IMPRESSION:? No acute cardiopulmonary abnormality. ? ? ? Approved by: Zac Rice M.D. on 07/26/20 ECG Data Interpretation: Atrial fibrillation rate [address] changes new from previous EKG in 2012 Probable atrial flutter with one-to-one heart rate 128 MDM Narrative Medical decision making narrative: Patient does have some infectious symptoms positive for influenza a low-grade fever mild elevated lactate of 2.4. He is not hypotensive. He has new onset AFib with RVR. He was given a dose of diltiazem 10 mg x 1 which did slow his heart rate down into the 120s. It is pretty consistently 122 her 123 suggestive of atrial flutter 1-1 block. But heart rate is significantly improved. This is new. He is not on any anticoagulation but does take metoprolol. He is not currently hypoxic from his influenza. Troponins are mildly indeterminate [phone] probably secondary to tachycardia. No significant ST changes unlikely to NM. Dr. Lopez, updated patient's symptoms test results agrees with pills for rate control and observation. Discharge Plan Departure Patient Disposition: Admitted as Observation Clinical Impression: Influenza A, Atrial fibrillation with rapid ventricular response Prescriptions: No Action multivitamin Tablet 1 tab PO DAILY Qty: 0 ascorbic acid (vitamin C) [Vitamin C] 1,000 mg Tablet 1,000 mg PO DAILY Qty: 0 omega 1-jiv-hjw-fish oil [Fish Oil] 1,200 (144-216) mg Capsule 1 cap PO BID Qty: 0 atorvastatin [Lipitor] 40 MG tablet 40 mg PO HS Qty: 30 2RF losartan 50 MG tablet 50 mg PO BID Qty: 0 aspirin 81 mg Tablet,Delayed Release (Dr/Ec) 81 mg PO DAILY Qty: 0 fluticasone propionate 50 mcg/actuation spray,suspension 2 spray NASAL DAILY PRN (Reason: Seasonal Allergies) Qty: 16 3RF nortriptyline 25 mg capsule 25 mg PO DAILY Qty: 90 1RF metoprolol tartrate 50 mg tablet 50 mg PO DAILY alpha lipoic acid 300 mg capsule 600 mg PO DAILY duloxetine 20 mg capsule,delayed release(DR/EC) 60 mg PO DAILY Qty: 270 3RF sulfamethoxazole-trimethoprim 800-160 mg tablet 1 tab PO BID Qty: 20 1RF cholecalciferol (vitamin D3) [Vitamin D3] 25 mcg (1,000 unit) Tablet 25 mcg PO DAILY ipratropium bromide 0.03 % spray,non-aerosol 2 spray NASAL BID-TID PRN (Reason: seasonal allergies) diphenhydramine-acetaminophen [Tylenol PM Extra Strength] 25-500 mg tablet 1 tab PO BEDTIME Referrals: Titi Segal MD [Primary Care Provider] -
[2022-07-26 15:47] LABS: Creatine Kinase 287 U/L (55-170)
[2022-07-26 16:00] LABS: Troponin I 0.058 ng/mL (0.01-0.034)
[2022-07-26 16:02] LABS: CKMB % Relative Index 1.2 % (1.5-5.0); Creatine Kinase MB 3.44 ng/mL (<2.37)
[2022-07-26] MEDS: dilTIAZem 5 MG/ML SDV 10 MG IV (16:04)
[2022-07-26] MEDS: SODIUM CHLORIDE 0.9% 1,000 ML 1000 ML IV (16:04)
[2022-07-26 16:25] LABS: Reflexed Lactate in 2 Hours Y
[2022-07-26] MEDS: SODIUM CHLORIDE 0.9% 1,000 ML 150 ML IV (17:17)
[2022-07-26] MEDS: METOPROLOL TARTRATE 5 MG/5 ML INJ IV (17:17)
[2022-07-26 17:43] LABS: Creatine Kinase 266 U/L (55-170)
[2022-07-26] MEDS: METOPROLOL IR 25 MG TABLET PO (17:44)
[2022-07-26 17:56] LABS: Troponin I 0.063 ng/mL (0.01-0.034)
[2022-07-26 18:44] LABS: CKMB % Relative Index 1.3 % (1.5-5.0); Creatine Kinase MB 3.39 ng/mL (<2.37)
[2022-07-26 20:39] LABS: Ethanol (ETOH) < 10 mg/dL; Magnesium 2.1 mg/dL (1.6-2.3)
[2022-07-26 20:48] LABS: NT-proBNP (BNP-Adult 18+) 197 pg/mL (<450)
[2022-07-26] MEDS: APIXABAN 5 MG TABLET PO (20:54)
[2022-07-26] MEDS: SENNOSIDES 8.6 MG TABLET 17.2 MG PO (20:54)
[2022-07-26 23:12] LABS: Troponin I 0.045 ng/mL (0.01-0.034)
[2022-07-27] VITALS (19 sets, daily range): BP systolic 127–161; BP diastolic 70–89; PULSE 75–120; RESP 17–29; TEMP 35.7–36.3; O2SAT 96–99; BMI 26.3
[2022-07-27] MEDS: SODIUM CHLORIDE 0.9% 1,000 ML 150 ML IV (00:03)
--- NOTE | 2022-07-27 00:16 | PM.HP.1 ---
History of Present Illness History of Present Illness Date Patient Seen: 07/26/22 Time Patient Seen: 20:11 Chief complaint: SOB, Weak legs Narrative: Ar Ross is a [place] 87 year old male with a past medical history of NV with 1 stent placement, CAD, essential hypertension, hyperlipidemia, chronic headache, major depressive disorder, peripheral neuropathy, chronic low back pain, and subdural hematoma who presented today via EMS -both he and his presented as patient's to the ED and have both been admitted. Patient states that for the past several days he has been running a low-grade fever, elevated heart rate up into the 140s, body aches, chills, fever. Cough, shortness of breath, headache, congestion, sore throat and progressive fatigue and weakness. 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 While in the ED patient patient found to be in AFib with RVR HR 120 to 140s, tachypneic RR 20-30, with low-grade fever 100.1 saturated well 98% on room air. Patient was given 10 mg of oral diltiazem, and oral metoprolol for rate control. Patient denies abdominal pain nausea, vomiting, diarrhea, constipation hematemesis, hematuria, melena, recent illness, injury, trauma, infections, changes to medication, weakness, numbness, tingling, recent falls. At the time of admit temp continues 100.1, tachycardic HR 139, BP 111/63, RR 19, O2 saturation 98% on room air. At the time of exam patient is no longer in AFib is resting comfortably but is frequently coughing unable to complete more than 3 or 4 words without shortness of breath slightly labored breathing audible congestion, and appears quite fatigued. WBC 4.2, platelets 113, sodium 134, glucose 122 patient is negative for RSV COVID and influenza B. patient is positive for influenza A. Patient's lactate 2.4, repeat is 1.0, T CK 287, CK-2: 3.44, initial troponin 0.058, repeat 0.063, patient's EKG atrial fibrillation with a rate of [address] or T-wave changes I personally reviewed and is unchanged since EKG in 2013. Patient's checks x-ray is negative for any acute cardiopulmonary process. Patient admitted for atrial fibrillation with RVR new onset, and influenza a. Patient was able to be cardioverted and rate stabilization with oral medication at this time in the ED. Patient History Medical History Arthritis Chronic headache Coronary artery disease Do not resuscitate Essential hypertension Facet arthropathy, lumbar History of heart attack Idiopathic polyneuropathy Lumbar stenosis Medicare annual wellness visit, initial Menieres disease Mixed hyperlipidemia Subdural hematoma, acute (~02/19/20) Surgical History History of lumbar laminectomy Stented coronary artery (~2012) Family & Social History Family History Father Cancer Brother Cancer Hypertension Social History: household members spouse Safety & Behavioral: Feels Safe in Current Yes Environment Tobacco & Substance use: Smoking Status Never smoker alcohol intake former alcohol intake frequency 0-2 drinks per day Substance Use Type marijuana Meds Home Medications and Allergies Home Medications Medication Instructions Recorded Confirmed Type ascorbic acid (vitamin C) 1,000 mg 1,000 mg PO DAILY ##0 01/10/13 07/26/22 History tablet (Vitamin C) multivitamin 1 tab PO DAILY ##0 01/10/13 07/26/22 History omega [id number]-jhb-fish oil 1,200 mg 1 cap PO BID ##0 01/10/13 07/26/22 History (144 mg-216 mg) capsule (Fish Oil) atorvastatin 40 mg tablet (Lipitor) 40 mg PO HS ##30 02/02/13 07/26/22 Rx aspirin 81 mg tablet,delayed 81 mg PO DAILY ##0 03/12/13 07/26/22 History release losartan 50 mg tablet 50 mg PO BID ##0 03/12/13 07/26/22 History diphenhydramine 25 1 tab PO BEDTIME 09/14/18 07/26/22 History mg-acetaminophen 500 mg tablet (Tylenol PM Extra Strength) ipratropium bromide 21 mcg (0.03 2 spray intranasal BID-TID PRN 09/14/18 07/26/22 History %) nasal spray seasonal allergies cholecalciferol (vitamin D3) 25 25 mcg PO DAILY 03/25/20 07/26/22 History mcg (1,000 unit) tablet (Vitamin D3) metoprolol tartrate 50 mg tablet 50 mg PO DAILY 12/02/21 07/26/22 History fluticasone propionate 50 2 spray intranasal DAILY PRN 01/12/22 07/26/22 Rx mcg/actuation nasal Seasonal Allergies #16 grams spray,suspension nortriptyline 25 mg capsule 25 mg PO DAILY #90 caps 03/05/22 07/26/22 Rx alpha lipoic acid 300 mg capsule 600 mg PO DAILY 06/16/22 07/26/22 History duloxetine 20 mg capsule,delayed 60 mg PO DAILY #270 caps 06/16/22 07/26/22 Rx release Allergies Allergy/AdvReac Type Severity Reaction Status Date / Time No Known Drug Allergies Allergy Verified 07/26/22 13:43 Review of Systems Review of Systems Narrative: All 12 point systems reviewed with the patient and are negative except otherwise documented. Exam Vital Signs (past 8 hours): - 07/26/22 16:20 07/26/22 16:20 07/26/22 16:25 Pulse Rate 122 H Respiratory Rate 26 H Blood Pressure 145/70 H 141/67 H Pulse Oximetry 97 Oxygen Delivery Method 07/26/22 16:25 07/26/22 16:30 07/26/22 16:30 Pulse Rate 119 H 122 H Respiratory Rate 24 30 H Blood Pressure 141/65 H Pulse Oximetry 96 97 Oxygen Delivery Method 07/26/22 16:35 07/26/22 16:35 07/26/22 16:40 Pulse Rate 123 H 124 H Respiratory Rate 28 H 24 Blood Pressure 127/67 Pulse Oximetry 97 96 Oxygen Delivery Method 07/26/22 16:40 07/26/22 16:45 07/26/22 16:45 Pulse Rate 124 H Respiratory Rate 28 H Blood Pressure 139/63 145/67 H Pulse Oximetry 98 Oxygen Delivery Method 07/26/22 16:50 07/26/22 16:50 07/26/22 16:55 Pulse Rate 124 H Respiratory Rate 30 H Blood Pressure 146/63 H 155/74 H Pulse Oximetry 97 Oxygen Delivery Method 07/26/22 16:55 07/26/22 17:00 07/26/22 17:00 Pulse Rate 127 H 126 H Respiratory Rate 24 31 H Blood Pressure 144/68 H Pulse Oximetry 99 98 Oxygen Delivery Method 07/26/22 17:05 07/26/22 17:05 07/26/22 17:10 Pulse Rate 126 H Respiratory Rate 23 Blood Pressure 145/63 H 154/65 H Pulse Oximetry 98 Oxygen Delivery Method 07/26/22 17:10 07/26/22 17:15 07/26/22 17:15 Pulse Rate 127 H 126 H Respiratory Rate 30 H 28 H Blood Pressure 142/58 H Pulse Oximetry 97 99 Oxygen Delivery Method Room Air 07/26/22 17:20 07/26/22 17:20 07/26/22 17:25 Pulse Rate 124 H 119 H Respiratory Rate 22 24 Blood Pressure 147/65 H Pulse Oximetry 97 96 Oxygen Delivery Method Room Air Room Air 07/26/22 17:25 07/26/22 17:30 07/26/22 17:30 Pulse Rate 115 H Respiratory Rate 20 Blood Pressure 136/62 144/69 H Pulse Oximetry 98 Oxygen Delivery Method Room Air 07/26/22 17:36 07/26/22 17:36 07/26/22 17:40 Pulse Rate 118 H Respiratory Rate 22 Blood Pressure 141/93 H 140/74 Pulse Oximetry 98 Oxygen Delivery Method Room Air 07/26/22 17:40 07/26/22 17:45 07/26/22 17:45 Pulse Rate 118 H 118 H Respiratory Rate 20 20 Blood Pressure 114/62 Pulse Oximetry 95 98 Oxygen Delivery Method Room Air Room Air 07/26/22 18:00 07/26/22 18:00 07/26/22 18:15 Pulse Rate 118 H Respiratory Rate 31 H Blood Pressure 151/114 H 147/70 H Pulse Oximetry 97 Oxygen Delivery Method 07/26/22 18:15 07/26/22 18:30 07/26/22 18:30 Pulse Rate 118 H 119 H Respiratory Rate 31 H 33 H Blood Pressure 134/60 Pulse Oximetry 95 96 Oxygen Delivery Method 07/26/22 18:45 07/26/22 18:45 07/26/22 19:00 Pulse Rate 116 H Respiratory Rate 29 H Blood Pressure 139/84 161/73 H Pulse Oximetry 97 Oxygen Delivery Method 07/26/22 19:00 07/26/22 19:15 07/26/22 19:15 Pulse Rate 114 H 109 H Respiratory Rate 29 H 30 H Blood Pressure 139/61 Pulse Oximetry 96 Oxygen Delivery Method Room Air 07/26/22 19:30 07/26/22 19:30 07/26/22 19:45 Pulse Rate 109 H Respiratory Rate 20 Blood Pressure 134/65 149/68 H Pulse Oximetry 94 Oxygen Delivery Method Room Air 07/26/22 19:45 07/26/22 20:00 07/26/22 20:00 Pulse Rate 110 H 110 H Respiratory Rate 22 20 Blood Pressure 146/81 H Pulse Oximetry 95 96 Oxygen Delivery Method Room Air Room Air 07/26/22 20:15 07/26/22 20:15 07/26/22 20:30 Pulse Rate 111 H Respiratory Rate 28 H Blood Pressure 151/83 H 134/75 Pulse Oximetry 95 Oxygen Delivery Method 07/26/22 20:30 07/26/22 20:45 07/26/22 20:45 Pulse Rate 113 H 112 H Respiratory Rate 29 H 28 H Blood Pressure 171/82 H Pulse Oximetry 97 Oxygen Delivery Method 07/26/22 21:00 07/26/22 21:00 07/26/22 21:15 Pulse Rate 110 H Respiratory Rate 30 H Blood Pressure 160/76 H 150/67 H Pulse Oximetry 97 Oxygen Delivery Method 07/26/22 21:15 07/26/22 21:30 07/26/22 21:45 Pulse Rate 110 H 113 H 112 H Respiratory Rate 33 H 22 23 Blood Pressure Pulse Oximetry 98 Oxygen Delivery Method Room Air Room Air 07/26/22 22:00 07/26/22 22:15 07/26/22 22:30 Pulse Rate 113 H 113 H 113 H Respiratory Rate 24 27 H 30 H Blood Pressure Pulse Oximetry Oxygen Delivery Method Room Air 07/26/22 22:45 07/26/22 23:00 Pulse Rate 110 H 109 H Respiratory Rate 27 H Blood Pressure Pulse Oximetry Oxygen Delivery Method Oxygen Delivery Method Room Air Narrative Exam Narrative: General: Patient is a well-developed, well-nourished mildly ill-appearing, though fit 87-year-old male in no distress at this time. HEENT: Normocephalic, atraumatic, extraocular muscles intact, oral pharynx is clear and mucous membranes are moist. Neck is supple and symmetric, trachea is midline, no adenopathy, no thyroid enlargement, nontender, no masses palpated. Negative for JVD, Upper respiratory congestion. Chest: Normal AP diameter and contour without kyphoscoliosis, no nasal flaring, retractions, positive tachypneic labored breathing. Lungs: Auscultation of all lung garcia are clear without adventitious sounds, wheezes, rhonchi, or rales. Cardio: Irregular rate and rhythm without murmur, rubs, or gallops, no carotid bruit, no cardiac pulsations present. Abdomen: Soft nontender, negative for organomegaly, or masses. Bowel sounds are present in all 4 quadrants without guarding or rebound, no CVA tenderness. Musculoskeletal: Muscle strength and tone are equal within normal limits, no deformity, crepitus, effusions, cyanosis, clubbing or edema present. Full range of motion intact radial and pedal pulses are normal. Skin: Warm dry and intact without rashes, ulcerations or petechiae. Neuro: Alert and orientated x3, strength is +5/5 in all extremities, sensation to touch intact, no gross deficits noted of cranial nerves. Psych: Patient has a well-kept appearance, appropriate affect, mental status attitude thought context and judgment are appropriate for age. Objective Labs Result Diagrams: 07/26/22 14:10 07/26/22 14:10 Labs: Laboratory Results - last 24 hr 07/26/22 07/26/22 07/26/22 13:57 14:10 14:10 WBC 4.2 L RBC 4.49 L Hgb 13.9 Hct 41.9 MCV 93.2 MCH 31.0 MCHC 33.2 RDW 12.8 Plt Count 113 L Neut % (Auto) 64.9 Lymph % (Auto) 14.6 L Sargent % (Auto) 19.8 H Eos % (Auto) 0.1 L Baso % (Auto) 0.6 Neut # (Auto) 2700 Lymph # (Auto) 600 L Sargent # (Auto) 800 Eos # (Auto) 0 Baso # (Auto) 0 PT 14.2 H INR 1.2 APTT 30 Sodium Potassium Chloride Carbon Dioxide BUN Creatinine Estimated GFR BUN/Creatinine Ratio Glucose Lactate Calcium Magnesium Total Bilirubin AST ALT Alkaline Phosphatase Total Creatine Kinase CK-MB (CK-2) CK-MB (CK-2) Rel Index Troponin I NT-Pro-B Natriuret Pep Total Protein Albumin Globulin Albumin/Globulin Ratio Lipase Procalcitonin Ethyl Alcohol SARS-CoV-2 (PCR) Negative Influenza A (RT-PCR) Flu a positive H Influenza B (RT-PCR) Flu b negative RSV (PCR) Negative 07/26/22 07/26/22 07/26/22 14:10 14:10 14:10 WBC RBC Hgb Hct MCV MCH MCHC RDW Plt Count Neut % (Auto) Lymph % (Auto) Sargent % (Auto) Eos % (Auto) Baso % (Auto) Neut # (Auto) Lymph # (Auto) Sargent # (Auto) Eos # (Auto) Baso # (Auto) PT INR APTT Sodium 134 L Potassium 3.5 Chloride 98 Carbon Dioxide 22 BUN 13 Creatinine 0.95 Estimated GFR > 60 BUN/Creatinine Ratio 13.7 Glucose 122 H Lactate 2.4 H Calcium 8.1 L Magnesium Total Bilirubin 0.8 AST 43 ALT 26 Alkaline Phosphatase 69 Total Creatine Kinase 287 H CK-MB (CK-2) 3.44 H CK-MB (CK-2) Rel Index 1.2 L Troponin I 0.058 H NT-Pro-B Natriuret Pep Total Protein 7.9 Albumin 4.3 Globulin 3.6 Albumin/Globulin Ratio 1.2 Lipase 104 Procalcitonin 0.15 Ethyl Alcohol SARS-CoV-2 (PCR) Influenza A (RT-PCR) Influenza B (RT-PCR) RSV (PCR) 07/26/22 07/26/22 07/26/22 17:05 17:05 17:05 WBC RBC Hgb Hct MCV MCH MCHC RDW Plt Count Neut % (Auto) Lymph % (Auto) Sargent % (Auto) Eos % (Auto) Baso % (Auto) Neut # (Auto) Lymph # (Auto) Sargent # (Auto) Eos # (Auto) Baso # (Auto) PT INR APTT Sodium Potassium Chloride Carbon Dioxide BUN Creatinine Estimated GFR BUN/Creatinine Ratio Glucose Lactate 1.0 Calcium Magnesium 2.1 Total Bilirubin AST ALT Alkaline Phosphatase Total Creatine Kinase 266 H CK-MB (CK-2) 3.39 H CK-MB (CK-2) Rel Index 1.3 L Troponin I 0.063 H NT-Pro-B Natriuret Pep Total Protein Albumin Globulin Albumin/Globulin Ratio Lipase Procalcitonin Ethyl Alcohol < 10 SARS-CoV-2 (PCR) Influenza A (RT-PCR) Influenza B (RT-PCR) RSV (PCR) 07/26/22 07/26/22 17:05 22:42 WBC RBC Hgb Hct MCV MCH MCHC RDW Plt Count Neut % (Auto) Lymph % (Auto) Sargent % (Auto) Eos % (Auto) Baso % (Auto) Neut # (Auto) Lymph # (Auto) Sargent # (Auto) Eos # (Auto) Baso # (Auto) PT INR APTT Sodium Potassium Chloride Carbon Dioxide BUN Creatinine Estimated GFR BUN/Creatinine Ratio Glucose Lactate Calcium Magnesium Total Bilirubin AST ALT Alkaline Phosphatase Total Creatine Kinase CK-MB (CK-2) CK-MB (CK-2) Rel Index Troponin I 0.045 H NT-Pro-B Natriuret Pep 197 Total Protein Albumin Globulin Albumin/Globulin Ratio Lipase Procalcitonin Ethyl Alcohol SARS-CoV-2 (PCR) Influenza A (RT-PCR) Influenza B (RT-PCR) RSV (PCR) Assessment & Plan Assessment & Plan narrative: Ar Ross is a [place] 87 year old male with a past medical history of NV with 1 stent placement, CAD, essential hypertension, hyperlipidemia, chronic headache, major depressive disorder, peripheral neuropathy, chronic low back pain, and subdural hematoma who presented today via EMS with his both patient's for increased weakness shortness of breath fever body aches chills and elevated heart rate. Patient found to be in new onset AFib with RVR, and positive for influenza A. 1. Atrial fibrillation with RVR, acute, new onset, present on admission -HR 120 to 140s, tachypneic RR 20-30, with low-grade fever 100.1 saturated well 98% on room air. -In ED:given 10 mg of oral diltiazem, and oral metoprolol for rate control.Patient was able to be cardioverted and rate stabilization with oral medication -at the time of admit patient had converted to normal sinus rhythm continued to have variable rate between 108-115 but predominantly controlled below 110. -last echo 11/03/2021 predominantly normal with an EF 55-60%, last NM stress 2020 considered low risk -ordered echocardiogram for tomorrow, will defer ordering nuclear med stress test until patient's influenza has resolved. -metoprolol 5 mg IV pushes as needed for one of the following SBP> 180, or DBP> 100, or HR> 110-for greater than 30 minutes-max of 3 doses/15 mL. -patient was previously taking metoprolol IR 50 mg once daily changed him to metoprolol ER 75 mg q.day to start in Am -Eliquis 5 mg b.i.d. -Ordered TSH/T4/mag/BNP/etoh 2. Influenza a, acute, present on admission -patient is symptomatic-with continued low-grade fever, tachycardia, tachypneic but not requiring oxygen at this time. -frequently coughing unable to complete more than 3 or 4 words without shortness of breath slightly labored breathing audible congestion, and appears quite fatigued. -negative for RSV COVID and influenza B. patient is positive for influenza A. -checks x-ray is negative -WBC 4.2, platelets 113 (leukopenia, thrombocytopenia) -respiratory consult as needed, DuoNebs q.4 hours while awake, incentive spirometry -sputum and blood cultures pending - lactate 2.4, repeat is 1.0 -ordered CRP, procalc, u/a 3. Myocardial injury, acute, likely secondary to demand ischemia from atrial fibrillation and influenza a, present on admission -CK-2:3.44, initial troponin 0.058, repeat 0.063, -will continue to trend, patient on telemedicine -EKG atrial fibrillation with a rate of [address] or T-wave changes I personally reviewed and is unchanged since EKG in 2013. 4. Hypertension essential, acute on chronic, present on admission -changing patient's metoprolol 50 mg q.day to extended-release metoprolol 75 mg q.day -continue losartan 5. Coronary artery disease with history of NV stent placement, mixed hyperlipidemia, chronic, present on admission -continue losartan metoprolol Lipitor asa 6. Chronic headaches, present on admission -continue nortriptyline 7. Major depressive disorder, chronic, present on admission -continue Wellbutrin Code status:DNR Surrogate decision maker: Marbella Ross COVID PCR:Negative DVT/VTE prophylaxis: Eliquis and SCDs Disposition: Patient admitted for observation to achieve cardioversion and rate control of atrial fibrillation as well symptom management of influenza A, expected length of stay less than 2 midnights. I have utilized all available immediate resources to obtain, update, or review the patient's current medications. I confirmed that the patient's advanced care plan is present, Code status is documented and/or surrogate decision maker is listed in the patient's medical record. I have personally reviewed patient's chart notes from PCP, specialists, diagnostic imaging, and laboratory, Time Spent With Patient Critical Care time: I spent a total of [] minutes of critical care time on this patient's care today; this time is exclusive of procedural time.
[2022-07-27 00:31] LABS: Appearance Urine UA CLEAR; Bilirubin Urine UA NEGATIVE (NEGATIVE); Color Urine UA YELLOW; Glucose Urine UA NEGATIVE (Negative); Ketones Urine UA 1+ (NEGATIVE); Leukocyte Esterase Urine UA NEGATIVE (NEGATIVE); Nitrite Urine UA NEGATIVE (Negative); Occult Blood Urine UA 2+ (Negative); Protein Urine UA TRACE (Negative); Urobilinogen Urine UA 0.2 E.U./dL (0.2); pH Urine UA 6.5 (4.5-8.0)
--- NOTE | 2022-07-27 00:43 | DI.ECHO.S_ITS ---
[facility] +---------+ : : [address] : : : : [id number] : : : : Phone: [phone]+ Echocardiogram Report + + :Name: DARIAN LERNER Study Date: 07/27/2022 Height: 74 in : :[facility] ReadingLocation: Weight: 205 lb : : Gender: Male BSA: 2.2 m2 : :: 1935 Age: 87 yrs BP: 127/83 mmHg: :Reason For Study: NEW AFIB RVR : : Performed By: Elver Gordon : :Referring: IBRAHIMA MERINO : + + Interpretation Summary 1) Normal left ventricular thickness, size, and systolic function (EF 60-65%). 2) Mid inferolateral wall appears hypokinetic. 3) Normal right ventricular size and function. 4) No significant valvular abnormalities. 5) No prior Echo available for comparison. Procedure: A two-dimensional transthoracic echocardiogram with color flow and Doppler was performed. The study quality was technically adequate. Comparison is made with the echocardiogram of 11/03/21. The patient was in normal sinus rhythm during the exam. The patient became tachycardic near the end of the exam with a heart rate averaging 115 bpm. Left Ventricle: The left ventricle is normal in size. There is normal left ventricular wall thickness. The ejection fraction is estimated to be 60-65%. Mid inferolateral wall appears hypokinetic. Diastolic parameters suggest a relaxation abnormality of the left ventricle, consistent with probable normal filling pressures. Right Ventricle: The right ventricle is normal in size and function. Atria: The left atrium is moderately dilated. Right atrial size is normal. There is no Doppler evidence for an atrial septal defect. Mitral Valve: The mitral valve is normal in structure and function. There is no mitral regurgitation noted. Aortic Valve: The aortic valve is not well visualized. The aortic valve opens well. There is no aortic valve stenosis. No aortic regurgitation is present. Tricuspid Valve: The tricuspid valve is normal in structure and function. There is mild tricuspid regurgitation. The right ventricular systolic pressure is estimated to be at least 22 mmHg based on an estimated right atrial pressure of 3 mm Hg. Pulmonic Valve: The pulmonic valve is not well seen, but is grossly normal. There is no pulmonic valvular regurgitation. Great Vessels: The aortic root is normal size. The dimensions of the ascending aorta are normal. The pulmonary artery is normal size. The IVC is of normal diameter and collapses greater than 50% with a sniff. This suggests a low right atrial pressure of 3 mm Hg. Pericardium/ Pleura There is no pericardial effusion. There is no pleural effusion. MMode/2D Measurements & Calculations LVIDd: 4.2 cm LVOT diam: 2.3 cm LVIDs: 2.9 cm Ao root diam: 3.5 cm FS: 31.8 % asc Aorta Diam: 3.2 cm EPSS: 0.53 cm IVSd: 0.89 cm LVPWd: 0.88 cm LV tamayo. diameter/BSA (cm/m^2): 1.9 LV sys. diameter/BSA (cm/m^2): 1.3 LA A2 area: 28.7 cm2 RA long axis: 5.1 cm LA A4 area: 23.5 cm2 RA area: 18.8 cm2 LA length (vol): 6.2 cm RA vol: 58.9 ml LA vol: 92.5 ml RA : 26.8 ml/m2 LA vol index: 42.1 ml/m2 IVC diam: 1.5 cm TAPSE: 2.3 cm Doppler Measurements & Calculations Ao V2 max: 145.9 cm/sec LVOT Max Joey: 94.5 cm/sec Ao V2 mean: 110.5 cm/sec LV V1 max P.6 mmHg Ao max P.5 mmHg LV V1 VTI: 22.3 cm Ao mean P.3 mmHg OSCAR(I,D): 3.1 cm2 Ao V2 VTI: 29.0 cm OSCAR(V,D): 2.6 cm2 sev ratio: 0.77 OSCAR indexed to BSA (cm^2/m^2): 1.4 MV E max joey: 62.9 cm/sec TR max joey: 218.5 cm/sec MV A max joey: 87.3 cm/sec TR max P.1 mmHg MV E/A: 0.72 PA V2 max: 98.8 cm/sec Med Peak E' Joey: 4.2 cm/sec PA V2 mean: 81.9 cm/sec E/E' med: 14.9 PA mean P.8 mmHg Lat Peak E' Joey: 7.8 cm/sec PA pr(Accel): 56.7 mmHg E/E' lat: 8.1 E/e' average: 11.5 MV dec time: 0.22 sec SV(LVOT): 90.2 ml Reading Physician:12:35 PM
[2022-07-27 00:53] LABS: Bacteria Urine None Seen; Culture Indicated Urine Cult Not Indicated; Granular Casts Urine 0-1/LPF; RBC Urine 5-10/HPF (0-5/HPF); WBC Urine 0-1/HPF (0-5/HPF)
[2022-07-27 06:00] LABS: Add Manual Diff / Slide Review NO; Basophils Absolute Auto 0 /uL (0-100); Basophils Percent Auto 0.5 % (0-2); Eosinophils Absolute Auto 0 /uL (0-450); Eosinophils Percent Auto 1.2 % (2-4); Hematocrit 36.2 % (41-53); Hemoglobin 12.2 g/dL (13.5-17.5); Lymphocytes Absolute Auto 800 /uL (1100-4500); Lymphocytes Percent Auto 34.2 % (25-40); Mean Corpuscular HGB Conc 33.7 % (30-36); Mean Corpuscular Hemoglobin 31.2 PG (26-34); Mean Corpuscular Volume 92.5 fL (80-100); Monocytes Absolute Auto 500 /uL (0-900); Monocytes Percent Auto 23.9 % (3-14); Neutrophils Absolute Auto 900 /uL (1500-7000); Neutrophils Percent Auto 40.2 % (50-75); Platelet Count 89 X10^3/uL (150-400); Red Blood Cell Count 3.92 X10^6/uL (4.5-5.9); Red Cell Distribution Width 12.8 % (11.6-14.8); White Blood Cell Count 2.3 X10^3/uL (4.5-11.0)
[2022-07-27 06:04] LABS: INR 1.3 (0.9-1.3); Prothrombin Time 15.4 SECONDS (10.1-12.7)
[2022-07-27 06:29] LABS: BUN Creatinine Ratio 15.5 (6-22); Blood Urea Nitrogen 9 mg/dL (9-20); Calcium 7.2 mg/dL (8.4-10.2); Carbon Dioxide 24 mmol/L (22-32); Chloride 104 mmol/L (98-107); Cholesterol 89 mg/dL (140-199); Estimated Glomerular Filt Rate > 60 mL/min (>60); Glucose 97 mg/dL (80-110); HDL Cholesterol 32 mg/dL (40-60); HEMOLYSIS < 15 (0-50); LDL Cholesterol Calculated 45 mg/dL (<100); Potassium 3.2 mmol/L (3.4-5.1); Sodium 137 mmol/L (137-145); Triglycerides 59 mg/dL (35-150)
[2022-07-27 06:35] LABS: Troponin I 0.031 ng/mL (0.01-0.034)
[2022-07-27 06:41] LABS: Free T4, Direct Thyroxine 1.54 ng/dL (0.78-2.19)
[2022-07-27 06:55] LABS: Thyroid Stimulating Hormone 1.51 uIU/mL (0.47-4.68)
[2022-07-27] MEDS: ALBUTEROL/IPRATROPIUM 3 ML AMPUL INH (08:48)
[2022-07-27] MEDS: METOPROLOL ER 25 MG TABLET 75 MG PO (08:53)
[2022-07-27] MEDS: POTASSIUM CHLORIDE 20 MEQ TAB 40 MEQ PO ×2 (08:53→13:37)
[2022-07-27] MEDS: APIXABAN 5 MG TABLET PO (08:54)
--- NOTE | 2022-07-27 10:30 | PT.IIE ---
Surgical History (Last Reviewed 07/27/22 @ 00:30 by ALEK Lei) History of lumbar laminectomy Stented coronary artery (~2012) Medical History (Last Reviewed 07/27/22 @ 00:30 by ALEK Lei) Arthritis Chronic headache Coronary artery disease Do not resuscitate Essential hypertension Facet arthropathy, lumbar History of heart attack Idiopathic polyneuropathy Lumbar stenosis Medicare annual wellness visit, initial Menieres disease Mixed hyperlipidemia Subdural hematoma, acute (~02/19/20) Physical Therapy Inpatient Evaluation/Re-Eval M1 PT/OT-IP Prior Functional Status Start: 07/27/22 12:40 Freq: NEEDED Status: Active Protocol: Document 07/27/22 10:30 AB (Rec: 07/27/22 12:50 AB [id number]) Medical Review Prior Functional Status Medical History Reviewed Yes Communication able to make needs known Mobility and Gait pt stated that he is independent with all mobilities and ambulation without AD Social History Household Members spouse Living Arrangements House Number of Floors (Floors) 3 or More Floors Number of Stairs To Enter/Railing? 2 steps R rail ascending +5 steps L rail ascending to enter the house 14 steps with 1 rail to get to main level of the house Home Environment High Toilet,Walk in Shower,Tub /Shower Home Equipment Straight Cane,Hand Held Shower M2 PT-IP Current Condition Start: 07/27/22 12:40 Freq: NEEDED Status: Active Protocol: Document 07/27/22 10:30 AB (Rec: 07/27/22 12:50 AB [id number]) Physical Therapy Current Condition Current Condition Evaluation Date 07/27/22 Treatment Diagnosis SOB; Influenza A; generalized weakness Onset Date 07/26/22 M3 PT-IP Subjective Start: 07/27/22 12:40 Freq: NEEDED Status: Active Protocol: Document 07/27/22 10:30 AB (Rec: 07/27/22 12:50 AB [email or web address]) Subjective Physical Therapy Visit Type Type Initial Evaluation Visit Start Time 10:30 Visit Stop Time 10:50 Total Visit Minutes 20 Number of [employer] Visits 0 Physical Therapy Visit Comments Patient Comments agreeable to do PT Therapy Pain Assessment Pain Present Pain Present Denied Pain M4 PT-IP Mobility and Gait Start: 07/27/22 12:40 Freq: NEEDED Status: Active Protocol: Document 07/27/22 10:30 AB (Rec: 07/27/22 12:50 AB [email or web address]) PT-Bed Mobility Assessment Supine to Sit Supine to Sit Independent PT-Transfer Assessment Sit to and From Stand Sit to and from Stand Standby Assistance Equipment Transfer Assistive Device None Orthotic/Prosthetic Devices or Brace: No Transfers Transfer Destination Chair Transfer Technique ambulated Transfer Ability Level of Assist Standby Assistance Comments Mobility Comments completed supine to sit independent. able to sit on EOB SBA. O2 sat 94-96% during PT session. completed sit to stand sBA and ambulated in room without AD SBA. completed up/down step stool using 1 rail SBA. pt with no LOB but with slow paced gait. informed pt that he is stable with mobility and no PT needs at this time and pt agreed. educated pt to mobilize by himself or ask nurse if needed for assistance. Pt agreed. Gait Assessment Gait Gait Assistance Required: Standby Assistance Distance (Feet) 50 Able to Maintain Weight Bearing Status Yes During Gait Assistive Devices Assistive Device None Orthotic/Prosthetic Devices or Brace: No Factors Limiting Gait Function Factors Limiting Gait Function Decreased Activity Tolerance, Decreased Strength Stair Climbing Assessment Evaluation Level of Assist On Stairs Standby Assistance Devices Stair Climbing Assistive Devices Left Railing,Right Railing PT-Balance Assessment Sitting Balance and Reactions Static Sitting Balance Ability Normal Dynamic Sitting Balance Ability Normal Standing Balance and Reactions Static Standing Balance Ability Good Dynamic Standing Balance Ability Good Device Used no AD M5 PT-IP Objective Assessments Start: 07/27/22 12:40 Freq: NEEDED Status: Active Protocol: Document 07/27/22 10:30 AB (Rec: 07/27/22 12:50 AB [id number]) Orientation Orientation/Cognition Level of Alertness Alert Orientation Name,Place,Situation Language Function Ability No Deficits Noted Safety Awareness Understands Safety Issues Memory Description No Deficits Noted Gross Range of Motion Lower Extremity ROM Assessment Within Functional Limits Strength Lower Extremity Strength Assessment Within Functional Limits Sensation Assessment Sensation Gross Sensation WNL Muscle Tone Muscle Tone WNL Yes M6 PT-IP Treatment Start: 07/27/22 12:40 Freq: NEEDED Status: Active Protocol: Document 07/27/22 10:30 AB (Rec: 07/27/22 12:50 AB [id number]) Physical Therapy Treatment Education Education Provided Safety M7 PT-IP Assessment and Plan Start: 07/27/22 12:40 Freq: NEEDED Status: Active Protocol: Document 07/27/22 10:30 AB (Rec: 07/27/22 12:50 AB [email or web address]) PT Summary Assessment and Plan Potential Rehabilitation Potential Good Status of Condition at Evaluation Stable Summary Impairments Activity Tolerance Assessment Summary PT eval completed. No further PT needs indicated at this time SBA provided for safety only. informed nurse regarding pt's mobility. Frequency of Treatment Frequency Of Treatment Discharge Recommendations To Nursing Amount of Assist Needed Standby Assistance Discharge Recommendations PT Discharge Recommendations Home Transportation Needs at Discharge Private Vehicle
[2022-07-27] MEDS: CODEINE/GUAIFENESIN LIQUID 5ML UDC 5 ML PO (13:37)
--- NOTE | 2022-07-27 14:17 | PM.DS.1 ---
History of Present Illness History of Present Illness Date Patient Seen: 07/27/22 Chief complaint: SOB, Weak legs Narrative: Per admitting provider, Ar Ross is a [place] 87 year old male with a past medical history of [place] with 1 stent placement, CAD, essential hypertension, hyperlipidemia, chronic headache, major depressive disorder, peripheral neuropathy, chronic low back pain, and subdural hematoma who presented today via EMS -both he and his presented as patient's to the ED and have both been admitted. Patient states that for the past several days he has been running a low-grade fever, elevated heart rate up into the 140s, body aches, chills, fever. Cough, shortness of breath, headache, congestion, sore throat and progressive fatigue and weakness. Patient lives with his in a two-story home and notes that for the past 6 months he is noted an elevated heart rate especially exacerbated whenever going up flights of stairs mat gauger is Dr. Boss and reports that he has had an unremarkable cardiac workup within the past year. While in the ED patient patient found to be in AFib with RVR HR 120 to 140s, tachypneic RR 20-30, with low-grade fever 100.1 saturated well 98% on room air. Patient was given 10 mg of oral diltiazem, and oral metoprolol for rate control. Patient denies abdominal pain nausea, vomiting, diarrhea, constipation hematemesis, hematuria, melena, recent illness, injury, trauma, infections, changes to medication, weakness, numbness, tingling, recent falls. At the time of admit temp continues 100.1, tachycardic HR 139, BP 111/63, RR 19, O2 saturation 98% on room air. At the time of exam patient is no longer in AFib is resting comfortably but is frequently coughing unable to complete more than 3 or 4 words without shortness of breath slightly labored breathing audible congestion, and appears quite fatigued. WBC 4.2, platelets 113, sodium 134, glucose 122 patient is negative for RSV COVID and influenza B. patient is positive for influenza A. Patient's lactate 2.4, repeat is 1.0, T CK 287, CK-2: 3.44, initial troponin 0.058, repeat 0.063, patient's EKG atrial fibrillation with a rate of [address] or T-wave changes I personally reviewed and is unchanged since EKG in 2013. Patient's checks x-ray is negative for any acute cardiopulmonary process. Patient admitted for atrial fibrillation with RVR new onset, and influenza a. Patient was able to be cardioverted and rate stabilization with oral medication at this time in the ED. Discharge Providers Provider Date of admission: 07/26/22 19:24 Discharge Date: 07/27/22 Primary care physician: Titi Segal MD Consults: 07/26/22 20:10 Consult to Occupational Therapy Evaluate & Treat Comment: weakness Physician Instructions: Evaluate and treat Consult to Physical Therapy Evaluate & Treat Comment: weakness Physician Instructions: Evaluate and Treat 07/27/22 11:40 Consult to Home Health Routine Comment: Reason For Exam: Home health upon discharge Discharge provider: David Lopez DO Summary Hospital Course Discharge Diagnosis: 1. Atrial fibrillation with RVR, acute, new onset, present on admission 2. Influenza a, acute, present on admission 3. Myocardial injury, acute, likely secondary to demand ischemia from atrial fibrillation and influenza a, present on admission 4. Hypertension essential, acute on chronic, present on admission 5. Coronary artery disease with history of [place] stent placement, mixed hyperlipidemia, chronic, present on admission 6. Chronic headaches, present on admission 7. Major depressive disorder, chronic, present on admission Hospital Course: This is an 87-year-old male admitted with a new diagnosis of atrial fibrillation, with rapid ventricular response and influenza a infection. He had a mildly elevated troponin on initial laboratory evaluation which subsequently downtrended and is thought to be due in the setting of in the infection and his RVR. He quickly to sinus rhythm both diltiazem and metoprolol. He maintained adequate rate control continuing on metoprolol 50 mg twice a day, which is double his prior dose which he was taking for hypertension. Echocardiogram was unremarkable and he had a low risk stress test in 2020. Given this is the 1st time he developed atrial fibrillation in the setting of an influenza infection, shared decision making was performed with the patient regarding anticoagulation, with the ultimate decision to discharge on a baby aspirin at this time. There discussion with his primary care provider is recommended depending on if there are future recurrences of his atrial fibrillation. He was noted to be mildly hypertensive during the course of his stay, though this slightly improved with the increase in the beta-hansa. Further adjustments with his primary care provider recommended depending on his blood pressure values at home. For his influenza, the patient presented within 5 days of symptom onset, and again shared decision-making was performed and Tamiflu was sent after discussion of risks and benefits for him to complete at home. No other medication changes are recommended at the time of discharge. I do recommend follow-up with his primary care provider in the next couple of weeks. Exam Vital Signs (past 8 hours): - 07/27/22 08:53 07/27/22 07:30 07/27/22 09:10 Temperature 97.1 F L Pulse Rate 93 H 81 Respiratory Rate 18 Blood Pressure 161/89 H 161/89 H Pulse Oximetry 96 96 Oxygen Delivery Method Room Air Oxygen Flow Rate 0 0 07/27/22 11:00 07/27/22 13:00 Temperature 96.3 F L Pulse Rate 91 H Respiratory Rate 24 Blood Pressure 157/82 H Pulse Oximetry 99 97 Oxygen Delivery Method Room Air Oxygen Flow Rate 0 0 Oxygen Delivery Method Room Air Oxygen Flow Rate 0 Narrative Exam Narrative: General: Patient is a well-developed, well-nourished mildly ill-appearing, though fit 87-year-old male in no distress at this time. HEENT: Normocephalic, atraumatic, extraocular muscles intact, oral pharynx is clear and mucous membranes are moist. Neck is supple and symmetric, trachea is midline, no adenopathy, no thyroid enlargement, nontender, no masses palpated. Negative for JVD, Upper respiratory congestion. Chest: Normal AP diameter and contour without kyphoscoliosis, no nasal flaring, retractions, positive tachypneic labored breathing. Lungs: Auscultation of all lung garcia are clear without adventitious sounds, wheezes, rhonchi, or rales. Cardio: Irregular rate and rhythm without murmur, rubs, or gallops, no carotid bruit, no cardiac pulsations present. Abdomen: Soft nontender, negative for organomegaly, or masses. Bowel sounds are present in all 4 quadrants without guarding or rebound, no CVA tenderness. Musculoskeletal: Muscle strength and tone are equal within normal limits, no deformity, crepitus, effusions, cyanosis, clubbing or edema present. Full range of motion intact radial and pedal pulses are normal. Skin: Warm dry and intact without rashes, ulcerations or petechiae. Neuro: Alert and orientated x3, strength is +5/5 in all extremities, sensation to touch intact, no gross deficits noted of cranial nerves. Psych: Patient has a well-kept appearance, appropriate affect, mental status attitude thought context and judgment are appropriate for age. Objective Labs Result Diagrams: 07/27/22 05:37 07/27/22 05:37 Labs: Laboratory Results - last 24 hr 07/26/22 07/26/22 07/26/22 13:57 14:10 14:10 WBC 4.2 L RBC 4.49 L Hgb 13.9 Hct 41.9 MCV 93.2 MCH 31.0 MCHC 33.2 RDW 12.8 Plt Count 113 L Neut % (Auto) 64.9 Lymph % (Auto) 14.6 L Dewitt % (Auto) 19.8 H Eos % (Auto) 0.1 L Baso % (Auto) 0.6 Neut # (Auto) 2700 Lymph # (Auto) 600 L Dewitt # (Auto) 800 Eos # (Auto) 0 Baso # (Auto) 0 PT 14.2 H INR 1.2 APTT 30 Sodium Potassium Chloride Carbon Dioxide BUN Creatinine Estimated GFR BUN/Creatinine Ratio Glucose Lactate Calcium Magnesium Total Bilirubin AST ALT Alkaline Phosphatase Total Creatine Kinase CK-MB (CK-2) CK-MB (CK-2) Rel Index Troponin I C-Reactive Protein NT-Pro-B Natriuret Pep Total Protein Albumin Globulin Albumin/Globulin Ratio Triglycerides Cholesterol LDL Cholesterol, Calc HDL Cholesterol Lipase Procalcitonin TSH Free T4 Urine Color Urine Appearance Urine pH Ur Specific [place] Urine Protein Urine Glucose (UA) Urine Ketones Urine Occult Blood Urine Nitrate Urine Bilirubin Urine Urobilinogen Ur Leukocyte Esterase Urine RBC Urine WBC Urine Bacteria Granular Casts Ur Culture Indicated? Ethyl Alcohol SARS-CoV-2 (PCR) Negative Influenza A (RT-PCR) Flu a positive H Influenza B (RT-PCR) Flu b negative RSV (PCR) Negative 07/26/22 07/26/22 07/26/22 14:10 14:10 14:10 WBC RBC Hgb Hct MCV MCH MCHC RDW Plt Count Neut % (Auto) Lymph % (Auto) Dewitt % (Auto) Eos % (Auto) Baso % (Auto) Neut # (Auto) Lymph # (Auto) Dewitt # (Auto) Eos # (Auto) Baso # (Auto) PT INR APTT Sodium 134 L Potassium 3.5 Chloride 98 Carbon Dioxide 22 BUN 13 Creatinine 0.95 Estimated GFR > 60 BUN/Creatinine Ratio 13.7 Glucose 122 H Lactate 2.4 H Calcium 8.1 L Magnesium Total Bilirubin 0.8 AST 43 ALT 26 Alkaline Phosphatase 69 Total Creatine Kinase 287 H CK-MB (CK-2) 3.44 H CK-MB (CK-2) Rel Index 1.2 L Troponin I 0.058 H C-Reactive Protein NT-Pro-B Natriuret Pep Total Protein 7.9 Albumin 4.3 Globulin 3.6 Albumin/Globulin Ratio 1.2 Triglycerides Cholesterol LDL Cholesterol, Calc HDL Cholesterol Lipase 104 Procalcitonin 0.15 TSH Free T4 Urine Color Urine Appearance Urine pH Ur Specific [place] Urine Protein Urine Glucose (UA) Urine Ketones Urine Occult Blood Urine Nitrate Urine Bilirubin Urine Urobilinogen Ur Leukocyte Esterase Urine RBC Urine WBC Urine Bacteria Granular Casts Ur Culture Indicated? Ethyl Alcohol SARS-CoV-2 (PCR) Influenza A (RT-PCR) Influenza B (RT-PCR) RSV (PCR) 07/26/22 07/26/22 07/26/22 17:05 17:05 17:05 WBC RBC Hgb Hct MCV MCH MCHC RDW Plt Count Neut % (Auto) Lymph % (Auto) Dewitt % (Auto) Eos % (Auto) Baso % (Auto) Neut # (Auto) Lymph # (Auto) Dewitt # (Auto) Eos # (Auto) Baso # (Auto) PT INR APTT Sodium Potassium Chloride Carbon Dioxide BUN Creatinine Estimated GFR BUN/Creatinine Ratio Glucose Lactate 1.0 Calcium Magnesium 2.1 Total Bilirubin AST ALT Alkaline Phosphatase Total Creatine Kinase 266 H CK-MB (CK-2) 3.39 H CK-MB (CK-2) Rel Index 1.3 L Troponin I 0.063 H C-Reactive Protein NT-Pro-B Natriuret Pep Total Protein Albumin Globulin Albumin/Globulin Ratio Triglycerides Cholesterol LDL Cholesterol, Calc HDL Cholesterol Lipase Procalcitonin TSH Free T4 Urine Color Urine Appearance Urine pH Ur Specific [place] Urine Protein Urine Glucose (UA) Urine Ketones Urine Occult Blood Urine Nitrate Urine Bilirubin Urine Urobilinogen Ur Leukocyte Esterase Urine RBC Urine WBC Urine Bacteria Granular Casts Ur Culture Indicated? Ethyl Alcohol < 10 SARS-CoV-2 (PCR) Influenza A (RT-PCR) Influenza B (RT-PCR) RSV (PCR) 07/26/22 07/26/2207/27/22 17:05 22:42 00:03 WBC RBC Hgb Hct MCV MCH MCHC RDW Plt Count Neut % (Auto) Lymph % (Auto) Dewitt % (Auto) Eos % (Auto) Baso % (Auto) Neut # (Auto) Lymph # (Auto) Dewitt # (Auto) Eos # (Auto) Baso # (Auto) PT INR APTT Sodium Potassium Chloride Carbon Dioxide BUN Creatinine Estimated GFR BUN/Creatinine Ratio Glucose Lactate Calcium Magnesium Total Bilirubin AST ALT Alkaline Phosphatase Total Creatine Kinase CK-MB (CK-2) CK-MB (CK-2) Rel Index Troponin I 0.045 H C-Reactive Protein NT-Pro-B Natriuret Pep 197 Total Protein Albumin Globulin Albumin/Globulin Ratio Triglycerides Cholesterol LDL Cholesterol, Calc HDL Cholesterol Lipase Procalcitonin TSH Free T4 Urine Color Yellow Urine Appearance Clear Urine pH 6.5 Ur Specific [place] 1.010 Urine Protein Trace H Urine Glucose (UA) Negative Urine Ketones 1+ H Urine Occult Blood 2+ H Urine Nitrate Negative Urine Bilirubin Negative Urine Urobilinogen 0.2 Ur Leukocyte Esterase Negative Urine RBC 5-10/hpf H Urine WBC 0-1/hpf Urine Bacteria None seen Granular Casts 0-1/lpf Ur Culture Indicated? Cult not indicated Ethyl Alcohol SARS-CoV-2 (PCR) Influenza A (RT-PCR) Influenza B (RT-PCR) RSV (PCR) 07/27/22 07/27/22 07/27/22 05:37 05:37 05:37 WBC 2.3 L RBC 3.92 L Hgb 12.2 L Hct 36.2 L MCV 92.5 MCH 31.2 MCHC 33.7 RDW 12.8 Plt Count 89 L Neut % (Auto) 40.2 L D Lymph % (Auto) 34.2 Dewitt % (Auto) 23.9 H Eos % (Auto) 1.2 L Baso % (Auto) 0.5 Neut # (Auto) 900 L Lymph # (Auto) 800 L Dewitt # (Auto) 500 Eos # (Auto) 0 Baso # (Auto) 0 PT 15.4 H INR 1.3 APTT Sodium 137 Potassium 3.2 L Chloride 104 Carbon Dioxide 24 BUN 9 Creatinine 0.58 L Estimated GFR > 60 BUN/Creatinine Ratio 15.5 Glucose 97 Lactate Calcium 7.2 L Magnesium Total Bilirubin AST ALT Alkaline Phosphatase Total Creatine Kinase CK-MB (CK-2) CK-MB (CK-2) Rel Index Troponin I C-Reactive Protein NT-Pro-B Natriuret Pep Total Protein Albumin Globulin Albumin/Globulin Ratio Triglycerides 59 Cholesterol 89 L LDL Cholesterol, Calc 45 HDL Cholesterol 32 L Lipase Procalcitonin TSH Free T4 Urine Color Urine Appearance Urine pH Ur Specific [place] Urine Protein Urine Glucose (UA) Urine Ketones Urine Occult Blood Urine Nitrate Urine Bilirubin Urine Urobilinogen Ur Leukocyte Esterase Urine RBC Urine WBC Urine Bacteria Granular Casts Ur Culture Indicated? Ethyl Alcohol SARS-CoV-2 (PCR) Influenza A (RT-PCR) Influenza B (RT-PCR) RSV (PCR) 07/27/22 07/27/22 07/27/22 05:37 05:37 05:37 WBC RBC Hgb Hct MCV MCH MCHC RDW Plt Count Neut % (Auto) Lymph % (Auto) Dewitt % (Auto) Eos % (Auto) Baso % (Auto) Neut # (Auto) Lymph # (Auto) Dewitt # (Auto) Eos # (Auto) Baso # (Auto) PT INR APTT Sodium Potassium Chloride Carbon Dioxide BUN Creatinine Estimated GFR BUN/Creatinine Ratio Glucose Lactate Calcium Magnesium Total Bilirubin AST ALT Alkaline Phosphatase Total Creatine Kinase CK-MB (CK-2) CK-MB (CK-2) Rel Index Troponin I 0.031 C-Reactive Protein 5.0 H NT-Pro-B Natriuret Pep Total Protein Albumin Globulin Albumin/Globulin Ratio Triglycerides Cholesterol LDL Cholesterol, Calc HDL Cholesterol Lipase Procalcitonin TSH 1.51 Free T4 1.54 Urine Color Urine Appearance Urine pH Ur Specific [place] Urine Protein Urine Glucose (UA) Urine Ketones Urine Occult Blood Urine Nitrate Urine Bilirubin Urine Urobilinogen Ur Leukocyte Esterase Urine RBC Urine WBC Urine Bacteria Granular Casts Ur Culture Indicated? Ethyl Alcohol SARS-CoV-2 (PCR) Influenza A (RT-PCR) Influenza B (RT-PCR) RSV (PCR) [facility] Medical History Arthritis Chronic headache Coronary artery disease Do not resuscitate Essential hypertension Facet arthropathy, lumbar History of heart attack Idiopathic polyneuropathy Lumbar stenosis Medicare annual wellness visit, initial Menieres disease Mixed hyperlipidemia Subdural hematoma, acute (~02/19/20) Surgical History History of lumbar laminectomy Stented coronary artery (~2012) Family History Father Cancer Brother Cancer Hypertension Social History household members: spouse Smoking Status: Never smoker alcohol intake: former Discharge Plan Discharge Plan Patient Disposition: Home Provider Discharge Comment: You were admitted to the hospital with flu and new diagnosis of atrial fibrillation. Echocardiogram was normal appearing. Continue aspirin for now, discuss possibly starting Apixaban in the near future with your PCP. Discharge orders & Medications Prescriptions: New benzonatate 100 mg Capsule 100 mg PO TID PRN (Reason: Cough) 5 Days Qty: 15 0RF metoprolol succinate 50 mg tablet extended release 24 hr 50 mg PO BID 30 Days Qty: 60 0RF oseltamivir 75 mg capsule 75 mg PO BID 5 Days Qty: 10 0RF Continued multivitamin Tablet 1 tab PO DAILY Qty: 0 ascorbic acid (vitamin C) [Vitamin C] 1,000 mg Tablet 1,000 mg PO DAILY Qty: 0 omega 2-rfq-tog-fish oil [Fish Oil] 1,200 (144-216) mg Capsule 1 cap PO BID Qty: 0 atorvastatin [Lipitor] 40 MG tablet 40 mg PO HS Qty: 30 2RF losartan 50 MG tablet 50 mg PO BID Qty: 0 aspirin 81 mg Tablet,Delayed Release (Dr/Ec) 81 mg PO DAILY Qty: 0 fluticasone propionate 50 mcg/actuation spray,suspension 2 spray NASAL DAILY PRN (Reason: Seasonal Allergies) Qty: 16 3RF nortriptyline 25 mg capsule 25 mg PO DAILY Qty: 90 1RF alpha lipoic acid 300 mg capsule 600 mg PO DAILY duloxetine 20 mg capsule,delayed release(DR/EC) 60 mg PO DAILY Qty: 270 3RF cholecalciferol (vitamin D3) [Vitamin D3] 25 mcg (1,000 unit) Tablet 25 mcg PO DAILY ipratropium bromide 0.03 % spray,non-aerosol 2 spray NASAL BID-TID PRN (Reason: seasonal allergies) diphenhydramine-acetaminophen [Tylenol PM Extra Strength] 25-500 mg tablet 1 tab PO BEDTIME Discontinued metoprolol tartrate 50 mg tablet 50 mg PO DAILY Follow up/Referrals: Titi Segal MD [Primary Care Provider] - Diet/Activity/Treatments Diet: Diet as Tolerated Activity: As tolerated Visit Report/Discharge Packet Instructions: DI for Atrial Fibrillation Discharge Data Primary Care Provider: Titi Segal V Attending Provider: David Lopez
--- NOTE | 2022-07-27 15:54 | CM.DANOTE ---
Initial DCP Assessment Note Pt is an 87 yo male, resident [facility], arrives Flu+ with SOB and weakness. PCP: Titi Segal Payer: [employer] Reviewed chart, pt discussed in multidisciplinary rounds this morning. Patient discharged home today, PT has cleared for return home. Patient ambulating and eager to return home, plans to drive himself home No barriers identified at this time to patient's safe discharge home w/family to assist; close outpatient f/u recommended. VERONICA Medina Discharge Planning/Care Management Advanced directive, confirm from FAMILY Start: 07/27/22 03:20 Freq: Q24H Status: Active Protocol: Document 07/27/22 09:10 BT (Rec: 07/27/22 09:12 BT [id number]) Advance Directive, confirm on record Time 09:10 Person contacted pt Copy received No CM Discharge Assessment Start: 07/27/22 15:49 Freq: Status: Active Protocol: Document 07/27/22 15:49 [email or web address] (Rec: 07/27/22 15:54 [id number]) Discharge Planning Assessment Assigned Armored Truck Driver VERONICA Hagen DPOA/Assigned Designee Name Marbella Ross, spouse Contact Information [phone] Advance Directives? Yes Advance Directives on File Yes: at Dr office History Provided By Patient Prior Living Arrangements House Household Members spouse Type of transporation used prior to Drives own vehicle admit Independent with ADL's Yes Is patient alert and oriented? Yes Barriers to Discharge No Comment Home w/spouse to recover, both are Flu+. PT= SBA, cleared for home, no hx of HH no need for HH Discharge Plan Home Transportation Arrangement patient plans to drive himself Referrals Initiated None needed
--- NOTE | 2022-07-27 16:11 | OT.IPNOTE ---
Pt being discharged and already dressed to go home. No OT needed.
== END 2022-07-27 16:10 | disposition home or self-care (01) ==
LOC: ED 19:23 → AC 19:24
PROVIDERS: Nurse Practitioner Family; Admitting Provider Internal Medicine; Emergency Provider Emergency Medicine; PCP Internal Medicine; Visit Provider Internal Medicine
DX: I48.91 Unspecified atrial fibrillation (principal); I5A Non-ischemic myocardial injury (non-traumatic); J10.1 Influenza due to other identified influenza virus with other respiratory manifestations; I10 Essential (primary) hypertension; E78.2 Mixed hyperlipidemia; F32.A Depression, unspecified; R51.9 Headache, unspecified; I25.10 Atherosclerotic heart disease of native coronary artery without angina pectoris; Z95.818 Presence of other cardiac implants and grafts; I25.2 Old myocardial infarction; Z20.822 Contact with and (suspected) exposure to COVID-19
CPT/HCPCS: 0241U; 36415; 71045; 80048; 80053; 80061; 80320; 81001; 82550; 82553; 83605; 83690; 83735; 83880; 84145; 84439; 84443; 84484; 85025; 85610; 85730; 86140; 87040; 93005; 93306; 96361; 96374; 96375; 97161; 99284; G0378

== ENCOUNTER → 2022-08-19 17:33 | Outpatient (CLI) | payer MEDICARE, OTHER, SELFPAY ==
[2022-07-27 03:13] VITALS: BMI 26.3
[2022-08-19 18:00] LABS: Appearance Urine UA CLEAR; Bilirubin Urine UA NEGATIVE (NEGATIVE); Color Urine UA YELLOW; Glucose Urine UA NEGATIVE (Negative); Ketones Urine UA NEGATIVE (NEGATIVE); Leukocyte Esterase Urine UA NEGATIVE (NEGATIVE); Nitrite Urine UA NEGATIVE (Negative); Occult Blood Urine UA TRACE-INTACT (Negative); Protein Urine UA NEGATIVE (Negative); Specific Gravity Urine UA 1.015 (1.000-1.035); Urobilinogen Urine UA 0.2 E.U./dL (0.2); pH Urine UA 6.5 (4.5-8.0)
[2022-08-19 18:15] LABS: Bacteria Urine None Seen; Culture Indicated Urine Cult Not Indicated; RBC Urine 1-5/HPF (0-5/HPF); WBC Urine None Seen (0-5/HPF)
== END ==
PROVIDERS: PCP Internal Medicine; Referring Provider Internal Medicine; Visit Provider Internal Medicine
DX: N39.0 Urinary tract infection, site not specified (principal)
CPT/HCPCS: 81001

== ENCOUNTER → 2022-11-11 08:14 | Outpatient (CLI) | payer MEDICARE, OTHER, SELFPAY ==
[2022-10-28 12:50] VITALS: BMI 26.3
[2022-11-11 10:23] LABS: Alanine Aminotransferase 18 IU/L (<50); Albumin 3.8 g/dL (3.5-5.0); Albumin Globulin Ratio 1.3 (1.0-2.8); Alkaline Phosphatase 46 U/L (38-126); Aspartate Aminotransferase 24 IU/L (17-59); BUN Creatinine Ratio 15.7 (6-22); Bilirubin Total 0.4 mg/dL (0.2-1.3); Blood Urea Nitrogen 11 mg/dL (9-20); Calcium 8.5 mg/dL (8.4-10.2); Carbon Dioxide 29 mmol/L (22-32); Chloride 103 mmol/L (98-107); Estimated Glomerular Filt Rate > 60 mL/min (>60); Glucose 93 mg/dL (80-110); HEMOLYSIS < 15 (0-50); Potassium 3.8 mmol/L (3.4-5.1); Sodium 139 mmol/L (137-145); Total Protein 6.8 g/dL (6.3-8.2)
[2022-11-13 10:19] LABS: Cholesterol, Total 117 mg/dL (100-199); HDL-Cholesterol 48 mg/dL (>39); HDL-Particle (Total) 33.9 umol/L (>=30.5); LDL Particle 534 nmol/L (<1000); LDL Size 19.9 nm (>20.5); LDL-Cholsterol 54 mg/dL (0-99); LP-IR Score 45 (<=45); Small LDL- Particle 283 nmol/L (<=527); Triglycerides 70 mg/dL (0-149)
== END ==
PROVIDERS: PCP Internal Medicine; Referring Provider Specialist; Visit Provider Specialist
DX: E78.2 Mixed hyperlipidemia (principal)
CPT/HCPCS: 36415; 80053; 80061; 83704

== ENCOUNTER → 2023-03-03 11:01 | Outpatient (CLI) | payer MEDICARE, OTHER, SELFPAY ==
[2022-10-28 12:50] VITALS: BMI 26.3
== END ==
PROVIDERS: Family Provider Internal Medicine; PCP Internal Medicine; Referring Provider Physical Medicine & Rehabilitation; Visit Provider Physical Medicine & Rehabilitation
DX: G60.9 Hereditary and idiopathic neuropathy, unspecified (principal); Z98.890 Other specified postprocedural states
CPT/HCPCS: 95886; 95910

== ENCOUNTER → 2023-03-04 08:12 | Outpatient (CLI) | payer MEDICARE, OTHER, SELFPAY ==
[2022-10-28 12:50] VITALS: BMI 26.3
[2023-03-04 08:54] LABS: Alanine Aminotransferase 19 IU/L (<50); Albumin 3.8 g/dL (3.5-5.0); Albumin Globulin Ratio 1.4 (1.0-2.8); Alkaline Phosphatase 48 U/L (38-126); Aspartate Aminotransferase 28 IU/L (17-59); BUN Creatinine Ratio 16.7 (6-22); Bilirubin Total 0.5 mg/dL (0.2-1.3); Blood Urea Nitrogen 13 mg/dL (9-20); Calcium 8.4 mg/dL (8.4-10.2); Carbon Dioxide 29 mmol/L (22-32); Chloride 102 mmol/L (98-107); Estimated Glomerular Filt Rate > 60 mL/min (>60); Globulin 2.7 g/dL (1.7-4.1); Glucose 94 mg/dL (80-110); HEMOLYSIS < 15 (0-50); Magnesium 2.1 mg/dL (1.6-2.3); Sodium 137 mmol/L (137-145); Total Protein 6.5 g/dL (6.3-8.2)
[2023-03-04 09:27] LABS: Thyroid Stimulating Hormone 0.225 uIU/mL (0.47-4.68)
== END ==
PROVIDERS: Family Provider Internal Medicine; PCP Internal Medicine; Referring Provider Specialist; Visit Provider Specialist
DX: I47.1 Supraventricular tachycardia (principal); I44.1 Atrioventricular block, second degree; I44.0 Atrioventricular block, first degree; I10 Essential (primary) hypertension; E78.2 Mixed hyperlipidemia
CPT/HCPCS: 36415; 80053; 83735; 84443

== ENCOUNTER 2023-05-17 14:30 | Outpatient (CLI) | payer MEDICARE, OTHER, SELFPAY ==
[2023-03-08 10:43] VITALS: BMI 26.3
[2023-05-17] VITALS (9 sets, daily range): BP systolic 139–175; BP diastolic 67–84; PULSE 60–170; RESP 14–21; TEMP 36; O2SAT 95–98
--- NOTE | 2023-05-17 14:31 | DI.RAD.S_ITS ---
PROCEDURE: PAIN L/S TRANSFORAM INJECT ALVERTO COMPARISON: [facility], XA, PAIN L/S TRANSFORAMINAL INJECT, 02/02/2022, 14:33. [facility], MR, MR LUMBAR SPINE WO CON, 01/18/2022, 9:14. INDICATIONS: SPONDYLOSIS Fluoroscopic spot filming was performed to verify placement of spinal needles on both sides at the L5-S1 level, as labeled on the films. Appropriate location of the needle tips was confirmed by injection of iodinated contrast. IMPRESSION: Intraprocedural examination demonstrating appropriate positions of the needles. Dictated by: Kilo Enciso M.D. on 05/17/2023 at 18:55 Approved by: Kilo Enciso M.D. on 05/17/2023 at 18:56
[2023-05-17] MEDS: MIDAZOLAM 2 MG/2 ML VIAL IV (15:39)
[2023-05-17] MEDS: BUPIVACAINE 0.25% (PF) VIAL 2 ML INJ (15:46)
[2023-05-17] MEDS: BETAMETHASONE 30 MG/5 ML MDV 12 MG INJ (15:47)
[2023-05-17] MEDS: iopamidoL 15 ML VIAL 3 ML INJ (15:47)
[2023-05-17] MEDS: DEXAMETHASONE 10 MG/ML VIAL 20 MG INJ (15:47)
--- NOTE | 2023-05-17 16:05 | PM.PROC.IR.1 ---
Date/Time/Diagnoses Date of procedure: 05/17/23 Time of procedure: 16:06 Pre-procedure diagnosis: 1. FORAMINAL STENOSIS WITH LE SYMPTOMS Post-procedure diagnosis: same Procedure Notes Procedure: 1. FLUOROSCOPICALLY GUIDED CONTRAST CONTROLLED TRANSFORAMINAL EPIDURAL STEROID INJECTION - BILATERAL L5/S1 TFESI Indications: Ar is referred by Dr. Segal for treatment of Foraminal Stenosis with bilateral LE Symptoms Physician: Stan Renteria Total Fluoroscopy time (seconds): 26 Total sedation minutes: 20 Complications: none Procedure in detail & Post-procedure care: FINDINGS Foraminal Nerve Root Compression secondary to disc disease and facet hypertrophy DESCRIPTION OF PROCEDURE Following review of allergy and review of potential side effects and complications, including, but not necessarily limited to, infection, allergic reaction, local tissue breakdown, stroke, temporary or permanent nerve injury, paralysis, and possible , the patient indicated that the patient understood and agreed to proceed. An informed consent document was signed by the patient, witnessed by a nurse, and placed in the patient's chart. Additionally, other treatment options including medications, modalities, and physical therapy were reviewed with the patient. After review of previous anaesthesic history and IV conscious sedation the patient was deemed safe to proceed with today?s procedure with IV conscious sedation as ASA class II designation. Safety time-out was performed to confirm patient ID, procedure to be performed and site of procedure. IV sedation was accomplished with a combination of 2mg of Versed was administered by the RN after DO order, titrated to patient comfort during the course of the procedure while the patient remained responsive to all verbal commands In the prone position following sterile prep and drape of the lumbar region, the right L5/S1 posterior neuroforamen was identified fluoroscopically. The skin was anesthetized via a 25-gauge 1.5-inch needle with 1% lidocaine solution. At this point, a 25-gauge 3.5-inch spinal needle was atraumatically introduced and advanced under fluoroscopic guidance through the posterior right L5/S1 neuroforamen to approximately the anterior aspect of the canal. Depth was confirmed on lateral view. Following negative aspiration, injection of approximately 1.5cc of Isovue 200 under live fluoroscopy in the AP view confirmed excellent flow along the nerve root, into the epidural space without vascular or intrathecal uptake observed Radiological data, including multiple fluoroscopic views of the lumbosacral spine, reveal a spinal needle at the right L5/S1 posterior neuroforamen. Subsequent views show flow of contrast material flowing superiorly and inferiorly along the nerve root confirming epidural flow. Subsequently, a test dose of 1.5cc of 1% lidocaine solution was administered and patient was observed for two minutes for signs or symptoms of complications, including abdominal pain, shortness of breath, bilateral upper or lower extremity weakness, nausea and vomiting, prior to steroid injection. At this point, a total of 2cc or 10mg of dexamethasone and 6mg betamethasone was injected without incident. Attention was then refocused to the left L5/S1 level where the identical procedure was replicated. The procedure tolerated the procedure well without signs or symptoms of complications prior to transfer to the recovery area continued monitoring without incident. The patient was then transferred to the recovery area where they were observed for an appropriate time after the injection. The patient reported a VAS score of 7 prior to the procedure and a post-procedure VAS of 1. POST OP INSTRUCTIONS The patient was provided a Pain Log to continue to record their response to the target-specific procedure prior to follow-up visit with their referring physician. Additionally, specific post-injection care instructions and a contact number to our office were provided if concerns arise regarding possible complications associated with the procedure are suspected.
== END 2023-05-17 16:19 | disposition home or self-care (01) ==
PROVIDERS: Family Provider Internal Medicine; PCP Internal Medicine; Referring Provider Physical Medicine & Rehabilitation; Visit Provider Physical Medicine & Rehabilitation
DX: M48.07 Spinal stenosis, lumbosacral region; M51.17 Intervertebral disc disorders with radiculopathy, lumbosacral region; M47.27 Other spondylosis with radiculopathy, lumbosacral region
CPT/HCPCS: 64483; 64494; 99152; J0702; J1100; J2250; J3490

== ENCOUNTER → 2023-09-14 08:13 | Outpatient (CLI) | payer MEDICARE, OTHER, SELFPAY ==
[2023-03-08 10:43] VITALS: BMI 26.3
[2023-09-14 10:18] LABS: Alanine Aminotransferase 15 IU/L (<50); Albumin 3.8 g/dL (3.5-5.0); Albumin Globulin Ratio 1.3 (1.0-2.8); Alkaline Phosphatase 45 U/L (38-126); Aspartate Aminotransferase 23 IU/L (17-59); BUN Creatinine Ratio 12.5 (6-22); Bilirubin Total 0.6 mg/dL (0.2-1.3); Blood Urea Nitrogen 10 mg/dL (9-20); Calcium 8.9 mg/dL (8.4-10.2); Carbon Dioxide 28 mmol/L (22-32); Chloride 103 mmol/L (98-107); Estimated Glomerular Filt Rate > 60 mL/min (>60); Globulin 2.9 g/dL (1.7-4.1); Glucose 97 mg/dL (80-110); HEMOLYSIS < 15 (0-50); Sodium 139 mmol/L (137-145); Total Protein 6.7 g/dL (6.3-8.2)
[2023-09-18 06:08] LABS: Cholesterol, Total 114 mg/dL (100-199); HDL-Cholesterol 43 mg/dL (>39); HDL-Particle (Total) 27.4 umol/L (>=30.5); Historical Reading Comment: (.); LDL Particle 554 nmol/L (<1000); LDL Size 20.6 nm (>20.5); LDL-Cholsterol 54 mg/dL (0-99); LP-IR Score 43 (<=45); Small LDL- Particle 199 nmol/L (<=527); Triglycerides 86 mg/dL (0-149)
== END ==
LOC: LAB 08:14
PROVIDERS: Family Provider Internal Medicine; PCP Internal Medicine; Referring Provider Specialist; Visit Provider Specialist
DX: E78.2 Mixed hyperlipidemia (principal); I10 Essential (primary) hypertension
CPT/HCPCS: 36415; 80053; 80061; 83704; 83735

== ENCOUNTER → 2023-12-16 11:13 | Outpatient (CLI) | payer MEDICARE, OTHER, SELFPAY ==
[2023-03-08 10:43] VITALS: BMI 26.3
[2023-12-16 12:23] LABS: Hematocrit 28.6 % (41-53); Hemoglobin 8.9 g/dL (13.5-17.5); Mean Corpuscular HGB Conc 31.1 % (30-36); Mean Corpuscular Hemoglobin 22.9 PG (26-34); Mean Corpuscular Volume 73.7 fL (80-100); Platelet Count 124 X10^3/uL (150-400); Red Blood Cell Count 3.88 X10^6/uL (4.5-5.9); Red Cell Distribution Width 16.1 % (11.6-14.8); White Blood Cell Count 5.8 X10^3/uL (4.5-11.0)
[2023-12-16 13:06] LABS: Alanine Aminotransferase 14 IU/L (<50); Albumin Globulin Ratio 1.7 (1.0-2.8); Alkaline Phosphatase 49 U/L (38-126); Aspartate Aminotransferase 21 IU/L (17-59); BUN Creatinine Ratio 14.5 (6-22); Bilirubin Total 0.5 mg/dL (0.2-1.3); Blood Urea Nitrogen 11 mg/dL (9-20); Calcium 8.5 mg/dL (8.4-10.2); Carbon Dioxide 28 mmol/L (22-32); Chloride 106 mmol/L (98-107); Estimated Glomerular Filt Rate > 60 mL/min (>60); Globulin 2.3 g/dL (1.7-4.1); Glucose 102 mg/dL (80-110); HEMOLYSIS < 15 (0-50); Potassium 4.3 mmol/L (3.4-5.1); Sodium 138 mmol/L (137-145); Total Protein 6.3 g/dL (6.3-8.2)
[2023-12-16 13:31] LABS: TSH w/ Reflex to FT4 0.19 uIU/mL (0.47-4.68)
[2023-12-16 14:42] LABS: Free T4, Direct Thyroxine 0.96 ng/dL (0.78-2.19)
== END ==
PROVIDERS: Family Provider Internal Medicine; PCP Internal Medicine; Referring Provider Internal Medicine; Visit Provider Internal Medicine
DX: I48.0 Paroxysmal atrial fibrillation (principal)
CPT/HCPCS: 36415; 80053; 84439; 84443; 85027

== ENCOUNTER → 2024-01-04 07:41 | Outpatient (CLI) | payer MEDICARE, OTHER, SELFPAY ==
[2023-03-08 10:43] VITALS: BMI 26.3
[2024-01-04 09:25] LABS: Alanine Aminotransferase 15 IU/L (<50); Albumin Globulin Ratio 1.7 (1.0-2.8); Alkaline Phosphatase 49 U/L (38-126); Aspartate Aminotransferase 24 IU/L (17-59); BUN Creatinine Ratio 15.8 (6-22); Bilirubin Total 0.5 mg/dL (0.2-1.3); Blood Urea Nitrogen 12 mg/dL (9-20); Calcium 7.9 mg/dL (8.4-10.2); Carbon Dioxide 28 mmol/L (22-32); Chloride 106 mmol/L (98-107); Estimated Glomerular Filt Rate > 60 mL/min (>60); Globulin 2.3 g/dL (1.7-4.1); Glucose 97 mg/dL (80-110); HEMOLYSIS < 15 (0-50); Magnesium 2.3 mg/dL (1.6-2.3); Potassium 4.1 mmol/L (3.4-5.1); Sodium 141 mmol/L (137-145); Total Protein 6.3 g/dL (6.3-8.2)
[2024-01-04 10:00] LABS: Thyroid Stimulating Hormone 1.71 uIU/mL (0.47-4.68)
== END ==
PROVIDERS: Family Provider Internal Medicine; PCP Internal Medicine; Referring Provider Specialist; Visit Provider Specialist
DX: I48.0 Paroxysmal atrial fibrillation (principal); R42 Dizziness and giddiness; R55 Syncope and collapse; I10 Essential (primary) hypertension
CPT/HCPCS: 36415; 80053; 83735; 84443

== ENCOUNTER → 2024-01-19 06:44 | Outpatient (CLI) | payer MEDICARE, OTHER, SELFPAY ==
[2023-03-08 10:43] VITALS: BMI 26.3
--- NOTE | 2024-01-19 06:45 | DI.ECHO.S_ITS ---
[facility] : : [address] : : [place] : : [id number] : : Phone: [phone] Echocardiogram Report + + :Name: DARIAN LERNER Study Date: 01/19/2024 Height: 74 in : :[facility] ReadingLocation: Weight: 220 lb : : Gender: Male BSA: 2.3 m2 : :: 1935 Age: 88 yrs BP: 135/76 mmHg: :Reason For Study: DYSPNEA : :Ordering Physician: ANKITA, : :MILAGROS Performed By: Savana Valenzuela : :Referring: MILAGROS LUCIANO : + + Interpretation Summary Left ventricular systolic function remains normal with an estimated ejection fraction of 55 to 60% without any focal wall motion abnormality and appears slightly less dynamic compared to the previous study but otherwise unchanged. Diastolic function is likely normal with normal filling pressures that are also likely unchanged. The right ventricle is at the upper limits of normal in size with normal systolic function and appears slightly larger and slightly less dynamic compared to the previous study. Right ventricular systolic pressure is likely around 29 mmHg with a CVP of 3 mmHg, and is possibly slightly higher compared to the previous exam. Both atria are normal in size and slightly smaller compared to the previous study. There is mild tricuspid regurgitation that remains unchanged but no other significant valvular abnormality. The patient was in sinus rhythm at 59 to 67 bpm which is slower compared to the previous exam when he was in the 80-90 bpm range, occasionally up to 115 bpm. Procedure: A two-dimensional transthoracic echocardiogram with color flow and Doppler was performed. The study quality was technically adequate. Comparison is made with the echocardiogram of 07/27/2022. The patient was in sinus rhythm with heart rates between 59-67 bpm during the exam. Left Ventricle: The left ventricle appears normal in size, wall thickness, and systolic function without any focal wall motion abnormalities. The estimated left ventricular end diastolic volume is 85 ml. The ejection fraction is estimated to be 55-60%. This is slightly less dynamic compared to the previous study. Diastolic parameters suggest probable normal left ventricular diastolic function and normal filling pressures. This is unchanged compared to the previous study. Right Ventricle: The right ventricle is at the upper limits of normal in size. The right ventricular systolic function is normal. This is slightly larger and slightly less dynamic compared to the previous study. Atria: Both atria are normal in size. Both atria have mildly decreased in size since the prior echo exam. The interatrial septum grossly appears intact with no obvious evidence for an atrial septal defect. There is no Doppler evidence for an interatrial shunt. Mitral Valve: The mitral valve leaflets appear borderline thickened, but open well. There is trace mitral regurgitation. This is unchanged compared to the previous study. Aortic Valve: The aortic valve is trileaflet. The aortic valve is slightly calcified. The aortic valve opens well. There is no aortic valve stenosis. There is trace aortic regurgitation. Tricuspid Valve: The tricuspid valve is normal in structure and function. There is mild tricuspid regurgitation. This is unchanged compared to the previous study. The right ventricular systolic pressure is estimated to be at least 29 mmHg based on an estimated right atrial pressure of 3 mm Hg. This is possibly slightly higher compared to the previous study. Pulmonic Valve: The pulmonic valve leaflets are thin and pliable; valve motion is normal. There is trace pulmonic regurgitation. Great Vessels: The aortic root is normal size. The dimensions of the ascending aorta are normal. The aortic arch is normal in size. The IVC is of normal diameter and collapses greater than 50% with a sniff. This suggests a low right atrial pressure of 3 mm Hg. Pericardium/ Pleura There is no pericardial effusion. There is no pleural effusion. MMode/2D Measurements & Calculations LVIDd: 4.9 cm LVOT diam: 2.2 cm LVIDs: 3.6 cm Ao root diam: 3.2 cm FS: 26.4 % asc Aorta Diam: 3.5 cm IVSd: 1.1 cm Ao Arch Diam (Prox Trans): 2.9 cm LVPWd: 1.1 cm LV tamayo. diameter/BSA (cm/m^2): 2.2 LV sys. diameter/BSA (cm/m^2): 1.6 LA A2 area: 26.1 cm2 RA long axis: 5.0 cm LA A4 area: 16.7 cm2 RA area: 16.5 cm2 LA length (vol): 5.0 cm RA vol: 45.9 ml LA vol: 73.8 ml RA : 20.3 ml/m2 LA vol index: 32.6 ml/m2 IVC diam: 1.5 cm RVD1 (basal): 3.8 cm TAPSE: 1.9 cm Doppler Measurements & Calculations Ao V2 max: 129.9 cm/sec LVOT Max Joey: 77.3 cm/sec Ao V2 mean: 86.2 cm/sec LV V1 max P.4 mmHg Ao max P.8 mmHg LV V1 VTI: 19.3 cm Ao mean P.4 mmHg OSCAR(I,D): 2.4 cm2 Ao V2 VTI: 30.2 cm OSCAR(V,D): 2.2 cm2 sev ratio: 0.64 OSCAR indexed to BSA (cm^2/m^2): 1.1 MV E max joey: 60.1 cm/sec TR max joey: 256.2 cm/sec MV A max joey: 76.9 cm/sec TR max P.3 mmHg MV E/A: 0.78 PA V2 max: 106.9 cm/sec Med Peak E' Joey: 6.3 cm/sec PA V2 mean: 75.4 cm/sec E/E' med: 9.6 PA mean P.5 mmHg Lat Peak E' Joey: 7.5 cm/sec PA pr(Accel): 32.8 mmHg E/E' lat: 8.0 E/e' average: 8.8 MV dec time: 0.25 sec SV(LVOT): 72.1 ml Reading Physician:12:35 PM
== END ==
LOC: ECHO 06:45
PROVIDERS: Family Provider Internal Medicine; PCP Internal Medicine; Referring Provider Specialist; Visit Provider Specialist
DX: I07.1 Rheumatic tricuspid insufficiency (principal); R06.09 Other forms of dyspnea
CPT/HCPCS: 93306

== ENCOUNTER → 2024-02-10 11:26 | Outpatient (CLI) | payer MEDICARE, OTHER, SELFPAY ==
[2023-03-08 10:43] VITALS: BMI 26.3
--- NOTE | 2024-02-10 11:28 | DI.RAD.S_ITS ---
PROCEDURE: XR LUMBAR SPINE MIN 4V INDICATIONS: BACK PAIN TECHNIQUE: 5 views of the lumbar spine were acquired, including bilateral oblique views. COMPARISON: None. FINDINGS: Bones: 5 nonrib-bearing vertebrae are present. Moderate degenerative changes in the lumbar spine. Disc space height loss most pronounced at L4-L5 and L5-S1. Small vertebral body osteophytes. Lower lumbar spine facet joint hypertrophy. There is normal bony alignment. No vertebral body compression fractures. No suspicious bony lesions. Moderate bilateral hip DJD. Soft tissues: Overlying bowel gas pattern is normal. No suspicious soft tissue calcifications. Oblique images: No pars defects. IMPRESSION: No compression fracture. Moderate degenerative changes in the lumbar spine. Dictated by: Conrado Jovel M.D. on 02/10/2024 at 12:23 Approved by: Conrado Jovel M.D. on 02/10/2024 at 12:25
== END ==
PROVIDERS: Family Provider Internal Medicine; PCP Internal Medicine; Referring Provider Physical Medicine & Rehabilitation; Visit Provider Physical Medicine & Rehabilitation
DX: M47.26 Other spondylosis with radiculopathy, lumbar region (principal); M16.0 Bilateral primary osteoarthritis of hip
CPT/HCPCS: 72110

== ENCOUNTER → 2024-02-24 09:09 | Outpatient (CLI) | payer MEDICARE, OTHER, SELFPAY ==
[2023-03-08 10:43] VITALS: BMI 26.3
--- NOTE | 2024-02-24 | DI.NM.S_ITS ---
PROCEDURE: NM BRIDGETT PERF SPECT REST & STR Rest and exercise myocardial perfusion SPECT with gated imaging and ejection fraction RADIOPHARMACEUTICAL: 25.4 mCi Tc-99m sestamibi IV at rest and 26.7 mCi Tc-99m sestamibi IV at peak exercise. A 2 day-protocol was performed. INDICATIONS: atypical chest pain, dyspnea on exertion PQRS ATTESTATIONS: Measure 322 - Is this imaging test primarily performed on a low-risk surgery patient for preoperative evaluation within 30 days preceding their low-risk non-cardiac surgery? Low-risk surgery is defined as cardiac or myocardial infarction less than 1%, including (but not limited to) endoscopic procedures, superficial procedures, cataract surgery, and excisional breast surgery: Answer: No Measure 323 - Is this imaging test performed primarily for the monitoring of an asymptomatic patient who had percutaneous coronary intervention on the visit date or within 2 years of the visit date? Answer: No Measure 324 - Is this imaging test performed primarily for the initial detection and risk assessment on an asymptomatic, low coronary heart disease patient? Low CHD risk definition = clinicians should consider the maximum number of available patient factors used to estimate risk based on Mercer (ATP III criteria), typically age, gender, diabetes, smoking status, and use of blood pressure medication, and integrate age appropriate estimates for missing elements, such as LDL or standard blood pressure. Answer: No TECHNIQUE: Radiopharmaceutical was injected at peak stress test, and also at rest. SPECT images were obtained. SPECT myocardial perfusion images were displayed in short axis, horizontal long axis, and vertical long axis views. Gated images were reviewed using [employer] software. COMPARISON: None. CARDIAC STRESS: A standard Juan R treadmill exercise tolerance test was performed by the patient under the supervision of an attending staff. The patient exercised for 6 minutes and 5 seconds; functional aerobic impairment (LORELEI) is -41%. Hemodynamic data: There is normal blood pressure and heart rate response to exercise stress. Patient achieved 102% of maximum predicted heart rate at peak exercise. Symptoms: Patient denied chest pain during exercise. EKG: Horizontal ST depression in the anterior precordial leads noted at 4 minutes 32 seconds during the stress phase. ST normalization occurred at 3 minutes into recovery. No arrhythmias noted. FINDINGS: Raw data: There is good myocardial labeling by radiotracer. No significant motion artifacts. Qyoj-xn-upxue ratio is 0.21 (normal is less than 0.38 for sestamibi tracer, and less than 0.50 for thallium tracer). Left ventricle function: Gated images demonstrate normal left ventricle wall thickening. No segmental wall motion abnormality. No transient ischemic dilation; TID is 0.91 (normal less than 1.3). The left ventricle resting end-diastolic volume is 113 mL. Left ventricle stress ejection fraction is 68%; normal values are above 45%. Myocardial perfusion: Mild hypoperfusion noted in the inferior segment on both the stress and rest images. This perfusion defect was no longer present with prone imaging. No other perfusion defects noted. This is most likely due to diaphragmatic attenuation. IMPRESSION: Negative exercise myocardial perfusion scan in terms of ischemia nor infarction. No significant changes when compared with previous exercise myocardial perfusion scan dated 11/24/2020. Dictated by: Lupillo Fajardo M.D. on 02/29/2024 at 16:42 Approved by: Lupillo Fajardo M.D. on 02/29/2024 at 16:48
== END ==
PROVIDERS: Family Provider Internal Medicine; PCP Internal Medicine; Referring Provider Specialist; Visit Provider Specialist
DX: R07.89 Other chest pain (principal); R06.09 Other forms of dyspnea
CPT/HCPCS: 78452; 93016; 93017; 93018; A9502

== ENCOUNTER 2024-03-08 13:17 | Outpatient (CLI) | payer MEDICARE, OTHER, SELFPAY ==
[2023-03-08 10:43] VITALS: BMI 26.3
[2024-03-08] VITALS (10 sets, daily range): BP systolic 97–160; BP diastolic 52–77; PULSE 50–81; RESP 17–20; TEMP 36.7; O2SAT 96–100
--- NOTE | 2024-03-08 14:00 | DI.RAD.S_ITS ---
PROCEDURE: PAIN L/S TRANSFORAM INJECT ALVERTO COMPARISON: [facility], XA, PAIN L/S TRANSFORAM INJECT ALVERTO, 05/17/2023, 15:42. INDICATIONS: Bilateral L3-4 transforaminal ROBERT FINDINGS: 4 intraoperative fluoroscopic images shows injection needles placed at bilateral L3-4 levels as labeled on the images. IMPRESSION: Fluoro guidance was provided intraoperatively for bilateral L3-4 transforaminal ROBERT performed by the ordering physician. Dictated by: Elvis Fajardo M.D. on 03/08/2024 at 19:50 Approved by: Elvis Fajardo M.D. on 03/08/2024 at 19:50
[2024-03-08] MEDS: MIDAZOLAM 2 MG/2 ML VIAL IV (14:10)
[2024-03-08] MEDS: iopamidoL 15 ML VIAL 3 ML INJ (14:13)
[2024-03-08] MEDS: DEXAMETHASONE 10 MG/ML VIAL 20 MG INJ (14:14)
[2024-03-08] MEDS: BUPIVACAINE 0.25% (PF) VIAL 2 ML INJ (14:14)
[2024-03-08] MEDS: BETAMETHASONE 30 MG/5 ML MDV 12 MG INJ (14:15)
--- NOTE | 2024-03-08 14:26 | PC.NURSE ---
At 1420 Patient's HR dropped down to the low 50's from the low 60's (Sinus bradycardia) as Dr. Renteria was injecting medicine to the first side. Dr. Renteria notified. Patient drowsy, but talking and responding appropriately. Patient stated that he was doing ok. Patient placed in trendelenburg and Dr. Renteria paused the procedure while patient's HR increased.
--- NOTE | 2024-03-08 14:35 | P.PCN_ITS ---
Date/Time/Diagnoses Date of procedure: 03/08/24 Time of procedure: 14:35 Pre-procedure diagnosis: 1. FORAMINAL STENOSIS WITH LE SYMPTOMS Post-procedure diagnosis: same Procedure Notes Procedure: 1. FLUOROSCOPICALLY GUIDED CONTRAST CONTROLLED TRANSFORAMINAL EPIDURAL STEROID INJECTION - BILATERAL L3/4 TFESI Indications: Ar is referred by Dr. Segal for treatment of Foraminal Stenosis with bilateral LE Symptoms Physician: Stan Renteria Total Fluoroscopy time (seconds): 23 Total sedation minutes: 20 Complications: none Procedure in detail & Post-procedure care: FINDINGS Foraminal Nerve Root Compression secondary to disc disease and facet hypertrophy DESCRIPTION OF PROCEDURE Following review of allergy and review of potential side effects and complications, including, but not necessarily limited to, infection, allergic reaction, local tissue breakdown, stroke, temporary or permanent nerve injury, paralysis, and possible , the patient indicated that the patient understood and agreed to proceed. An informed consent document was signed by the patient, witnessed by a nurse, and placed in the patient's chart. Additionally, other treatment options including medications, modalities, and physical therapy were reviewed with the patient. After review of previous anaesthesic history and IV conscious sedation the patient was deemed safe to proceed with today?s procedure with IV conscious sedation as ASA class II designation. Safety time-out was performed to confirm patient ID, procedure to be performed and site of procedure. IV sedation was accomplished with a combination of 2mg of Versed was administered by the RN after DO order, titrated to patient comfort during the course of the procedure while the patient remained responsive to all verbal commands In the prone position following sterile prep and drape of the lumbar region, the right L3/4 posterior neuroforamen was identified fluoroscopically. The skin was anesthetized via a 25-gauge 1.5-inch needle with 1% lidocaine solution. At this point, a 25-gauge 3.5-inch spinal needle was atraumatically introduced and advanced under fluoroscopic guidance through the posterior right L3/4 neuroforamen to approximately the anterior aspect of the canal. Depth was confirmed on lateral view. Following negative aspiration, injection of approximately 1.5cc of Isovue 200 under live fluoroscopy in the AP view confirmed excellent flow along the nerve root, into the epidural space without vascular or intrathecal uptake observed Radiological data, including multiple fluoroscopic views of the lumbosacral spine, reveal a spinal needle at the right L3/4 posterior neuroforamen. Subsequent views show flow of contrast material flowing superiorly and inferiorly along the nerve root confirming epidural flow. Subsequently, a test dose of 1.5cc of 1% lidocaine solution was administered and patient was observed for two minutes for signs or symptoms of complications, including abdominal pain, shortness of breath, bilateral upper or lower e xtremity weakness, nausea and vomiting, prior to steroid injection. At this point, a total of 2cc or 10mg of dexamethasone and 6mg betamethasone was injected without incident. Attention was then refocused to the left L3/4 level where the identical procedure was replicated. The procedure tolerated the procedure well without signs or symptoms of complications prior to transfer to the recovery area continued monitoring without incident. The patient was then transferred to the recovery area where they were observed for an appropriate time after the injection. The patient reported a VAS score of 7 prior to the procedure and a post-procedure VAS of 0. POST OP INSTRUCTIONS The patient was provided a Pain Log to continue to record their response to the target-specific procedure prior to follow-up visit with their referring physician. Additionally, specific post-injection care instructions and a contact number to our office were provided if concerns arise regarding possible complications associated with the procedure are suspected.
== END 2024-03-08 15:05 | disposition home or self-care (01) ==
LOC: RAD 13:18
PROVIDERS: Family Provider Internal Medicine; PCP Internal Medicine; Referring Provider Physical Medicine & Rehabilitation; Visit Provider Physical Medicine & Rehabilitation
DX: M48.061 Spinal stenosis, lumbar region without neurogenic claudication (principal); M51.16 Intervertebral disc disorders with radiculopathy, lumbar region; M47.26 Other spondylosis with radiculopathy, lumbar region
CPT/HCPCS: 64483; 99152; J0702; J1100; J2250; J3490

== ENCOUNTER → 2024-06-12 08:22 | Outpatient (CLI) | payer MEDICARE, OTHER, SELFPAY ==
[2023-03-08 10:43] VITALS: BMI 26.3
[2024-06-12 09:44] LABS: Hematocrit 27.7 % (41-53); Mean Corpuscular Hemoglobin 19.7 PG (26-34); Mean Corpuscular Volume 67.8 fL (80-100); Platelet Count 96 X10^3/uL (150-400); Red Blood Cell Count 4.08 X10^6/uL (4.5-5.9); Red Cell Distribution Width 17.9 % (11.6-14.8)
[2024-06-12 09:58] LABS: Alanine Aminotransferase 20 IU/L (<50); Albumin 4.1 g/dL (3.5-5.0); Albumin Globulin Ratio 1.5 (1.0-2.8); Alkaline Phosphatase 45 U/L (38-126); Aspartate Aminotransferase 27 IU/L (17-59); Bilirubin Total 0.5 mg/dL (0.2-1.3); Blood Urea Nitrogen 12 mg/dL (9-20); Calcium 8.6 mg/dL (8.4-10.2); Carbon Dioxide 28 mmol/L (22-32); Chloride 105 mmol/L (98-107); Estimated Glomerular Filt Rate > 60 mL/min (>60); Globulin 2.7 g/dL (1.7-4.1); Glucose 101 mg/dL (80-110); HEMOLYSIS < 15 (0-50); Magnesium 2.1 mg/dL (1.6-2.3); Potassium 4.1 mmol/L (3.4-5.1); Sodium 138 mmol/L (137-145); Total Protein 6.8 g/dL (6.3-8.2)
[2024-06-14 17:09] LABS: Cholesterol, Total 111 mg/dL (100-199); HDL-Cholesterol 44 mg/dL (>39); HDL-Particle (Total) 26.9 umol/L (>=30.5); LDL Particle 519 nmol/L (<1000); LDL Size 20.8 nm (>20.5); LDL-Cholsterol 48 mg/dL (0-99); LP-IR Score 50 (<=45); Small LDL- Particle 315 nmol/L (<=527); Triglycerides 98 mg/dL (0-149)
== END ==
PROVIDERS: Family Provider Internal Medicine; PCP Internal Medicine; Referring Provider Specialist; Visit Provider Specialist
DX: E78.2 Mixed hyperlipidemia (principal); I48.0 Paroxysmal atrial fibrillation; R42 Dizziness and giddiness; R55 Syncope and collapse; R06.9 Unspecified abnormalities of breathing; R06.09 Other forms of dyspnea
CPT/HCPCS: 36415; 80053; 80061; 83704; 83735; 84443; 85027

== ENCOUNTER → 2024-06-28 14:55 | Outpatient (CLI) | payer MEDICARE, OTHER, SELFPAY ==
[2023-03-08 10:43] VITALS: BMI 26.3
[2024-06-28 15:43] LABS: Hematocrit 27.9 % (41-53); Hemoglobin 8.2 g/dL (13.5-17.5); Mean Corpuscular HGB Conc 29.3 % (30-36); Mean Corpuscular Volume 68.3 fL (80-100); Platelet Count 125 X10^3/uL (150-400); Red Blood Cell Count 4.08 X10^6/uL (4.5-5.9); White Blood Cell Count 6.1 X10^3/uL (4.5-11.0)
[2024-06-28 15:50] LABS: HEMOLYSIS < 15 (0-50); Iron 22 ug/dL (49-181)
[2024-06-28 16:03] LABS: Percent Iron Saturation 6 % (20-50); Total Iron Binding Capacity 397 ug/dL (261-462); Transferrin 336 mg/dL (206-381)
[2024-06-28 16:26] LABS: Ferritin 4 ng/mL (18-464)
[2024-06-28 16:27] LABS: TSH w/ Reflex to FT4 1.18 uIU/mL (0.47-4.68)
== END ==
LOC: LAB 14:56
PROVIDERS: Family Provider Internal Medicine; PCP Internal Medicine; Referring Provider Internal Medicine; Visit Provider Internal Medicine
DX: D50.9 Iron deficiency anemia, unspecified (principal); R79.89 Other specified abnormal findings of blood chemistry
CPT/HCPCS: 36415; 82728; 83540; 83550; 84443; 85027

== ENCOUNTER → 2024-07-02 10:56 | Outpatient (CLI) | payer MEDICARE, OTHER, SELFPAY ==
[2023-03-08 10:43] VITALS: BMI 26.3
[2024-07-04 08:36] LABS: Fecal Immunochemical Test Negative (Negative)
== END ==
LOC: LAB 10:57
PROVIDERS: Family Provider Internal Medicine; PCP Internal Medicine; Referring Provider Internal Medicine; Visit Provider Internal Medicine
DX: D50.9 Iron deficiency anemia, unspecified (principal)
CPT/HCPCS: 82274

== ENCOUNTER → 2024-09-28 11:03 | Outpatient (CLI) | payer MEDICARE, OTHER, SELFPAY ==
[2023-03-08 10:43] VITALS: BMI 26.3
[2024-09-28 12:06] LABS: Hematocrit 41.6 % (41-53); Hemoglobin 13.7 g/dL (13.5-17.5); Mean Corpuscular HGB Conc 32.8 % (30-36); Mean Corpuscular Volume 88.3 fL (80-100); Platelet Count 118 X10^3/uL (150-400); Red Blood Cell Count 4.71 X10^6/uL (4.5-5.9); Red Cell Distribution Width 19.1 % (11.6-14.8); White Blood Cell Count 5.5 X10^3/uL (4.5-11.0)
[2024-09-28 13:05] LABS: HEMOLYSIS < 15 (0-50); Iron 82 ug/dL (49-181)
[2024-09-28 13:18] LABS: Percent Iron Saturation 28 % (20-50); Total Iron Binding Capacity 294 ug/dL (261-462); Transferrin 242 mg/dL (206-381)
[2024-09-28 13:45] LABS: Ferritin 13 ng/mL (18-464)
== END ==
PROVIDERS: Family Provider Internal Medicine; PCP Internal Medicine; Referring Provider Internal Medicine; Visit Provider Internal Medicine
DX: D50.9 Iron deficiency anemia, unspecified (principal)
CPT/HCPCS: 36415; 82728; 83540; 83550; 85027

== ENCOUNTER → 2024-10-29 10:10 | Outpatient (CLI) | payer MEDICARE, OTHER, SELFPAY ==
[2023-03-08 10:43] VITALS: BMI 26.3
[2024-10-29 10:55] LABS: Add Manual Diff / Slide Review NO; Basophils Absolute Auto 0 /uL (0-100); Basophils Percent Auto 0.8 % (0-2); Eosinophils Absolute Auto 200 /uL (0-450); Eosinophils Percent Auto 3.5 % (2-4); Hematocrit 43.1 % (41-53); Hemoglobin 14.5 g/dL (13.5-17.5); Lymphocytes Absolute Auto 1700 /uL (1100-4500); Lymphocytes Percent Auto 28.7 % (25-40); Mean Corpuscular HGB Conc 33.5 % (30-36); Mean Corpuscular Hemoglobin 30.3 PG (26-34); Mean Corpuscular Volume 90.4 fL (80-100); Monocytes Absolute Auto 800 /uL (0-900); Monocytes Percent Auto 14.1 % (3-14); Neutrophils Absolute Auto 3100 /uL (1500-7000); Neutrophils Percent Auto 52.9 % (50-75); Platelet Count 122 X10^3/uL (150-400); Red Blood Cell Count 4.77 X10^6/uL (4.5-5.9); Red Cell Distribution Width 14.5 % (11.6-14.8); White Blood Cell Count 5.8 X10^3/uL (4.5-11.0)
== END ==
PROVIDERS: Surgery; Family Provider Internal Medicine; PCP Internal Medicine; Referring Provider Internal Medicine; Visit Provider Internal Medicine
DX: D50.9 Iron deficiency anemia, unspecified (principal); K40.91 Unilateral inguinal hernia, without obstruction or gangrene, recurrent
CPT/HCPCS: 36415; 85025; 99214

== ENCOUNTER → 2024-12-11 09:46 | Outpatient (CLI) | payer MEDICARE, OTHER, SELFPAY ==
[2023-03-08 10:43] VITALS: BMI 26.3
[2024-12-11 11:10] LABS: Hematocrit 43.1 % (41-53); Hemoglobin 14.5 g/dL (13.5-17.5); Mean Corpuscular HGB Conc 33.7 % (30-36); Mean Corpuscular Hemoglobin 31.6 PG (26-34); Mean Corpuscular Volume 93.7 fL (80-100); Platelet Count 119 X10^3/uL (150-400); Red Blood Cell Count 4.61 X10^6/uL (4.5-5.9); Red Cell Distribution Width 14.2 % (11.6-14.8); White Blood Cell Count 5.8 X10^3/uL (4.5-11.0)
[2024-12-11 11:25] LABS: Alanine Aminotransferase 17 IU/L (<50); Albumin 4.1 g/dL (3.5-5.0); Albumin Globulin Ratio 1.7 (1.0-2.8); Alkaline Phosphatase 48 U/L (38-126); Aspartate Aminotransferase 26 IU/L (17-59); BUN Creatinine Ratio 15.9 (6-22); Bilirubin Total 0.8 mg/dL (0.2-1.3); Blood Urea Nitrogen 11 mg/dL (9-20); Calcium 8.7 mg/dL (8.4-10.2); Carbon Dioxide 27 mmol/L (22-32); Chloride 104 mmol/L (98-107); Estimated Glomerular Filt Rate > 60 mL/min (>60); Globulin 2.4 g/dL (1.7-4.1); Glucose 95 mg/dL (70-99); HEMOLYSIS < 15 (0-50); Magnesium 2.1 mg/dL (1.6-2.3); Potassium 4.2 mmol/L (3.4-5.1); Sodium 140 mmol/L (137-145); Total Protein 6.5 g/dL (6.3-8.2)
== END ==
PROVIDERS: Family Provider Internal Medicine; PCP Internal Medicine; Referring Provider Specialist; Visit Provider Specialist
DX: I10 Essential (primary) hypertension (principal); R06.09 Other forms of dyspnea; I48.0 Paroxysmal atrial fibrillation; E78.2 Mixed hyperlipidemia
CPT/HCPCS: 36415; 80053; 80061; 83704; 83735; 85027

== ENCOUNTER → 2025-02-17 11:36 | Outpatient (CLI) | payer MEDICARE, OTHER, SELFPAY ==
[2023-03-08 10:43] VITALS: BMI 26.3
[2025-02-17 12:27] LABS: COVID-19 CEPHEID 4-PLEX PCR Negative (Negative); Influenza A - CEPHEID Flu A NEGATIVE (NEGATIVE); Influenza B - CEPHEID Flu B NEGATIVE (NEGATIVE)
== END ==
PROVIDERS: Family Provider Internal Medicine; PCP Internal Medicine; Visit Provider Physician Assistant
DX: R05.1 Acute cough (principal)
CPT/HCPCS: 87637

== ENCOUNTER → 2025-02-17 12:34 | Outpatient (CLI) | payer MEDICARE, OTHER, SELFPAY ==
[2023-03-08 10:43] VITALS: BMI 26.3
--- NOTE | 2025-02-17 12:35 | DI.RAD.S_ITS ---
PROCEDURE: XR CHEST 2V INDICATIONS: cough/fatigue 1 week, has pneumonia TECHNIQUE: 2 views of the chest were acquired. COMPARISON: [facility], CR, XR CHEST 1V, 07/26/2022, 14:09. FINDINGS: Surgical changes and devices: None. Lungs and pleura: No consolidation. Left calcified granulomas, unchanged. No pleural effusions or pneumothorax. Mediastinum: Mediastinal contours are unchanged. Heart size is normal. Bones and chest wall: No suspicious bony abnormalities. Soft tissues appear unremarkable. IMPRESSION: No acute cardiopulmonary abnormality is seen. Dictated by: Conrado Jovel M.D. on 02/17/2025 at 12:25 Approved by: Conrado Jovel M.D. on 02/17/2025 at 12:27
== END ==
PROVIDERS: Family Provider Internal Medicine; PCP Internal Medicine; Referring Provider Physician Assistant; Visit Provider Physician Assistant
DX: J06.9 Acute upper respiratory infection, unspecified (principal); R05.1 Acute cough
CPT/HCPCS: 71046; 87637

== ENCOUNTER → 2025-06-25 10:45 | Outpatient (CLI) | payer MEDICARE, OTHER, SELFPAY ==
[2023-03-08 10:43] VITALS: BMI 26.3
[2025-06-25 11:06] LABS: Hematocrit 48.8 % (41-53); Hemoglobin 16.7 g/dL (13.5-17.5); Mean Corpuscular HGB Conc 34.1 % (30-36); Mean Corpuscular Hemoglobin 32.1 PG (26-34); Mean Corpuscular Volume 94.1 fL (80-100); Platelet Count 156 X10^3/uL (150-400)
[2025-06-25 11:35] LABS: Alanine Aminotransferase 19 IU/L (<50); Albumin 4.6 g/dL (3.5-5.0); Albumin Globulin Ratio 1.5 (1.0-2.8); Alkaline Phosphatase 56 U/L (38-126); Blood Urea Nitrogen 13 mg/dL (9-20); Calcium 9.3 mg/dL (8.4-10.2); Carbon Dioxide 26 mmol/L (22-32); Chloride 105 mmol/L (98-107); Estimated Glomerular Filt Rate > 60 mL/min (>60); Globulin 3.0 g/dL (1.7-4.1); Glucose 93 mg/dL (70-99); HEMOLYSIS 24 (0-50); Potassium 4.1 mmol/L (3.4-5.1); Sodium 140 mmol/L (137-145); Total Protein 7.6 g/dL (6.3-8.2)
[2025-06-25 12:06] LABS: TSH w/ Reflex to FT4 0.78 uIU/mL (0.47-4.68)
== END ==
PROVIDERS: Family Provider Internal Medicine; PCP Internal Medicine; Referring Provider Internal Medicine; Visit Provider Internal Medicine
DX: I25.10 Atherosclerotic heart disease of native coronary artery without angina pectoris (principal); E78.2 Mixed hyperlipidemia
CPT/HCPCS: 36415; 80053; 84443; 85027

== ENCOUNTER → 2025-07-29 08:05 | Outpatient (CLI) | payer MEDICARE, OTHER, SELFPAY ==
[2023-03-08 10:43] VITALS: BMI 26.3
[2025-07-29 08:57] LABS: Hematocrit 44.9 % (41-53); Hemoglobin 15.2 g/dL (13.5-17.5); Mean Corpuscular HGB Conc 33.8 % (30-36); Mean Corpuscular Hemoglobin 32.1 PG (26-34); Mean Corpuscular Volume 94.9 fL (80-100); Platelet Count 127 X10^3/uL (150-400)
[2025-07-29 09:15] LABS: Alanine Aminotransferase 15 IU/L (<50); Albumin 4.1 g/dL (3.5-5.0); Albumin Globulin Ratio 1.6 (1.0-2.8); Alkaline Phosphatase 56 U/L (38-126); Blood Urea Nitrogen 13 mg/dL (9-20); Calcium 8.6 mg/dL (8.4-10.2); Carbon Dioxide 28 mmol/L (22-32); Chloride 105 mmol/L (98-107); Cholesterol 107 mg/dL (140-199); Estimated Glomerular Filt Rate > 60 mL/min (>60); Globulin 2.6 g/dL (1.7-4.1); Glucose 102 mg/dL (70-99); HDL Cholesterol 43 mg/dL (40-60); HEMOLYSIS < 15 (0-50); Potassium 4.2 mmol/L (3.4-5.1); Sodium 140 mmol/L (137-145); Total Protein 6.7 g/dL (6.3-8.2); Triglycerides 93 mg/dL (35-150)
== END ==
PROVIDERS: PCP Internal Medicine; Referring Provider Specialist; Visit Provider Specialist
DX: E78.2 Mixed hyperlipidemia (principal); I48.0 Paroxysmal atrial fibrillation
CPT/HCPCS: 36415; 80053; 80061; 85027